=== PATIENT | female | born 1945 | race Caucasian/White ===

== ENCOUNTER → 2017-06-09 13:33 | Outpatient (CLI) | payer MEDICARE, SELFPAY ==
[2017-06-09 14:56] LABS: Absolute Neutrophil Count 3.6 X10^3/uL (2.0-7.7); Basophil# 0.01 X10^3/uL; Basophil% 0.1 % (0-1); Eosinophil# 0.08 X10^3/uL; Eosinophils% 1.2 % (0-5); Hematocrit 40.6 % (37-47); Hemoglobin 13.6 g/dl (12.0-15.0); Lymphocyte % 36.8 % (19-41); Mean Corp Hgb Conc 33.5 g/gl (32-36); Mean Corpuscular Hgb 30.3 pg (27.0-32.0); Mean Corpuscular Volume 90.4 fL (81-99); Mean Platelet Vol. 10.6 fl (6.2-12.0); Monocyte# 0.59 X10^3/uL; Monocyte% 8.7 % (0-10); Neutrophil # 3.61 X10^3/uL (2.7-7.7); Neutrophil % 53.2 % (47-70); POSITIVE COUNT NO; POSITIVE DIFFERENTIAL NO; POSITIVE MORPHOLOGY NO; Platelet Count 314 K/mm3 (150-450); RBC Distribution Width CV 13.4 % (11.6-14.6); RBC Distribution Width SD 43.9 fl (35.1-43.9); Red Blood Count 4.49 M/mm3 (4.2-5.4); White Blood Count 6.8 K/mm3 (4.4-11.0)
[2017-06-09 15:19] LABS: ALB/GLOB Ratio 1.2 RATIO (0.9-2.4); AST(SGOT) 20 U/L (15-37); Alanine Aminotransfer ALT/SGPT 23 U/L (13-56); Alkaline Phosphatase 117 U/L (45-117); Anion Gap 7 (5-15); BUN 10 mg/dL (7-18); BUN/Creat Ratio 15.7 RATIO (10-20); Calcium,Total 8.9 mg/dL (8.5-10.1); Chloride 99 mmol/L (98-107); Creatinine, Serum 0.64 mg/dL (0.55-1.02); EST Glomerular Filtration Rate 97 mL/min (>60); Est Glom Filt Rate - Afr Amer 118 mL/min (>60); Globulin 3.3 g/dL (2.2-4.2); Glucose 96 mg/dL (74-106); Potassium 4.2 mmol/L (3.5-5.1); Protein, Total 7.3 g/dL (6.4-8.2); Sodium Level 134 mmol/L (136-145); Thyroid Stim Hormone (TSH) 2.21 uIU/mL (0.358-3.74); Vitamin D,25 Hydroxy 31.2 ng/mL (29.95-100.01)
== END ==
PROVIDERS: Family Provider Family Medicine Geriatric Medicine; PCP Family Medicine Geriatric Medicine; Visit Provider Family Medicine Geriatric Medicine
DX: I10 Essential (primary) hypertension (principal); E11.9 Type 2 diabetes mellitus without complications; E55.9 Vitamin D deficiency, unspecified
CPT/HCPCS: 36415; 80053; 82306; 84443; 85025

== ENCOUNTER → 2017-12-11 14:35 | Outpatient (CLI) | payer MEDICARE, SELFPAY ==
[2017-12-11 17:28] LABS: Absolute Lymphocyte Count 1.71 X10^3/ul (0.83-4.51); Absolute Neutrophil Count 2.4 X10^3/uL (2.0-7.7); Basophil# 0.01 X10^3/uL; Basophil% 0.2 % (0-1); Eosinophils% 2.1 % (0-5); Hematocrit 38.6 % (37-47); Hemoglobin 13.2 g/dl (12.0-15.0); Lymphocyte # 1.71 X10^3/ul (4.0); Mean Corp Hgb Conc 34.2 g/gl (32-36); Mean Corpuscular Hgb 30.8 pg (27.0-32.0); Mean Platelet Vol. 10.4 fl (6.2-12.0); Monocyte# 0.51 X10^3/uL; Monocyte% 10.7 % (0-10); Neutrophil # 2.41 X10^3/uL (2.7-7.7); Neutrophil % 50.8 % (47-70); Platelet Count 294 K/mm3 (150-450); RBC Distribution Width CV 13.5 % (11.6-14.6); Red Blood Count 4.29 M/mm3 (4.2-5.4); White Blood Count 4.8 K/mm3 (4.4-11.0)
[2017-12-11 17:30] LABS: POSITIVE COUNT NO; POSITIVE DIFFERENTIAL NO; POSITIVE MORPHOLOGY NO
[2017-12-11 17:57] LABS: ALB/GLOB Ratio 1.2 RATIO (0.9-2.4); AST(SGOT) 21 U/L (15-37); Alanine Aminotransfer ALT/SGPT 24 U/L (13-56); Albumin, Serum 3.9 g/dL (3.2-5.0); Alkaline Phosphatase 100 U/L (45-117); Anion Gap 10 (5-15); BUN 6 mg/dL (7-18); BUN/Creat Ratio 9.6 RATIO (10-20); Calcium,Total 9.4 mg/dL (8.5-10.1); Chloride 101 mmol/L (98-107); Creatinine, Serum 0.63 mg/dL (0.55-1.02); EST Glomerular Filtration Rate 99 mL/min (>60); Est Glom Filt Rate - Afr Amer 119 mL/min (>60); Globulin 3.3 g/dL (2.2-4.2); Glucose 92 mg/dL (74-106); Potassium 3.8 mmol/L (3.5-5.1); Protein, Total 7.2 g/dL (6.4-8.2); Sodium Level 135 mmol/L (136-145); Thyroid Stim Hormone (TSH) 1.41 uIU/mL (0.358-3.74)
[2017-12-12 09:13] LABS: Vitamin D,25 Hydroxy 23.4 ng/mL (29.95-100.01)
== END ==
PROVIDERS: Family Provider Family Medicine Geriatric Medicine; PCP Family Medicine Geriatric Medicine; Visit Provider Family Medicine Geriatric Medicine
DX: E11.9 Type 2 diabetes mellitus without complications (principal); I10 Essential (primary) hypertension; E55.9 Vitamin D deficiency, unspecified
CPT/HCPCS: 36415; 80053; 82306; 84443; 85025

== ENCOUNTER → 2018-06-09 13:51 | Outpatient (CLI) | payer MEDICARE, SELFPAY ==
[2018-06-09 16:35] LABS: Absolute Lymphocyte Count 2.44 X10^3/ul (0.83-4.51); Absolute Neutrophil Count 2.7 X10^3/uL (2.0-7.7); Basophil# 0.01 X10^3/uL; Basophil% 0.2 % (0-1); Eosinophil# 0.08 X10^3/uL; Eosinophils% 1.4 % (0-5); Hematocrit 39.4 % (37-47); Hemoglobin 13.1 g/dl (12.0-15.0); Lymphocyte # 2.44 X10^3/ul (4.0); Lymphocyte % 42.4 % (19-41); Mean Corp Hgb Conc 33.2 g/gl (32-36); Mean Corpuscular Hgb 30.2 pg (27.0-32.0); Mean Corpuscular Volume 90.8 fL (81-99); Mean Platelet Vol. 10.1 fl (6.2-12.0); Monocyte# 0.56 X10^3/uL; Monocyte% 9.7 % (0-10); Neutrophil # 2.66 X10^3/uL (2.7-7.7); Neutrophil % 46.3 % (47-70); Platelet Count 309 K/mm3 (150-450); RBC Distribution Width CV 13.9 % (11.6-14.6); RBC Distribution Width SD 45.4 fl (35.1-43.9); Red Blood Count 4.34 M/mm3 (4.2-5.4); White Blood Count 5.8 K/mm3 (4.4-11.0)
[2018-06-09 16:36] LABS: POSITIVE COUNT NO; POSITIVE DIFFERENTIAL NO; POSITIVE MORPHOLOGY NO
[2018-06-09 17:10] LABS: Vitamin D,25 Hydroxy 27.2 ng/mL (29.95-100.01)
[2018-06-09 17:14] LABS: ALB/GLOB Ratio 1.2 RATIO (0.9-2.4); AST(SGOT) 20 U/L (15-37); Alanine Aminotransfer ALT/SGPT 23 U/L (13-56); Albumin, Serum 3.8 g/dL (3.2-5.0); Alkaline Phosphatase 103 U/L (45-117); Anion Gap 7 (5-15); BUN 12 mg/dL (7-18); BUN/Creat Ratio 11.3 RATIO (10-20); Calcium,Total 9.3 mg/dL (8.5-10.1); Chloride 103 mmol/L (98-107); Creatinine, Serum 1.06 mg/dL (0.55-1.02); EST Glomerular Filtration Rate 54 mL/min (>60); Est Glom Filt Rate - Afr Amer 65 mL/min (>60); Globulin 3.3 g/dL (2.2-4.2); Glucose 80 mg/dL (74-106); Potassium 4.2 mmol/L (3.5-5.1); Protein, Total 7.1 g/dL (6.4-8.2); Sodium Level 137 mmol/L (136-145); Thyroid Stim Hormone (TSH) 3.46 uIU/mL (0.358-3.74)
== END ==
PROVIDERS: Family Provider Family Medicine Geriatric Medicine; PCP Family Medicine Geriatric Medicine; Visit Provider Family Medicine Geriatric Medicine
DX: E11.9 Type 2 diabetes mellitus without complications (principal); E55.9 Vitamin D deficiency, unspecified; I10 Essential (primary) hypertension
CPT/HCPCS: 36415; 80053; 82306; 84443; 85025

== ENCOUNTER → 2018-08-20 17:00 | Outpatient (CLI) | payer MEDICARE, SELFPAY | PROVIDERS: Family Provider Family Medicine Geriatric Medicine; PCP Family Medicine Geriatric Medicine; Visit Provider Family Medicine Geriatric Medicine | DX: N39.0 Urinary tract infection, site not specified (principal) | CPT/HCPCS: 87086; 87088; 87186 ==

== ENCOUNTER → 2018-12-15 08:58 | Outpatient (CLI) | payer MEDICARE, SELFPAY ==
[2018-12-15 12:16] LABS: Absolute Lymphocyte Count 2.34 X10^3/uL (0.83-4.51); Absolute Neutrophil Count 2.6 X10^3/uL (2.0-7.7); Basophil# 0.01 X10^3/uL; Basophil% 0.2 % (0-1); Eosinophils% 1.8 % (0-5); Hematocrit 38.7 % (37-47); Hemoglobin 13.1 g/dL (12.0-15.0); Lymphocyte # 2.34 X10^3/ul (4.0); Lymphocyte % 42.5 % (19-41); Mean Corp Hgb Conc 33.9 g/dL (32-36); Mean Corpuscular Hgb 30.7 pg (27.0-32.0); Mean Corpuscular Volume 90.6 fL (81-99); Mean Platelet Vol. 9.9 fl (6.2-12.0); Monocyte# 0.48 X10^3/uL; Monocyte% 8.7 % (0-10); NRBC Flagged by Analyzer 0 % (0-5); Neutrophil # 2.56 X10^3/uL (2.7-7.7); Neutrophil % 46.6 % (47-70); Platelet Count 323 K/mm3 (150-450); RBC Distribution Width CV 13.8 % (11.6-14.6); RBC Distribution Width SD 45.3 fl (35.1-43.9); Red Blood Count 4.27 M/mm3 (4.2-5.4); White Blood Count 5.5 K/mm3 (4.4-11.0)
[2018-12-15 12:39] LABS: Vitamin D,25 Hydroxy 30.4 ng/mL (29.95-100.01)
[2018-12-15 12:44] LABS: ALB/GLOB Ratio 0.9 RATIO (0.9-2.4); AST(SGOT) 12 U/L (15-37); Alanine Aminotransfer ALT/SGPT 22 U/L (13-56); Albumin, Serum 3.4 g/dL (3.2-5.0); Alkaline Phosphatase 107 U/L (45-117); Anion Gap 7 (5-15); BUN 8 mg/dL (7-18); BUN/Creat Ratio 12.8 RATIO (10-20); Calcium,Total 9.1 mg/dL (8.5-10.1); Chloride 107 mmol/L (98-107); Creatinine, Serum 0.63 mg/dL (0.55-1.02); EST Glomerular Filtration Rate 99 mL/min (>60); Est Glom Filt Rate - Afr Amer 119 mL/min (>60); Globulin 3.7 g/dL (2.2-4.2); Glucose 98 mg/dL (74-106); Potassium 3.7 mmol/L (3.5-5.1); Protein, Total 7.1 g/dL (6.4-8.2); Sodium Level 140 mmol/L (136-145); Thyroid Stim Hormone (TSH) 1.58 uIU/mL (0.358-3.74)
== END ==
PROVIDERS: Family Provider Family Medicine Geriatric Medicine; PCP Family Medicine Geriatric Medicine; Visit Provider Family Medicine Geriatric Medicine
DX: E11.9 Type 2 diabetes mellitus without complications (principal); I10 Essential (primary) hypertension; E55.9 Vitamin D deficiency, unspecified; N39.0 Urinary tract infection, site not specified
CPT/HCPCS: 36415; 80053; 82306; 84443; 85025; 87086

== ENCOUNTER → 2019-12-23 10:11 | Outpatient (CLI) | payer MEDICARE, SELFPAY ==
[2019-12-23 12:35] LABS: Absolute Lymphocyte Count 1.86 X10^3/uL (0.83-4.51); Absolute Neutrophil Count 2.8 X10^3/uL (2.0-7.7); Basophil# 0.02 X10^3/uL; Basophil% 0.4 % (0-1); Eosinophil# 0.11 X10^3/uL; Eosinophils% 2.1 % (0-5); Hematocrit 38.2 % (37-47); Hemoglobin 12.9 g/dL (12.0-15.0); Lymphocyte # 1.86 X10^3/ul (4.0); Lymphocyte % 34.7 % (19-41); Mean Corp Hgb Conc 33.8 g/dL (32-36); Mean Corpuscular Hgb 29.6 pg (27.0-32.0); Mean Corpuscular Volume 87.6 fL (81-99); Mean Platelet Vol. 10.2 fl (6.2-12.0); Monocyte# 0.53 X10^3/uL; Monocyte% 9.9 % (0-10); NRBC Flagged by Analyzer 0 % (0-5); Neutrophil # 2.83 X10^3/uL (2.7-7.7); Neutrophil % 52.7 % (47-70); Platelet Count 346 K/mm3 (150-450); RBC Distribution Width CV 13.4 % (11.6-14.6); RBC Distribution Width SD 43.7 fl (35.1-43.9); Red Blood Count 4.36 M/mm3 (4.2-5.4); White Blood Count 5.4 K/mm3 (4.4-11.0)
[2019-12-23 12:50] LABS: Vitamin D,25 Hydroxy 43.3 ng/mL
[2019-12-23 12:58] LABS: ALB/GLOB Ratio 1.1 RATIO (0.9-2.4); AST(SGOT) 18 U/L (15-37); Alanine Aminotransfer ALT/SGPT 18 U/L (13-56); Albumin, Serum 3.8 g/dL (3.2-5.0); Alkaline Phosphatase 103 U/L (45-117); Anion Gap 6 (5-15); BUN 12 mg/dL (7-18); BUN/Creat Ratio 17.6 RATIO (10-20); Calcium,Total 9.6 mg/dL (8.5-10.1); Chloride 102 mmol/L (98-107); Creatinine, Serum 0.68 mg/dL (0.55-1.02); EST Glomerular Filtration Rate 89 mL/min (>60); Est Glom Filt Rate - Afr Amer 108 mL/min (>60); Globulin 3.6 g/dL (2.2-4.2); Glucose 101 mg/dL (74-106); Potassium 3.8 mmol/L (3.5-5.1); Protein, Total 7.4 g/dL (6.4-8.2); Sodium Level 135 mmol/L (136-145); Thyroid Stim Hormone (TSH) 2.24 uIU/mL (0.358-3.74)
== END ==
PROVIDERS: PCP Family Medicine Geriatric Medicine; Visit Provider Family Medicine Geriatric Medicine
DX: E11.9 Type 2 diabetes mellitus without complications (principal); E55.9 Vitamin D deficiency, unspecified; I10 Essential (primary) hypertension
CPT/HCPCS: 36415; 80053; 82306; 84443; 85025

== ENCOUNTER → 2020-06-22 09:49 | Outpatient (CLI) | payer MEDICARE, SELFPAY ==
[2020-06-22 13:10] LABS: Absolute Lymphocyte Count 2.94 X10^3/uL (0.83-4.51); Absolute Neutrophil Count 2.4 X10^3/uL (2.0-7.7); Basophil# 0.03 X10^3/uL; Basophil% 0.5 % (0-1); Eosinophil# 0.19 X10^3/uL; Eosinophils% 3.1 % (0-5); Hematocrit 40.3 % (37-47); Hemoglobin 13.3 g/dL (12.0-15.0); Lymphocyte # 2.94 X10^3/ul (4.0); Mean Corpuscular Hgb 29.9 pg (27.0-32.0); Mean Corpuscular Volume 90.6 fL (81-99); Mean Platelet Vol. 10.5 fl (6.2-12.0); Monocyte# 0.58 X10^3/uL; Monocyte% 9.5 % (0-10); NRBC Flagged by Analyzer 0 % (0-5); Neutrophil # 2.38 X10^3/uL (2.7-7.7); Neutrophil % 38.7 % (47-70); Platelet Count 350 K/mm3 (150-450); RBC Distribution Width CV 13.4 % (11.6-14.6); RBC Distribution Width SD 44.6 fl (35.1-43.9); Red Blood Count 4.45 M/mm3 (4.2-5.4); White Blood Count 6.1 K/mm3 (4.4-11.0)
[2020-06-22 13:23] LABS: ALB/GLOB Ratio 1.2 RATIO (0.9-2.4); AST(SGOT) 22 U/L (15-37); Alanine Aminotransfer ALT/SGPT 26 U/L (13-56); Albumin, Serum 3.8 g/dL (3.2-5.0); Alkaline Phosphatase 107 U/L (45-117); Anion Gap 5 (5-15); BUN 17 mg/dL (7-18); BUN/Creat Ratio 23.8 RATIO (10-20); Calcium,Total 9.5 mg/dL (8.5-10.1); Chloride 99 mmol/L (98-107); Creatinine, Serum 0.72 mg/dL (0.55-1.02); EST Glomerular Filtration Rate 84 mL/min (>60); Est Glom Filt Rate - Afr Amer 102 mL/min (>60); Globulin 3.3 g/dL (2.2-4.2); Glucose 91 mg/dL (74-106); Potassium 3.6 mmol/L (3.5-5.1); Protein, Total 7.1 g/dL (6.4-8.2); Sodium Level 135 mmol/L (136-145); Thyroid Stim Hormone (TSH) 2.15 uIU/mL (0.358-3.74)
== END ==
PROVIDERS: PCP Family Medicine Geriatric Medicine; Visit Provider Family Medicine Geriatric Medicine
DX: I10 Essential (primary) hypertension (principal); E11.9 Type 2 diabetes mellitus without complications; E55.9 Vitamin D deficiency, unspecified
CPT/HCPCS: 36415; 80053; 82306; 84443; 85025

== ENCOUNTER → 2020-12-27 11:10 | Outpatient (CLI) | payer MEDICARE, SELFPAY ==
[2020-12-27 13:10] LABS: Absolute Lymphocyte Count 1.57 X10^3/uL (0.83-4.51); Absolute Neutrophil Count 2.3 X10^3/uL (2.0-7.7); Basophil# 0.03 X10^3/uL; Basophil% 0.7 % (0-1); Eosinophil# 0.16 X10^3/uL; Eosinophils% 3.6 % (0-5); Hematocrit 41.1 % (37-47); Hemoglobin 13.4 g/dL (12.0-15.0); Lymphocyte # 1.57 X10^3/ul (0.83-4.51); Lymphocyte % 35.2 % (19-41); Mean Corp Hgb Conc 32.6 g/dL (32-36); Mean Corpuscular Hgb 30.1 pg (27.0-32.0); Mean Corpuscular Volume 92.4 fL (81-99); Mean Platelet Vol. 10.2 fl (6.2-12.0); Monocyte# 0.41 X10^3/uL; Monocyte% 9.2 % (0-10); NRBC Flagged by Analyzer 0 % (0-5); Neutrophil # 2.29 X10^3/uL (2.7-7.7); Neutrophil % 51.3 % (47-70); Platelet Count 320 K/mm3 (150-450); RBC Distribution Width CV 13.5 % (11.6-14.6); RBC Distribution Width SD 45.4 fl (35.1-43.9); Red Blood Count 4.45 M/mm3 (4.2-5.4); White Blood Count 4.5 K/mm3 (4.4-11.0)
[2020-12-27 13:55] LABS: AST(SGOT) 16 U/L (15-37); Alanine Aminotransfer ALT/SGPT 21 U/L (13-56); Albumin, Serum 3.8 g/dL (3.2-5.0); Alkaline Phosphatase 108 U/L (45-117); Anion Gap 6 (5-15); BUN 20 mg/dL (7-18); BUN/Creat Ratio 27.2 RATIO (10-20); Calcium,Total 9.2 mg/dL (8.5-10.1); Chloride 106 mmol/L (98-107); Creatinine, Serum 0.73 mg/dL (0.55-1.02); EST Glomerular Filtration Rate 82 mL/min (>60); Est Glom Filt Rate - Afr Amer 99 mL/min (>60); Globulin 3.8 g/dL (2.2-4.2); Glucose 90 mg/dL (74-106); Potassium 3.3 mmol/L (3.5-5.1); Protein, Total 7.6 g/dL (6.4-8.2); Sodium Level 140 mmol/L (136-145); Thyroid Stim Hormone (TSH) 1.25 uIU/mL (0.358-3.74)
[2020-12-27 14:06] LABS: Vitamin D,25 Hydroxy 39.9 ng/mL
== END ==
PROVIDERS: PCP Family Medicine Geriatric Medicine; Visit Provider Family Medicine Geriatric Medicine
DX: E11.9 Type 2 diabetes mellitus without complications (principal); E55.9 Vitamin D deficiency, unspecified; I10 Essential (primary) hypertension
CPT/HCPCS: 36415; 80053; 82306; 84443; 85025

== ENCOUNTER 2021-03-30 05:31 | Day surgery (SDC) | payer MEDICARE, SELFPAY ==
[2021-03-30] VITALS (9 sets, daily range): BP systolic 93–135; BP diastolic 44–83; PULSE 55–64; RESP 14–16; TEMP 36.1–36.7; O2SAT 90–94; BMI 27.3
--- NOTE | 2021-03-30 | LES_PTH ---
PATIENT: JOLYNN WALTON LOC: [facility] [place] U#:[id number] AGE/SX: 75/F ROOM: RE03/30/[address]: Dr. Dev Del Real MD : [id number] BED: DIS: 03/30/2021 SPEC #: [id number] RECD: 03/30/21 08:52 STATUS: STEFF REDany #: [id number] ERIC: 03/30/21 00:[address]: Dev Del Real DEPT: SURGICAL PATHOLOGY RECD BY: Shayy Kahn ENTERED: 03/30/21 10:42 SP TYPE: Lesion OTHR DR: Dr. Faraz Merritt MD Tissues: A - Skin of nose, NOS B - Skin of nose, NOS C - Skin of nose, NOS D - Skin of nose, NOS Procedures: Frozen Section (charge) Surgery Specimen Level IV HEADER OPERATION: Excision, lesions base of nose, intranasal lesions x2, frozen section PRE-OP DIAGNOSIS: 1.8 cm lesion base of left nostril involving the external vestibule and extending onto the nasal floor of the nasal cavity and extending inferiorly onto the skin of upper lip; 7 mm actinic lesion nasal dorsum, superior and inferior TISSUE SUBMITTED: A ? 1.8 cm basal cell carcinoma base of left nostril onto the nasal floor of nasal cavity and extending inferiorly onto skin of upper lip, B ? 7 mm actinic lesion nasal dorsum, superior, C - 7 mm actinic lesion nasal dorsum, inferior, D ? 2 cm basal cell carcinoma additional margins, suture perry 12 o?clock FROZEN SECTION DIAGNOSIS A. Skin lesion, base of left nostril, shave biopsy: Basal cell carcinoma. B. Skin lesion, nasal dorsum inferior, shave biopsy: Actinic change. C. Skin lesion, nasal dorsum, superior, shave biopsy: Actinic change. Focal area suspicious for basal cell carcinoma. AM:jackeline 03/30/2021 MICROSCOPIC DIAGNOSIS A. Skin lesion at base of left nostril, shave biopsy: Basal cell carcinoma extending to deep margin of excision. B. Skin of nasal dorsum, inferior, shave biopsy: Actinic change. Extensive solar elastosis. C. Skin of nasal dorsum, superior, shave biopsy: Actinic change with seborrheic keratosis-like features. Extensive solar elastosis. D. Skin lesion at base of left nostril, excisional biopsy: Basal cell carcinoma. Changes of recent biopsy. Solar elastosis. See comment. AM:jackeline 04/02/2021 COMMENT D. The lesion extends to the peripheral and focal deep 9 o?clock margin of excision. Clinical correlation is suggested. MICROSCOPIC DESCRIPTION Slides are reviewed. GROSS DESCRIPTION A - Received fresh for frozen section consultation labeled with the patient's name is a specimen designated skin lesion base of left nostril. The specimen consists of a discoid fragment of gutiérrez shaved skin measuring 1.7 x 1.2 x 0.5 cm. The specimen is inked, serially sectioned and totally submitted in one cassette for frozen section consultation. B - Received fresh for frozen section consultation labeled with the patient's name is a specimen designated ?lesion nasal dorsum, inferior.? The specimen consists of a discoid fragment of gutiérrez shaved skin measuring 1.2 x 0.5 x 0.2 cm. The specimen is inked, serially sectioned and totally submitted in one cassette for frozen section consultation. C - Received fresh for frozen section consultation labeled with the patient's name is a specimen designated ?lesion nasal dorsum, superior.? The specimen consists of a discoid fragment of gutiérrez shaved skin measuring 0.8 x 0.7 x 0.1 cm. The specimen is inked, serially sectioned and totally submitted in one cassette for frozen section consultation. D - Received in fixative is one container labeled with the patient's name and designated basal cell carcinoma additional margins. The specimen consists of a C-shaped fragment of skin, attached soft tissue and cartilage measuring 3.2 x 2 x 0.5 cm. An ulcerated area is present on the cutaneous surface measuring 2 cm. A suture is present at the 12 o?clock margin. The specimen is inked as follows: 12 o?clock ? black, 3 o?clock ? green, 6 o?clock ? blue and 9 o?clock ? red. The specimen is serially sectioned and totally submitted in three cassettes. / AM:jackeline 03/30/21 TC:0 CPT: 60268 x3, 93140 x4
--- NOTE | 2021-03-30 02:39 | PCM.HP.BLA ---
History and Physical Date of Admission: 03/30/21 HISTORY OF PRESENT ILLNESS 75 YEAR OLD WOMAN PRESENTS FOR EVALUATION FOR TBSE. SHE HAS CONCERNS ABOUT A LESION LOCATED AT THE BASE OF HER LEFT NOSTRIL INVOLVING THE EXTERNAL VESTIBULE AND EXTENDING ONTO THE NASAL FLOOR OF THE NASAL CAVITY. THERE IS ALSO EXTENSION INFERIORLY ONTO THE SKIN OF THE UPPER LIP. SHE ALSO COMPLAINS OF TWO LESIONS ON HER NASAL DORSUM THAT ARE TANNISH IN COLOR AND SCABBY. SHE DENIES FEVER. SHE DENIES TRAUMA. SHE DENIES RECENT INFECTION. SHE PRESENTS AT THIS TIME FOR FURTHER EVALUATION AND TREATMENT. PAST MEDICAL HISTORY Actinic keratosis Anxiety Bone fracture Carpal tunnel syndrome of right wrist Cataracts, bilateral Diabetes type 2, controlled Family history of skin cancer Former smoker Hemoglobin A1c less than 7.0% High blood pressure High cholesterol Neoplasm of unspecified behavior of bone, soft tissue, and skin UTI (urinary tract infection) PAST SURGICAL HISTORY History of carpal tunnel release History of left knee surgery ALLERGIES Cephalosporins pneumococcal vaccine tetracycline codeine Sulfa (Sulfonamide Antibiotics) MEDICATIONS diazepam diltiazem HCl hydrochlorothiazide metformin potassium chloride [Klor-Con M20] simvastatin aspirin FAMILY HISTORY Daughter - Alcoholism, Alcoholic cirrhosis of liver, Skin cancer Father - Angina at rest, Hypertension Son - Anxiety, Diabetes, Hypertension, Skin cancer Grandmother - Arthritis Mother - Diabetes Grandmother - CVA (cerebral vascular accident) Brother - Cancer, Diabetes Sister - Heart disease Brother - Lung cancer Other - Family history of skin cancer SOCIAL HISTORY Smoking Status: Former smoker second hand exposure: Yes alcohol intake: never substance use type: does not use REVIEW OF SYSTEMS General - Denies fever, fatigue, and weight loss. Eyes - Has cataracts. Denies glaucoma. ENT - Denies nasal congestion and sore throat. Endocrine - Denies excessive thirst and urination. Skin - Denies skin cancer. DOES HAVE FAMILY HISTORY OF SKIN CANCER. HAS ENLARGING LESION LEFT NOSE INVOLVING THE EXTERNAL VESTIBULE AND EXTENDING ONTO THE NASAL FLOOR OF THE NASAL CAVITY AND ONTO THE SKIN OF THE UPPER LIP. ALSO HAS ENLARGING SCABBY LESIONS X2 NASAL DORSUM. Musculoskeletal - Denies joint pain, weakness of muscles and joints, back pain, and arthritis. Has joint stiffness. Neuro - Denies headaches. Cardiovascular - Denies chest pain, fatigue, and shortness of breath with exertion. Psych - Denies anxiety and depression. Respiratory - Denies chronic cough and shortness of breath. PATIENT IS A FORMER SMOKER. Gastrointestinal - Denies nausea, vomiting, diarrhea, and constipation. Hematologic - Denies abnormal bruising and bleeding. Genitourinary - Denies hematuria and urinary frequency. PHYSICAL EXAMINATION General - Alert and Oriented HEENT - PERRL. EOMI. Throat is clear. THERE IS A LESION LOCATED AT THE BASE OF HER LEFT NOSTRIL INVOLVING THE EXTERNAL VESTIBULE AND EXTENDING ONTO THE NASAL FLOOR OF THE NASAL CAVITY. THERE IS ALSO EXTENSION INFERIORLY ONTO THE SKIN OF THE UPPER LIP. MEASURES 2 X 1.2 CM. CLINICALLY CONSISTENT WITH A BASAL CELL CARCINOMA. IT IS NODULAR AND RAISED IN CONFIGURATION. HAS IRREGULAR BORDERS. NO ULCERATION. IT EXTENDS INFERIORLY ONTO THE SKIN OF THE UPPER LIP CLOSE TO THE LEFT PHILTRAL COLUMN. The external nasal vestibular opening on the right measures 1 cm and on the left measures 2 cm. The growth of the tumor has distorted the left nasal ala ON THE NASAL DORSUM, SUPERIOR, IS A TANNISH SCABBY LESION THAT MEASURES 7 MM. HAS IRREGULAR BORDERS. NO ULCERATION. LESION IS NONTENDER. LOOKS ACTINIC IN NATURE. ON THE NASAL DORSUM, INFERIOR, IS A TANNISH SCABBY LESION THAT MEASURES 7 MM. HAS IRREGULAR BORDERS. NO ULCERATION. LESION IS NONTENDER. LOOKS ACTINIC IN NATURE. No other suspicious lesions noted. Neck - Supple and nontender. No cervical adenopathy. No suspicious lesions noted. Lungs - Clear to auscultation. Heart - Regular rate and rhythm. Abdomen - Soft and nondistended. Extremities - FROM. No axillary adenopathy. Radial pulses are palpable. No suspicious lesions noted. Neuro - CN II-XII grossly intact. Psych - Normal mood and affect. ASSESSMENT 1. 2 CM LESION BASE OF LEFT NOSTRIL INVOLVING THE EXTERNAL VESTIBULE AND EXTENDING ONTO THE NASAL FLOOR OF THE NASAL CAVITY AND EXTENDING INFERIORLY ONTO THE SKIN OF THE UPPER LIP. 2. 7 MM ACTINIC LESION NASAL DORSUM, SUPERIOR. 3. 7 MM ACTINIC LESION NASAL DORSUM, INFERIOR. 4. FAMILY HISTORY OF SKIN CANCER. 5. DIABETES MELLITUS. 6. HGBA1C 5.7. 7. FORMER SMOKER. PLAN PATIENT HAS A LESION BASE OF LEFT NOSTRIL INVOLVING THE EXTERNAL VESTIBULE AND EXTENDING ONTO THE NASAL FLOOR OF THE NASAL CAVITY AND EXTENDING INFERIORLY ONTO THE SKIN OF THE UPPER LIP. EXCISION OF THIS LESION WILL INVOLVE MULTIPLE AESTHETIC SUBUNITS OF THE NOSE AND UPPER LIP. FIRST STEP IS TO ESTABLISH A DIAGNOSIS. THE LESION IS CLINICALLY CONSISTENT WITH A BASAL CELL CARCINOMA. WILL DO A FROZEN SECTION INITIALLY. ONCE BASAL CELL CARCINOMA IS CONFIRMED THE LESION NEEDS TO BE EXCISED WHICH WILL INVOLVE THE LATERAL NASAL ALA AND COLUMELLA A PARTIAL RHINECTOMY. SHE WILL NEED COMPLEX NASAL RECONSTRUCTION WITH A 2 STAGE FOREHEAD FLAP TO PROVIDE SOFT TISSUE COVERAGE, CARTILAGE GRAFTING FOR SUPPORT, AND NASAL LINING FLAPS OR SKIN GRAFTING FOR THE INNER MUCOSAL LINING. IN 3 WEEKS PATIENT WILL RETURN TO THE OPERATING ROOM FOR THE SECOND STAGE WHICH IS DIVISION AND INSET FOREHEAD FLAP TO THE NOSE. ALSO AT THE TIME OF THE FOREHEAD FLAP THERE WILL BE A WOUND INVOLVING THE SKIN OF THE UPPER LIP. PERIALAR CRESCENTERIC ADVANCEMENT SKIN FLAPS WOULD BE NECESSARY. BILATERAL FLAPS MAY BE NECESSARY. OTHER OPTION WOULD BE JUST TO SKIN GRAFT THE UPPER LIP DEFECT INITIALLY. AFTER THE COMPLEX NASAL RECONSTRUCTION IS COMPLETED AND HEALED, CAN RE-EVALUATE THE UPPER LIP IN 9-12 MONTHS FOR A SURGICAL EXCISION OF THE SKIN GRAFT AND THEN PROCEED WITH THE PERIALAR CRESCENTERIC ADVANCEMENT FLAPS. DEPENDING ON THE UPPER LIP DEFECT WHICH MAY EXTEND CENTRALLY, THE CENTRAL DEFECT MAY NEED AN ADDITIONAL RUDY CROSS LIP FLAP. I DON'T WANT TO DO THE FOREHEAD FLAP AND THESE MULTIPLE LIP FLAPS AT THE SAME TIME. ALSO AT THE TIME OF THE INITIAL PARTIAL RHINECTOMY, I WOULD BIOPSY THE LESIONS ON THE NASAL DORSUM A SHAVE EXCISION. IF ACTINIC, I SUSPECT, THEN CAN PROCEED WITH ALDARA CREAM THERAPY. IT IS APPLIED DAILY AT NIGHT 5 DAYS PER WEEK FOR 6 WEEKS. THEN RE-EVALUATE IN TWO MONTHS. OTHER OPTION IS IF IT'S ACTINIC, PROCEED WITH SURGICAL EXCISION. IF THE BIOPSIES SHOW CARCINOMA THEN PROCEED WITH SURGICAL EXCISION. THE WOUNDS CAN EITHER BE SKIN GRAFTED OR BE INCORPORATED INTO THE FOREHEAD FLAP. THESE SURGERIES WOULD BE DONE UNDER GENERAL ANESTHESIA. THE FORMATION OF THE FOREHEAD FLAP WOULD REQUIRE A SURGICAL OBSERVATION OVERNIGHT STAY IN THE HOSPITAL. THE OTHERS CAN PROBABLY BE DONE AN OUTPATIENT. THE FOREHEAD WILL NEED TO EXTEND ALL THE WAY TO THE BASE OF THE COLUMELLA AND LATERAL NASAL ALA. SO THE FLAP WOULD EXTEND INTO THE SCALP TO PROVIDE ENOUGH LENGTH TO ROTATE THE FLAP. THE TIP OF THE FLAP MAY HAVE RESIDUAL HAIR GROWTH THAT CAN BE ADDRESSED IN THE FUTURE WITH LASER HAIR REMOVAL. AN ADDITIONAL FLAP THAT CAN BE USED IF NECESSARY TO HELP CLOSE THIS COMPLEX CARCINOMA DEFECT IS THE NASOLABIAL FLAP WHICH IS ALSO A TWO STAGE FLAP THAT INVOLVES A DIVISION AND INSET IN 3 WEEKS. CARTILAGE GRAFTS CAN COME FROM THE NASAL DORSUM, THE EARS, AND IF NECESSARY FROM THE RIB. Patient was informed of the risks and complications of the procedure including alternatives to surgery. These were discussed with the patient personally. Patient voices understanding and wishes to proceed. Some of the risks and complications were included in a form from the [employer] [place] [employer]. PATIENT HAS DIABETES MELLITUS. THE HGBA1C IS NOT GOING TO MATTER WHEN EXCISING THE CARCINOMA. HOWEVER, RECONSTRUCTING THE DEFECT IS ELECTIVE AND THE HGB A1C NEEDS TO BE LESS THAN 8. AT PRESENT, THE PATIENT HAD A HGBA1C DONE WHICH WAS 5.7 ON 12/27/20. We discussed the current risks associated with COVID-19. While it is understood that there is a community spread of COVID-19, the risk of candy COVID-19 while at [facility] ([facility]) is very low; however, the risk cannot be completely mitigated because of the community spread of the disease. We discussed in detail the risk of exposure to and/or potential harm posed by the COVID-19 virus with having a surgery/procedure at this time versus the risk of delaying the surgery/procedure. It is not possible to know either the risk of delaying the surgery or procedure or chance of getting an infection with perfect accuracy, but a joint decision was made to proceed at this time with the scheduled surgery/procedure as indicated on the consent form. Patient was notified that we will need to comply with any screening or testing [facility] wishes to perform or that surgery may be delayed for any positive results. Procedure Criteria Procedure Type: Elective COVID Risk Discussion: The surgeon/proceduralist and patient have discussed in detail the risk of exposure to and/or potential harm posed by the COVID-19 virus with having a surgery/procedure at this time versus the risk of delaying the surgery/procedure. It is not possible to know either the risk of delaying the surgery or procedure or chance of getting an infection with perfect accuracy, but a joint decision was made between the patient and the surgeon/proceduralist to proceed at this time with the scheduled surgery/procedure as indicated on the consent form. Assessment & Plan Assessment/Plan (1) Neoplasm of unspecified behavior of bone, soft tissue, and skin: (2) Actinic keratosis: (3) Family history of skin cancer: (4) Diabetes type 2, controlled: (5) Hemoglobin A1c less than 7.0%: (6) Former smoker:
[2021-03-30] MEDS: Lactated Ringers 1,000 ML 15 ML IV (06:50)
[2021-03-30 07:30] LABS: Bedside Glucose 110 mg/dL (70-110)
[2021-03-30] MEDS: Lidocaine 1% /Epi 1:100 (20ml) 20 ML Vial (09:37)
[2021-03-30] MEDS: Mupirocin Ointment 22gm Tube 1 APPLIC (10:50)
--- NOTE | 2021-03-30 10:59 | OP.PCM_ITS ---
Problems Associated Problem List Diagnoses (1) Basal cell carcinoma (BCC) of left side of nose: (2) Basal cell carcinoma of skin of left upper lip: (3) Open wound of nasal cavity with complication: (4) Open wound of lip, complicated: (5) Actinic keratosis: (6) Diabetes type 2, controlled: (7) Former smoker: (8) Hemoglobin A1c less than 7.0%: (9) Family history of skin cancer: Report of Operation Date of Procedure: 03/30/21 Pre-Operative Diagnosis: 1. 2 CM LESION BASE OF LEFT NOSTRIL INVOLVING THE EXTERNAL VESTIBULE AND EXTENDING ONTO THE NASAL FLOOR OF THE NASAL CAVITY AND EXTENDING INFERIORLY ONTO THE SKIN OF THE UPPER LIP. 2. 7 MM ACTINIC LESION NASAL DORSUM, SUPERIOR. 3. 7 MM ACTINIC LESION NASAL DORSUM, INFERIOR. 4. FAMILY HISTORY OF SKIN CANCER. 5. DIABETES MELLITUS. 6. HGBA1C 5.7. 7. FORMER SMOKER. Post-Operative Diagnosis: 1. 2 CM basal cell carcinoma wound BASE OF LEFT NOSTRIL INVOLVING THE EXTERNAL VESTIBULE AND EXTENDING ONTO THE NASAL FLOOR OF THE NASAL CAVITY, lateral nasal alar rim laterally, base of columella medially, and SKIN OF THE UPPER LIP and philtrum inferiorly. 2. 2 cm basal cell carcinoma wound skin of upper lip and philtrum. 2. 7 MM ACTINIC LESION NASAL DORSUM, SUPERIOR, with possible small focus of basal cell carcinoma. 3. 7 MM ACTINIC LESION NASAL DORSUM, INFERIOR. 4. FAMILY HISTORY OF SKIN CANCER. 5. DIABETES MELLITUS. 6. HGBA1C 5.7. 7. FORMER SMOKER. Surgery/Procedure Performed:: 1. Surgical preparation left upper lip and philtrum with excision basal cell carcinoma from base of left nostril. 2. Excision 2 CM basal cell carcinoma BASE OF LEFT NOSTRIL INVOLVING THE EXTERNAL VESTIBULE AND EXTENDING ONTO THE NASAL FLOOR OF THE NASAL CAVITY, lateral nasal alar rim laterally, base of columella medially with partial rhinectomy. 3. Intradermal excision 7 MM ACTINIC LESION NASAL DORSUM, SUPERIOR, with possible small focus of basal cell carcinoma. 4. Intradermal excision 7 MM ACTINIC LESION NASAL DORSUM, INFERIOR. Description of Surgical Findings:: 75 YEAR OLD WOMAN PRESENTS FOR EVALUATION FOR TBSE. SHE HAS CONCERNS ABOUT A LESION LOCATED AT THE BASE OF HER LEFT NOSTRIL INVOLVING THE EXTERNAL VESTIBULE AND EXTENDING ONTO THE NASAL FLOOR OF THE NASAL CAVITY. THERE IS ALSO EXTENSION INFERIORLY ONTO THE SKIN OF THE UPPER LIP. SHE ALSO COMPLAINS OF TWO LESIONS ON HER NASAL DORSUM THAT ARE TANNISH IN COLOR AND SCABBY. SHE DENIES FEVER. SHE DENIES TRAUMA. SHE DENIES RECENT INFECTION. Patient was informed of the risks and complications of the procedure including alternatives to surgery. These were discussed with the patient personally. Patient voices understanding and wishes to proceed. Some of the risks and complications were included in a form from the [employer]. Frozen section base of left nostril involving the external vestibule and extending onto the nasal floor of the nasal cavity, lateral nasal alar rim laterally, base of columella medially, and skin of the upper lip and philtrum inferiorly - basal cell carcinoma. Frozen section lesion nasal dorsum, superior - actinic keratosis with possible small focus of basal cell carcinoma. Frozen section lesion nasal dorsum, inferior - actinic keratosis and no carcinoma seen. Size of complex left nasal defect with extension on to upper lip and philtrum - 4 x 4 cm. 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 Lesion base of left nostril involving the external vestibule and extending onto the nasal floor of the nasal cavity, lateral nasal alar rim laterally, base of columella medially, and skin of the upper lip and philtrum inferiorly to Pathology as a frozen section for analysis to rule out carcinoma. 2. Lesion nasal dorsum, superior, to Pathology as a frozen section for analysis to rule out carcinoma. 3. Lesion nasal dorsum, inferior, to Pathology as a frozen section for analysis to rule out carcinoma. 4. Basal cell carcinoma base of left nostril involving the external vestibule and extending onto the nasal floor of the nasal cavity, lateral nasal alar rim laterally, base of columella medially, and skin of the upper lip and philtrum inferiorly to Pathology. Drains: None. Estimated Blood Loss (mL): 20. Description of Procedure: Patient was taken to OR in supine position and was given IV sedation. The face was prepped and draped in the usual fashion. SCD's were placed for DVT prophylaxis. Perioperative antibiotics were given intravenously. The lesion base of left nostril and the lesions x2 nasal dorsum were infiltrated with xylocaine and epinephrine. After waiting 5 minutes for the anesthetic to take effect, I excised these lesions in an intradermal fashion and sent them to Pathology as frozen sections for analysis to rule out carcinoma. Frozen section showed the complex lesion base of left nostril was a basal cell carcinoma and the lesion nasal dorsum, inferior, was actinic keratosis and no carcinoma seen and the lesion nasal dorsum, superior, was actinic keratosis with possible small focus of basal cell carcinoma. Therefore further excision will be done for the basal cell carcinoma base of left nostril with a 1 cm margin in all directions. The additional margin involved the nasal floor of the nasal cavity, lateral nasal alar rim laterally, base of columella medially, and skin of upper lip and philtrum inferiorly. A suture was marked at the 12 oclock position for pathology orientation. The additional margin was then sent to Pathology for analysis to rule out carcinoma at the margins. For the nasal dorsum lesions, will wait for the permanent pathology to confirm the presence of a small focus of basal cell carcinoma. At the time of the complex nasal reconstruction, can excise both lesions nasal dorsum with skin grafting. I think if I used the proximal portion of the forehead flap to provide soft tissue coverage over the nasal dorsum, it may be too bulky. If I proceed this way, then at the division and inset of the forehead flap, I could debulk the portion over the nasal dorsum. I wouldn't debulk at the time of the creation of the flap because of the risk of vascular compromise to the flap. For these two actinic keratoses on her nasal dorsum, hemostasis was obtained with gauze compression along with silver nitrate chemical cauterization. Antibiotic ointment was applied. The size of the complex nasal wound with extension onto the upper lip is 4 x 4 cm. The complex nasal wound was dressed with Silver dressing followed by 2x2 gauze and secured to the skin with 4-0 Nylon tie over stent suture dressing. Patient tolerated the procedure well and was sent to PACU in satisfactory condition. Patient will be sent home on antibiotics and pain medication. Patient will followup in the office early next week for take down of the operative dressing and a wound check and for discussion of the pathology report when available. Grafts/Implants Used: None. Complications None. Admit VTE Documentation VTE Present on Admission: No VTE Mechan Device Prophylaxis: SCD's VTE Pharm Prophylaxis ordered?: No Addendum Addendum: Surgery Charges CPT - 14816 ICD-10 - C44.311, S01.20xA, C44.01, E11.9, R73.09, Z80.8, Z87.891 14735 C44.01, S01.501A, C44.311, E11.9, R73.09, Z80.8, Z87.891 [id number] L57.0, C44.311, C44.01, E11.9, R73.09, Z80.8, Z87.891 [id number] L57.0, C44.311, C44.01, E11.9, R73.09, Z80.8, Z87.891
--- NOTE | 2021-03-30 11:30 | DCINST_ITS ---
Discharge Instructions Diet Discharge Diet: Carb Control Diet and - (encourage nutritional supplementation with protein to help the healing process.) Activity Discharge Activity: May Not Drive, May Shower (from the neck down.) and - (keep head elevated. no heavy lifting.) May shower in (days): 1 (from neck down. may wash face gently in the sink.) May resume sexual activity in: 10-14 days Weight Bearing Status: Weight bearing as tolerated Lifting Restrictions: 10 lbs. Keep extremity elevated above heart level: - (elevate head.) Dressing / Incision Call your doctor if your incision/area has: Continuous Slow Oozing, Sudden Increased Bleeding, Increased Pain/ Swelling, Increased Redness, Foul Smelling Discharge and Swelling at the incision site Call your doctor if you observe: Fever of 101 or Higher, Coldness, Increased Pain, Shortness of breath, Chest pain, Calf discomfort and Uncontrolled pain Suture Line Care: - (after operative dressing removed, will begin silver dressing changes daily. may apply antibiotic ointment to nasal dorsum wounds da keith.) Change Dressing in: do not change dressing (will change the operative dressing in the office.) Cleanse incision/area with: Soap & Water (at the time of the dressing change, may cleanse the wound with soap and water.) Follow Up Care Please Follow Up With: Dev Del Real MD When: friday04/02/21 call [phone] for appt. Test Results: Test results from this visit will be discussed in further detail at your follow-up appointment, if applicable. Discharge Plan Admission Primary Reason for Your Visit: excision basal cell carcinoma left nostril Attending Provider: Dev Del Real Primary Care Provider: Faraz Merritt Chi Discharge Orders/Prescriptions Prescriptions: New clindamycin HCl [Cleocin HCl] 300 mg capsule 300 mg PO TID Qty: 30 RF: 1 L.acidoph,saliva-B.bif-S.therm [Acidophilus Probiotic Blend] 175 mg capsule 1 cap PO DAILY Qty: 30 RF: 0 oxycodone-acetaminophen [Percocet] 5-325 mg tablet 1 tab PO Q4H PRN (Reason: pain (scale score 7-10)) 7 Days Qty: 40 RF: 0 Continued metformin 500 MG tablet 500 mg PO BID RF: 0 diltiazem HCl 240 MG capsule,extended release 24hr 240 mg PO DAILY RF: 0 simvastatin 80 MG tablet 80 mg PO QHS RF: 0 potassium chloride [Klor-Con M20] 20 MEQ tablet,ER particles/crystals 20 meq PO BID RF: 0 hydrochlorothiazide 25 MG tablet 25 mg PO DAILY RF: 0 diazepam 10 MG tablet 10 mg PO DAILY RF: 0 garlic Capsule 2,000 mg PO DAILY RF: 0 omega-3 fatty acids Capsule 1,000 mg PO DAILY RF: 0 vitamin R18-gdzkulsmt factor 110-0.5 mg Capsule 1 cap PO DAILY RF: 0 cholecalciferol (vitamin D3) [Vitamin D3] 50 mcg (2,000 unit) Capsule 50 mcg PO DAILY RF: 0 Held aspirin [Adult Low Dose Aspirin] 81 mg tablet,delayed release (DR/EC) 81 mg PO DAILY RF: 0 Hold Instructions: Resume on 04/14/21. Referrals / Follow Up: Faraz Merritt Chi, MD [Primary Care Provider] - Disposition Disposition (needs filled in before D/C Order can be placed): Home, Self Care
== END 2021-03-30 13:24 | disposition home or self-care (01) ==
LOC: SDC 05:33 → AC 05:33
PROVIDERS: PCP Family Medicine Geriatric Medicine; Referring Provider Surgery; Visit Provider Surgery
PROC: (CPT 11312; principal; 2021-03-30 08:20)
DX: C44.311 Basal cell carcinoma of skin of nose (principal); C44.01 Basal cell carcinoma of skin of lip; L57.0 Actinic keratosis; F41.9 Anxiety disorder, unspecified; E78.00 Pure hypercholesterolemia, unspecified; E11.9 Type 2 diabetes mellitus without complications; Z79.84 Long term (current) use of oral hypoglycemic drugs; Z80.1 Family history of malignant neoplasm of trachea, bronchus and lung; Z80.8 Family history of malignant neoplasm of other organs or systems; Z82.3 Family history of stroke; Z82.49 Family history of ischemic heart disease and other diseases of the circulatory system; Z87.891 Personal history of nicotine dependence; Z87.440 Personal history of urinary (tract) infections; Z88.2 Allergy status to sulfonamides; Z88.1 Allergy status to other antibiotic agents; Z82.61 Family history of arthritis; Z88.5 Allergy status to narcotic agent; Z83.3 Family history of diabetes mellitus; Z79.82 Long term (current) use of aspirin
CPT/HCPCS: 00160; 11312; 15004; 30150; 82962; 88305; 88331; J7120; J2405

== ENCOUNTER 2021-04-09 08:16 | Day surgery (SDC) | payer MEDICARE, SELFPAY ==
--- NOTE | 2021-04-08 23:26 | PCM.HP.BLA ---
History and Physical Date of Admission: 04/09/21 Date of Admission: 03/30/21 HISTORY OF PRESENT ILLNESS 75 YEAR OLD WOMAN PRESENTS FOR EVALUATION FOR TBSE. SHE HAS CONCERNS ABOUT A LESION LOCATED AT THE BASE OF HER LEFT NOSTRIL INVOLVING THE EXTERNAL VESTIBULE AND EXTENDING ONTO THE NASAL FLOOR OF THE NASAL CAVITY. THERE IS ALSO EXTENSION INFERIORLY ONTO THE SKIN OF THE UPPER LIP. SHE ALSO COMPLAINS OF TWO LESIONS ON HER NASAL DORSUM THAT ARE TANNISH IN COLOR AND SCABBY. SHE DENIES FEVER. SHE DENIES TRAUMA. SHE DENIES RECENT INFECTION. SHE PRESENTS AT THIS TIME FOR FURTHER EVALUATION AND TREATMENT. PAST MEDICAL HISTORY Actinic keratosis Anxiety Bone fracture Carpal tunnel syndrome of right wrist Cataracts, bilateral Diabetes type 2, controlled Family history of skin cancer Former smoker Hemoglobin A1c less than 7.0% High blood pressure High cholesterol Neoplasm of unspecified behavior of bone, soft tissue, and skin UTI (urinary tract infection) PAST SURGICAL HISTORY History of carpal tunnel release History of left knee surgery ALLERGIES Cephalosporins pneumococcal vaccine tetracycline codeine Sulfa (Sulfonamide Antibiotics) MEDICATIONS diazepam diltiazem HCl hydrochlorothiazide metformin potassium chloride [Klor-Con M20] simvastatin aspirin FAMILY HISTORY Daughter - Alcoholism, Alcoholic cirrhosis of liver, Skin cancer Father - Angina at rest, Hypertension Son - Anxiety, Diabetes, Hypertension, Skin cancer Grandmother - Arthritis Mother - Diabetes Grandmother - CVA (cerebral vascular accident) Brother - Cancer, Diabetes Sister - Heart disease Brother - Lung cancer Other - Family history of skin cancer SOCIAL HISTORY Smoking Status: Former smoker second hand exposure: Yes alcohol intake: never substance use type: does not use REVIEW OF SYSTEMS General - Denies fever, fatigue, and weight loss. Eyes - Has cataracts. Denies glaucoma. ENT - Denies nasal congestion and sore throat. Endocrine - Denies excessive thirst and urination. Skin - Denies skin cancer. DOES HAVE FAMILY HISTORY OF SKIN CANCER. HAS ENLARGING LESION LEFT NOSE INVOLVING THE EXTERNAL VESTIBULE AND EXTENDING ONTO THE NASAL FLOOR OF THE NASAL CAVITY AND ONTO THE SKIN OF THE UPPER LIP. ALSO HAS ENLARGING SCABBY LESIONS X2 NASAL DORSUM. Musculoskeletal - Denies joint pain, weakness of muscles and joints, back pain, and arthritis. Has joint stiffness. Neuro - Denies headaches. Cardiovascular - Denies chest pain, fatigue, and shortness of breath with exertion. Psych - Denies anxiety and depression. Respiratory - Denies chronic cough and shortness of breath. PATIENT IS A FORMER SMOKER. Gastrointestinal - Denies nausea, vomiting, diarrhea, and constipation. Hematologic - Denies abnormal bruising and bleeding. Genitourinary - Denies hematuria and urinary frequency. PHYSICAL EXAMINATION General - Alert and Oriented HEENT - PERRL. EOMI. Throat is clear. THERE IS A LESION LOCATED AT THE BASE OF HER LEFT NOSTRIL INVOLVING THE EXTERNAL VESTIBULE AND EXTENDING ONTO THE NASAL FLOOR OF THE NASAL CAVITY. THERE IS ALSO EXTENSION INFERIORLY ONTO THE SKIN OF THE UPPER LIP. MEASURES 2 X 1.2 CM. CLINICALLY CONSISTENT WITH A BASAL CELL CARCINOMA. IT IS NODULAR AND RAISED IN CONFIGURATION. HAS IRREGULAR BORDERS. NO ULCERATION. IT EXTENDS INFERIORLY ONTO THE SKIN OF THE UPPER LIP CLOSE TO THE LEFT PHILTRAL COLUMN. The external nasal vestibular opening on the right measures 1 cm and on the left measures 2 cm. The growth of the tumor has distorted the left nasal ala ON THE NASAL DORSUM, SUPERIOR, IS A TANNISH SCABBY LESION THAT MEASURES 7 MM. HAS IRREGULAR BORDERS. NO ULCERATION. LESION IS NONTENDER. LOOKS ACTINIC IN NATURE. ON THE NASAL DORSUM, INFERIOR, IS A TANNISH SCABBY LESION THAT MEASURES 7 MM. HAS IRREGULAR BORDERS. NO ULCERATION. LESION IS NONTENDER. LOOKS ACTINIC IN NATURE. No other suspicious lesions noted. Neck - Supple and nontender. No cervical adenopathy. No suspicious lesions noted. Lungs - Clear to auscultation. Heart - Regular rate and rhythm. Abdomen - Soft and nondistended. Extremities - FROM. No axillary adenopathy. Radial pulses are palpable. No suspicious lesions noted. Neuro - CN II-XII grossly intact. Psych - Normal mood and affect. ASSESSMENT 1. 2 CM LESION BASE OF LEFT NOSTRIL INVOLVING THE EXTERNAL VESTIBULE AND EXTENDING ONTO THE NASAL FLOOR OF THE NASAL CAVITY AND EXTENDING INFERIORLY ONTO THE SKIN OF THE UPPER LIP. 2. 7 MM ACTINIC LESION NASAL DORSUM, SUPERIOR. 3. 7 MM ACTINIC LESION NASAL DORSUM, INFERIOR. 4. FAMILY HISTORY OF SKIN CANCER. 5. DIABETES MELLITUS. 6. HGBA1C 5.7. 7. FORMER SMOKER. PLAN PATIENT HAS A LESION BASE OF LEFT NOSTRIL INVOLVING THE EXTERNAL VESTIBULE AND EXTENDING ONTO THE NASAL FLOOR OF THE NASAL CAVITY AND EXTENDING INFERIORLY ONTO THE SKIN OF THE UPPER LIP. EXCISION OF THIS LESION WILL INVOLVE MULTIPLE AESTHETIC SUBUNITS OF THE NOSE AND UPPER LIP. FIRST STEP IS TO ESTABLISH A DIAGNOSIS. THE LESION IS CLINICALLY CONSISTENT WITH A BASAL CELL CARCINOMA. WILL DO A FROZEN SECTION INITIALLY. ONCE BASAL CELL CARCINOMA IS CONFIRMED THE LESION NEEDS TO BE EXCISED WHICH WILL INVOLVE THE LATERAL NASAL ALA AND COLUMELLA A PARTIAL RHINECTOMY. SHE WILL NEED COMPLEX NASAL RECONSTRUCTION WITH A 2 STAGE FOREHEAD FLAP TO PROVIDE SOFT TISSUE COVERAGE, CARTILAGE GRAFTING FOR SUPPORT, AND NASAL LINING FLAPS OR SKIN GRAFTING FOR THE INNER MUCOSAL LINING. IN 3 WEEKS PATIENT WILL RETURN TO THE OPERATING ROOM FOR THE SECOND STAGE WHICH IS DIVISION AND INSET FOREHEAD FLAP TO THE NOSE. ALSO AT THE TIME OF THE FOREHEAD FLAP THERE WILL BE A WOUND INVOLVING THE SKIN OF THE UPPER LIP. PERIALAR CRESCENTERIC ADVANCEMENT SKIN FLAPS WOULD BE NECESSARY. BILATERAL FLAPS MAY BE NECESSARY. OTHER OPTION WOULD BE JUST TO SKIN GRAFT THE UPPER LIP DEFECT INITIALLY. AFTER THE COMPLEX NASAL RECONSTRUCTION IS COMPLETED AND HEALED, CAN RE-EVALUATE THE UPPER LIP IN 9-12 MONTHS FOR A SURGICAL EXCISION OF THE SKIN GRAFT AND THEN PROCEED WITH THE PERIALAR CRESCENTERIC ADVANCEMENT FLAPS. DEPENDING ON THE UPPER LIP DEFECT WHICH MAY EXTEND CENTRALLY, THE CENTRAL DEFECT MAY NEED AN ADDITIONAL RUDY CROSS LIP FLAP. I DON'T WANT TO DO THE FOREHEAD FLAP AND THESE MULTIPLE LIP FLAPS AT THE SAME TIME. ALSO AT THE TIME OF THE INITIAL PARTIAL RHINECTOMY, I WOULD BIOPSY THE LESIONS ON THE NASAL DORSUM A SHAVE EXCISION. IF ACTINIC, I SUSPECT, THEN CAN PROCEED WITH ALDARA CREAM THERAPY. IT IS APPLIED DAILY AT NIGHT 5 DAYS PER WEEK FOR 6 WEEKS. THEN RE-EVALUATE IN TWO MONTHS. OTHER OPTION IS IF IT'S ACTINIC, PROCEED WITH SURGICAL EXCISION. IF THE BIOPSIES SHOW CARCINOMA THEN PROCEED WITH SURGICAL EXCISION. THE WOUNDS CAN EITHER BE SKIN GRAFTED OR BE INCORPORATED INTO THE FOREHEAD FLAP. THESE SURGERIES WOULD BE DONE UNDER GENERAL ANESTHESIA. THE FORMATION OF THE FOREHEAD FLAP WOULD REQUIRE A SURGICAL OBSERVATION OVERNIGHT STAY IN THE HOSPITAL. THE OTHERS CAN PROBABLY BE DONE AN OUTPATIENT. THE FOREHEAD WILL NEED TO EXTEND ALL THE WAY TO THE BASE OF THE COLUMELLA AND LATERAL NASAL ALA. SO THE FLAP WOULD EXTEND INTO THE SCALP TO PROVIDE ENOUGH LENGTH TO ROTATE THE FLAP. THE TIP OF THE FLAP MAY HAVE RESIDUAL HAIR GROWTH THAT CAN BE ADDRESSED IN THE FUTURE WITH LASER HAIR REMOVAL. AN ADDITIONAL FLAP THAT CAN BE USED IF NECESSARY TO HELP CLOSE THIS COMPLEX CARCINOMA DEFECT IS THE NASOLABIAL FLAP WHICH IS ALSO A TWO STAGE FLAP THAT INVOLVES A DIVISION AND INSET IN 3 WEEKS. CARTILAGE GRAFTS CAN COME FROM THE NASAL DORSUM, THE EARS, AND IF NECESSARY FROM THE RIB. Patient was informed of the risks and complications of the procedure including alternatives to surgery. These were discussed with the patient personally. Patient voices understanding and wishes to proceed. Some of the risks and complications were included in a form from the [place] [employer]. PATIENT HAS DIABETES MELLITUS. THE HGBA1C IS NOT GOING TO MATTER WHEN EXCISING THE CARCINOMA. HOWEVER, RECONSTRUCTING THE DEFECT IS ELECTIVE AND THE HGB A1C NEEDS TO BE LESS THAN 8. AT PRESENT, THE PATIENT HAD A HGBA1C DONE WHICH WAS 5.7 ON 12/27/20. We discussed the current risks associated with COVID-19. While it is understood that there is a community spread of COVID-19, the risk of candy COVID-19 while at [facility] ([facility]) is very low; however, the risk cannot be completely mitigated because of the community spread of the disease. We discussed in detail the risk of exposure to and/or potential harm posed by the COVID-19 virus with having a surgery/procedure at this time versus the risk of delaying the surgery/procedure. It is not possible to know either the risk of delaying the surgery or procedure or chance of getting an infection with perfect accuracy, but a joint decision was made to proceed at this time with the scheduled surgery/procedure as indicated on the consent form. Patient was notified that we will need to comply with any screening or testing [facility] wishes to perform or that surgery may be delayed for any positive results. Procedure Criteria Procedure Type: Elective COVID Risk Discussion: The surgeon/proceduralist and patient have discussed in detail the risk of exposure to and/or potential harm posed by the COVID-19 virus with having a surgery/procedure at this time versus the risk of delaying the surgery/procedure. It is not possible to know either the risk of delaying the surgery or procedure or chance of getting an infection with perfect accuracy, but a joint decision was made between the patient and the surgeon/proceduralist to proceed at this time with the scheduled surgery/procedure as indicated on the consent form.
[2021-04-09 08:46] VITALS: BP 149/62; PULSE 55; RESP 20; TEMP 35.9; O2SAT 98; BMI 28.8
[2021-04-09] MEDS: Lactated Ringers 1,000 ML 15 ML IV (09:00)
[2021-04-09 09:41] LABS: Bedside Glucose 102 mg/dL (70-110)
--- NOTE | 2021-04-09 10:15 | LES_PTH ---
PATIENT: JOLYNN WALTON LOC: [facility] [place] U#:[id number] AGE/SX: 75/F ROOM: RE04/09/[address]: Dr. Dev Del Real MD : [id number] BED: DIS: 04/09/2021 SPEC #: [id number] RECD: 04/09/21 13:18 STATUS: STEFF REDany #: [id number] ERIC: 04/09/21 10:[address]: Dev Del Real DEPT: SURGICAL PATHOLOGY RECD BY: Stephany Meyers ENTERED: 04/09/21 13:38 SP TYPE: Lesion OTHR DR: Dr. Faraz Merritt MD Tissues: Skin of nose, NOS Procedures: Surgery Specimen Level IV HEADER OPERATION: Excision lesion basal cell CA nose and upper lip PRE-OP DIAGNOSIS: Lesion base of left nostril involving the external vestibule TISSUE SUBMITTED: Base of left nostril with extension to upper lip MICROSCOPIC DIAGNOSIS Base of left nostril with extension to upper lip lesion, excisional biopsy: A piece of skin with underlying tissue with extensive granulation tissue reaction and foreign body giant cell reaction. Negative for carcinoma. SJ:jackeline 04/10/2021 COMMENT Please make reference to previous specimen ([id number]) skin lesion at base of left nostril with diagnosis of ?basal cell carcinoma? and skin lesion at base of left nostril, excisional biopsy with diagnosis of ?basal cell carcinoma.? MICROSCOPIC DESCRIPTION Slides are reviewed. GROSS DESCRIPTION Received in fixative is one container labeled with the patient's name and designated base of left nostril with extension to upper lip. The specimen consists of a piece of skin with underlying tissue measuring 2.2 x 0.2 cm and up to 1 cm in thickness. The specimen is oriented by a drawing by surgeon as follows: blue suture - outer margin, black suture - inner margin. The specimen is inked as follows: area identified by blue suture - black, inner margin area identified by black suture - blue, and rest of the specimen - green. The specimen is serially sectioned and submitted entirely in one cassette. / Johnathan 04/09/21 TC:5 CPT: 14296
[2021-04-09] MEDS: Mupirocin Ointment 22gm Tube 1 APPLIC (10:29)
[2021-04-09] MEDS: Lactated Ringers 1,000 ML 30 ML IV (11:00)
[2021-04-09] MEDS: Lidocaine 1% /Epi 1:100 (50ml) 50 ML VIAL (11:21)
--- NOTE | 2021-04-09 11:36 | PCM.OPRPT ---
Problems Associated Problem List Diagnoses (1) Basal cell carcinoma (BCC) of left side of nose: (2) Basal cell carcinoma of skin of left upper lip: (3) Open wound of nasal cavity with complication: (4) Open wound of lip, complicated: (5) Actinic keratosis: (6) Family history of skin cancer: (7) Diabetes type 2, controlled: (8) Hemoglobin A1c less than 7.0%: (9) Former smoker: Report of Operation Date of Procedure: 04/09/21 Pre-Operative Diagnosis: 1. 3 cm basal cell carcinoma wound base of left nostril involving the external vestibule and extending onto the nasal floor of the nasal cavity, lateral nasal alar rim laterally, base of columella medially, and skin of upper lip and philtrum inferiorly, with positive margin medially at the 9 oclock margin involving the columella and the philtrum. 2. 3 cm basal cell carcinoma wound skin of upper lip and philtrum, with positive margin medially at the 9 oclock margin involving the columella and the philtrum. 3. Actinic keratosis. 4. Family history of skin cancer. 5. Diabetes mellitus. 6. HgbA1c 5.7. 7. Former smoker. Post-Operative Diagnosis: 1. 3.5 cm basal cell carcinoma wound base of left nostril involving the external vestibule and extending onto the nasal floor of the nasal cavity, lateral nasal alar rim laterally, base of columella medially, and skin of upper lip and philtrum inferiorly, with positive margin medially at the 9 oclock margin involving the columella and the philtrum. 2. 3.5 cm basal cell carcinoma wound skin of upper lip and philtrum, with positive margin medially at the 9 oclock margin involving the columella and the philtrum. 3. Actinic keratosis. 4. Family history of skin cancer. 5. Diabetes mellitus. 6. HgbA1c 5.7. 7. Former smoker. Surgery/Procedure Performed:: Surgical preparation 3.5 cm basal cell carcinoma wound base of left nostril involving the external vestibule and extending onto the nasal floor of the nasal cavity, lateral nasal alar rim laterally, base of columella medially, and skin of upper lip and philtrum inferiorly, with re-excision positive margin medially at the 9 oclock margin involving the columella and the philtrum. Description of Surgical Findings:: 75 YEAR OLD WOMAN PRESENTS FOR EVALUATION FOR TBSE. SHE HAS CONCERNS ABOUT A LESION LOCATED AT THE BASE OF HER LEFT NOSTRIL INVOLVING THE EXTERNAL VESTIBULE AND EXTENDING ONTO THE NASAL FLOOR OF THE NASAL CAVITY. THERE IS ALSO EXTENSION INFERIORLY ONTO THE SKIN OF THE UPPER LIP. SHE ALSO COMPLAINS OF TWO LESIONS ON HER NASAL DORSUM THAT ARE TANNISH IN COLOR AND SCABBY. SHE DENIES FEVER. SHE DENIES TRAUMA. SHE DENIES RECENT INFECTION. She went to surgery on 03/30/21 where she underwent surgical preparation left upper lip and philtrum with excision basal cell carcinoma from base of left nostril and excision 2 CM basal cell carcinoma BASE OF LEFT NOSTRIL INVOLVING THE EXTERNAL VESTIBULE AND EXTENDING ONTO THE NASAL FLOOR OF THE NASAL CAVITY, lateral nasal alar rim laterally, base of columella medially with partial rhinectomy and intradermal excision 7 MM ACTINIC LESION NASAL DORSUM, SUPERIOR, with possible small focus of basal cell carcinoma and intradermal excision 7 MM ACTINIC LESION NASAL DORSUM, INFERIOR. Pathology showed a basal cell carcinoma with positive margin at the 9 oclock position which is area involving the columella and philtrum. Further re-excision of her basal cell carcinoma wound involving the columella and philtrum is recommended. I don't want to start the complex nasal reconstruction until the margins are free of basal cell carcinoma. Patient was informed of the risks and complications of the procedure including alternatives to surgery. These were discussed with the patient personally. Patient voices understanding and wishes to proceed. Some of the risks and complications were included in a form from the [place] [employer]. Surgeon: Dev Del Real railroader: None Type of Anesthesia: Local MAC (xylocaine with epinephrine and IV sedation.) Specimen's removed: Basal cell carcinoma wound base of left nostril involving the external vestibule and extending onto the nasal floor of the nasal cavity, lateral nasal alar rim laterally, base of columella medially, and skin of upper lip and philtrum inferiorly, with re-excision positive margin medially at the 9 oclock margin involving the columella and the philtrum to Pathology. Drains: None. Estimated Blood Loss (mL): 5 ml. Description of Procedure: Patient was taken to OR in supine position and was given IV sedation. The face was prepped and draped in the usual fashion. SCD's were placed for DVT prophylaxis. Perioperative antibiotics were given intravenously. The basal cell carcinoma wound on the medial aspect of the wound involving the columella and philtrum was infiltrated with xylocaine and epinephrine. After waiting 5 minutes for the anesthetic to take effect, I re-excised the medial aspect of the wound involving the columella and philtrum with a crescenteric excision to include deeper tissue down to the muscle of the philtrum portion and down to the cartilage of the columella. No septal cartilage was exposed. I re-excised this area with a 5 mm margin. A blue suture was placed on the outer portion of the specimen and a black suture was placed on the inner portion of the specimen for Pathology orientation. This additional margin was sent to Pathology for analysis to rule out carcinoma at the margin. This increased the basal cell carcinoma wound to 3.5 x 3 cm. Preoperatively the wound was stable with good granulation tissue and there has been some wound contraction as the wound was 4 x 4 cm after the first surgery, and it has decreased down to 3 x 3 cm at the time of the present surgery. Hemostasis was obtained with electrocautery. I dressed the wound with a Silver dressing and 2 x 2 gauze and secured to the skin edge with 4-0 Nylon tie over stent suture dressing. Patient tolerated the procedure well and was sent to PACU in satisfactory condition. Patient will be sent home on antibiotics and pain medication. She will keep her head elevated during the postoperative period and maintain a lifting restriction. Patient will followup in a couple of days for removal of the operative dressing and for a wound check and for discussion of the pathology report when it becomes available. Grafts/Implants Used: None. Complications None. Admit VTE Documentation VTE Present on Admission: No VTE Mechan Device Prophylaxis: SCD's VTE Pharm Prophylaxis ordered?: No Addendum Addendum: Surgery Charges CPT - 06403-94 ICD-10 - C44.311, C44.01, S01.20xA, S01.501A, L57.0, Z80.8, E11.9, R73.09, Z87.891
[2021-04-09 11:38] VITALS: BP 105/53; BP 149/62; PULSE 77; RESP 18; TEMP 36.4; O2SAT 93
[2021-04-09 11:45] VITALS: BP 126/42; BP 149/62; PULSE 59; RESP 16; O2SAT 93
[2021-04-09 11:50] VITALS: BP 127/53; BP 149/62; PULSE 59; RESP 16; O2SAT 92
[2021-04-09 11:55] VITALS: BP 113/50; BP 149/62; PULSE 59; RESP 16; TEMP 36.1; O2SAT 92
--- NOTE | 2021-04-09 12:12 | PCM.DC ---
Discharge Instructions Diet Discharge Diet: Carb Control Diet (encourage nutritional supplementation with protein to help the healing process.) Activity Discharge Activity: May Not Drive, May Shower (after operative dressing is removed in the office on 04/11/21.) and - (keep head elevated. no heavy lifting.) May shower in (days): 2 (after operative dressing is removed on friday04/11/21.) May resume sexual activity in: 10-14 days Weight Bearing Status: Weight bearing as tolerated Lifting Restrictions: 10 lbs. Keep extremity elevated above heart level: - (elevate head.) Dressing / Incision Call your doctor if your incision/area has: Continuous Slow Oozing, Sudden Increased Bleeding, Increased Pain/ Swelling, Increased Redness, Foul Smelling Discharge and Swelling at the incision site Call your doctor if you observe: Fever of 101 or Higher, Coldness, Increased Pain, Shortness of breath, Chest pain, Calf discomfort and Uncontrolled pain Suture Line Care: - (after operative dressing is removed on friday04/11/21, continue Silver dressing changes daily. continue antibiotic ointment to nasal dorsum wounds daily.) Change Dressing in: do not change dressing (will change the operative dressing in the office on friday04/11/21.) Cleanse incision/area with: Soap & Water (at the time of the dressing change, may cleanse the wound with soap and water.) Follow Up Care Please Follow Up With: Dev Del Real MD When: friday. call [phone] for appt. Test Results: Test results from this visit will be discussed in further detail at your follow-up appointment, if applicable. Discharge Plan Admission Primary Reason for Your Visit: re-excision basal cell carcinoma base left nostril and upper lip. Attending Provider: Dev Del Real Primary Care Provider: Faraz Merritt Chi Discharge Orders/Prescriptions Prescriptions: New clindamycin HCl [Cleocin HCl] 300 mg capsule 300 mg PO TID Qty: 30 RF: 1 L.acidoph,saliva-B.bif-S.therm [Acidophilus Probiotic Blend] 175 mg capsule 1 cap PO DAILY Qty: 30 RF: 0 Continued metformin 500 MG tablet 500 mg PO BID RF: 0 diltiazem HCl 240 MG capsule,extended release 24hr 240 mg PO DAILY RF: 0 simvastatin 80 MG tablet 80 mg PO QHS RF: 0 potassium chloride [Klor-Con M20] 20 MEQ tablet,ER particles/crystals 20 meq PO BID RF: 0 hydrochlorothiazide 25 MG tablet 25 mg PO DAILY RF: 0 diazepam 10 MG tablet 10 mg PO DAILY RF: 0 garlic Capsule 2,000 mg PO DAILY RF: 0 omega-3 fatty acids Capsule 1,000 mg PO DAILY RF: 0 vitamin R07-[id number] factor 110-0.5 mg Capsule 1 cap PO DAILY RF: 0 cholecalciferol (vitamin D3) [Vitamin D3] 50 mcg (2,000 unit) Capsule 50 mcg PO DAILY RF: 0 clindamycin HCl [Cleocin HCl] 300 mg capsule 300 mg PO TID Qty: 30 RF: 1 oxycodone-acetaminophen [Percocet] 5-325 mg tablet 1 tab PO Q4H PRN (Reason: pain (scale score 7-10)) 7 Days Qty: 40 RF: 0 L.acidoph,saliva-B.bif-S.therm [Acidophilus Probiotic Blend] 175 mg capsule 1 cap PO DAILY Qty: 30 RF: 0 Held aspirin [Adult Low Dose Aspirin] 81 mg tablet,delayed release (DR/EC) 81 mg PO DAILY RF: 0 Hold Instructions: Resume on 05/07/21. tentative date. Referrals / Follow Up: Faraz Merritt Chi, MD [Primary Care Provider] - Disposition Disposition (needs filled in before D/C Order can be placed): Home, Self Care
[2021-04-09 12:45] VITALS: BP 137/45; BP 149/62; PULSE 57; RESP 20; TEMP 36.2; O2SAT 94
--- NOTE | 2021-04-09 13:19 | SUR.PHASEII ---
Dr. Del Real said that patient should use the bactroban ointment on the two skin cancer areas, so we are sending some more home with her.
== END 2021-04-09 13:25 | disposition home or self-care (01) ==
LOC: SDC 08:17 → AC 08:19
PROVIDERS: PCP Family Medicine Geriatric Medicine; Referring Provider Surgery; Visit Provider Surgery
PROC: (CPT 15004; principal; 2021-04-09 10:05)
DX: C44.311 Basal cell carcinoma of skin of nose (principal); C44.01 Basal cell carcinoma of skin of lip; S01.20XA Unspecified open wound of nose, initial encounter; S01.501A Unspecified open wound of lip, initial encounter; L57.0 Actinic keratosis; E11.9 Type 2 diabetes mellitus without complications; Z80.8 Family history of malignant neoplasm of other organs or systems; Z87.891 Personal history of nicotine dependence; E78.00 Pure hypercholesterolemia, unspecified; Z79.82 Long term (current) use of aspirin; Z79.84 Long term (current) use of oral hypoglycemic drugs; Z80.1 Family history of malignant neoplasm of trachea, bronchus and lung; Z82.3 Family history of stroke; Z82.49 Family history of ischemic heart disease and other diseases of the circulatory system; Z82.61 Family history of arthritis; Z83.3 Family history of diabetes mellitus; Z87.440 Personal history of urinary (tract) infections; Z88.1 Allergy status to other antibiotic agents; Z88.5 Allergy status to narcotic agent; Z88.2 Allergy status to sulfonamides
CPT/HCPCS: 00300; 15004; 82962; 88305; J7120

== ENCOUNTER 2021-06-27 11:22 | Outpatient (CLI) | payer MEDICARE, SELFPAY ==
[2021-06-27 12:15] LABS: Absolute Lymphocyte Count 1.52 X10^3/uL (0.83-4.51); Absolute Neutrophil Count 1.9 X10^3/uL (2.0-7.7); Basophil# 0.01 X10^3/uL; Basophil% 0.3 % (0-1); Eosinophil# 0.12 X10^3/uL; Eosinophils% 3.1 % (0-5); Hematocrit 38.7 % (37-47); Hemoglobin 13.1 g/dL (12.0-15.0); Lymphocyte # 1.52 X10^3/ul (0.83-4.51); Lymphocyte % 38.7 % (19-41); Mean Corp Hgb Conc 33.9 g/dL (32-36); Mean Corpuscular Hgb 29.9 pg (27.0-32.0); Mean Corpuscular Volume 88.4 fL (81-99); Mean Platelet Vol. 10.1 fl (6.2-12.0); Monocyte# 0.38 X10^3/uL; Monocyte% 9.7 % (0-10); NRBC Flagged by Analyzer 0 % (0-5); Neutrophil # 1.89 X10^3/uL (2.7-7.7); Neutrophil % 47.9 % (47-70); Platelet Count 339 K/mm3 (150-450); RBC Distribution Width CV 13.3 % (11.6-14.6); RBC Distribution Width SD 43.3 fl (35.1-43.9); Red Blood Count 4.38 M/mm3 (4.2-5.4); White Blood Count 3.9 K/mm3 (4.4-11.0)
[2021-06-27 12:31] LABS: Vitamin D,25 Hydroxy 42.2 ng/mL
[2021-06-27 12:43] LABS: AST(SGOT) 18 U/L (15-37); Alanine Aminotransfer ALT/SGPT 22 U/L (13-56); Albumin, Serum 3.8 g/dL (3.2-5.0); Alkaline Phosphatase 142 U/L (45-117); Anion Gap 5 (5-15); BUN 17 mg/dL (7-18); BUN/Creat Ratio 20.8 RATIO (10-20); Calcium,Total 9.8 mg/dL (8.5-10.1); Chloride 103 mmol/L (98-107); Creatinine, Serum 0.82 mg/dL (0.55-1.02); EST Glomerular Filtration Rate 72 mL/min (>60); Est Glom Filt Rate - Afr Amer 87 mL/min (>60); Globulin 3.7 g/dL (2.2-4.2); Glucose 123 mg/dL (74-106); Potassium 3.5 mmol/L (3.5-5.1); Protein, Total 7.5 g/dL (6.4-8.2); Sodium Level 139 mmol/L (136-145); Thyroid Stim Hormone (TSH) 2.57 uIU/mL (0.358-3.74)
== END 2021-06-27 23:59 | disposition home or self-care (01) ==
LOC: POLAB3 11:23
PROVIDERS: PCP Family Medicine Geriatric Medicine; Visit Provider Family Medicine Geriatric Medicine
DX: E11.9 Type 2 diabetes mellitus without complications (principal); E55.9 Vitamin D deficiency, unspecified; I10 Essential (primary) hypertension
CPT/HCPCS: 36415; 80053; 82306; 84443; 85025

== ENCOUNTER → 2022-02-06 | Outpatient (CLI) | payer MEDICARE, SELFPAY ==
[2022-02-06 12:46] LABS: Absolute Lymphocyte Count 2.77 X10^3/uL (0.83-4.51); Absolute Neutrophil Count 2.2 X10^3/uL (2.0-7.7); Basophil# 0.04 X10^3/uL; Basophil% 0.7 % (0-1); Eosinophil# 0.31 X10^3/uL; Eosinophils% 5.3 % (0-5); Hematocrit 37.4 % (37-47); Hemoglobin 12.1 g/dL (12.0-15.0); Lymphocyte # 2.77 X10^3/ul (0.83-4.51); Lymphocyte % 47.3 % (19-41); Mean Corp Hgb Conc 32.4 g/dL (32-36); Mean Corpuscular Volume 89.7 fL (81-99); Monocyte# 0.51 X10^3/uL; Monocyte% 8.7 % (0-10); NRBC Flagged by Analyzer 0 % (0-5); Neutrophil # 2.22 X10^3/uL (2.7-7.7); Neutrophil % 37.8 % (47-70); Platelet Count 362 K/mm3 (150-450); RBC Distribution Width CV 14.2 % (11.6-14.6); RBC Distribution Width SD 46.5 fl (35.1-43.9); Red Blood Count 4.17 M/mm3 (4.2-5.4); White Blood Count 5.9 K/mm3 (4.4-11.0)
[2022-02-06 13:41] LABS: ALB/GLOB Ratio 1.1 RATIO (0.9-2.4); AST(SGOT) 16 U/L (15-37); Alanine Aminotransfer ALT/SGPT 17 U/L (13-56); Albumin, Serum 3.6 g/dL (3.2-5.0); Alkaline Phosphatase 93 U/L (45-117); Anion Gap 6 (5-15); BUN 23 mg/dL (7-18); BUN/Creat Ratio 26.9 RATIO (10-20); Chloride 109 mmol/L (98-107); Creatinine, Serum 0.86 mg/dL (0.55-1.02); EST Glomerular Filtration Rate 68 mL/min (>60); Est Glom Filt Rate - Afr Amer 83 mL/min (>60); Globulin 3.3 g/dL (2.2-4.2); Glucose 119 mg/dL (74-106); Potassium 3.8 mmol/L (3.5-5.1); Protein, Total 6.9 g/dL (6.4-8.2); Sodium Level 141 mmol/L (136-145); Thyroid Stim Hormone (TSH) 1.39 uIU/mL (0.358-3.74)
== END | disposition home or self-care (01) ==
LOC: POLAB3 11:41
PROVIDERS: PCP Family Medicine Geriatric Medicine; Visit Provider Family Medicine Geriatric Medicine
DX: E11.9 Type 2 diabetes mellitus without complications (principal); E55.9 Vitamin D deficiency, unspecified; I10 Essential (primary) hypertension
CPT/HCPCS: 36415; 80053; 82306; 84443; 85025

== ENCOUNTER → 2022-03-22 | Outpatient (CLI) | payer MEDICARE, SELFPAY | END | disposition home or self-care (01) | LOC: PSN 12:10 | PROVIDERS: PCP Family Medicine Geriatric Medicine; Visit Provider Family Medicine Geriatric Medicine | DX: R68.83 Chills (without fever) (principal) | CPT/HCPCS: 87635; 87804; 87807; C9803; U0003; U0005 ==

== ENCOUNTER → 2022-08-07 | Outpatient (CLI) | payer MEDICARE, SELFPAY ==
[2022-08-07 16:22] LABS: Absolute Lymphocyte Count 2.34 X10^3/uL (0.83-4.51); Basophil# 0.04 X10^3/uL; Basophil% 0.6 % (0-1); Eosinophil# 0.45 X10^3/uL; Eosinophils% 7.1 % (0-5); Hematocrit 38.5 % (37-47); Hemoglobin 12.8 g/dL (12.0-15.0); Lymphocyte # 2.34 X10^3/ul (0.83-4.51); Lymphocyte % 36.8 % (19-41); Mean Corp Hgb Conc 33.2 g/dL (32-36); Mean Corpuscular Hgb 29.6 pg (27.0-32.0); Mean Corpuscular Volume 88.9 fL (81-99); Mean Platelet Vol. 10.3 fl (6.2-12.0); Monocyte% 7.9 % (0-10); NRBC Flagged by Analyzer 0 % (0-5); Neutrophil # 3.02 X10^3/uL (2.7-7.7); Neutrophil % 47.4 % (47-70); Platelet Count 370 K/mm3 (150-450); RBC Distribution Width CV 14.2 % (11.6-14.6); RBC Distribution Width SD 45.9 fl (35.1-43.9); Red Blood Count 4.33 M/mm3 (4.2-5.4); White Blood Count 6.4 K/mm3 (4.4-11.0)
[2022-08-07 16:31] LABS: Vitamin D,25 Hydroxy 51.7 ng/mL
[2022-08-07 16:42] LABS: ALB/GLOB Ratio 1.1 RATIO (0.9-2.4); AST(SGOT) 17 U/L (15-37); Alanine Aminotransfer ALT/SGPT 24 U/L (13-56); Alkaline Phosphatase 121 U/L (45-117); Anion Gap 3 (5-15); BUN 14 mg/dL (7-18); BUN/Creat Ratio 19.1 RATIO (10-20); Calcium,Total 9.8 mg/dL (8.5-10.1); Chloride 104 mmol/L (98-107); Creatinine, Serum 0.73 mg/dL (0.55-1.02); EST Glomerular Filtration Rate 81 mL/min (>60); Est Glom Filt Rate - Afr Amer 99 mL/min (>60); Globulin 3.5 g/dL (2.2-4.2); Glucose 89 mg/dL (74-106); Potassium 3.9 mmol/L (3.5-5.1); Protein, Total 7.5 g/dL (6.4-8.2); Sodium Level 134 mmol/L (136-145); Thyroid Stim Hormone (TSH) 2.33 uIU/mL (0.358-3.74)
== END | disposition home or self-care (01) ==
PROVIDERS: PCP Family Medicine Geriatric Medicine; Visit Provider Family Medicine Geriatric Medicine
DX: E55.9 Vitamin D deficiency, unspecified (principal); E11.65 Type 2 diabetes mellitus with hyperglycemia; I10 Essential (primary) hypertension
CPT/HCPCS: 36415; 80053; 82306; 84443; 85025

== ENCOUNTER → 2023-02-10 | Outpatient (CLI) | payer MEDICARE, SELFPAY ==
[2023-02-10 14:36] LABS: Absolute Lymphocyte Count 1.78 X10^3/uL (0.83-4.51); Basophil# 0.05 X10^3/uL; Basophil% 0.9 % (0-1); Eosinophil# 0.25 X10^3/uL; Eosinophils% 4.5 % (0-5); Lymphocyte # 1.78 X10^3/ul (0.83-4.51); Lymphocyte % 31.9 % (19-41); Mean Corp Hgb Conc 32.5 g/dL (32-36); Mean Corpuscular Hgb 29.1 pg (27.0-32.0); Mean Corpuscular Volume 89.7 fL (81-99); Mean Platelet Vol. 10.2 fl (6.2-12.0); Monocyte# 0.54 X10^3/uL; Monocyte% 9.7 % (0-10); NRBC Flagged by Analyzer 0 % (0-5); Neutrophil # 2.95 X10^3/uL (2.7-7.7); Neutrophil % 52.8 % (47-70); Platelet Count 366 K/mm3 (150-450); Red Blood Count 4.46 M/mm3 (4.2-5.4); White Blood Count 5.6 K/mm3 (4.4-11.0)
[2023-02-10 15:02] LABS: AST(SGOT) 20 U/L (15-37); Alanine Aminotransfer ALT/SGPT 22 U/L (13-56); Albumin, Serum 3.7 g/dL (3.2-5.0); Alkaline Phosphatase 119 U/L (45-117); Anion Gap 6 (5-15); BUN 13 mg/dL (7-18); BUN/Creat Ratio 17.2 RATIO (10-20); Calcium,Total 9.3 mg/dL (8.5-10.1); Chloride 103 mmol/L (98-107); Creatinine, Serum 0.76 mg/dL (0.55-1.02); EST Glomerular Filtration Rate 78 mL/min (>60); Est Glom Filt Rate - Afr Amer 95 mL/min (>60); Globulin 3.7 g/dL (2.2-4.2); Glucose 103 mg/dL (74-106); Potassium 3.5 mmol/L (3.5-5.1); Protein, Total 7.4 g/dL (6.4-8.2); Sodium Level 136 mmol/L (136-145)
== END | disposition home or self-care (01) ==
LOC: POLAB3 13:01
PROVIDERS: PCP Family Medicine Geriatric Medicine; Visit Provider Family Medicine Geriatric Medicine
DX: E11.65 Type 2 diabetes mellitus with hyperglycemia (principal); I10 Essential (primary) hypertension; E55.9 Vitamin D deficiency, unspecified
CPT/HCPCS: 36415; 80053; 82306; 84443; 85025

== ENCOUNTER → 2023-08-12 | Outpatient (CLI) | payer MEDICARE, SELFPAY ==
[2023-08-12 15:22] LABS: Absolute Lymphocyte Count 2.17 X10^3/uL (0.83-4.51); Absolute Neutrophil Count 3.8 X10^3/uL (2.0-7.7); Basophil# 0.03 X10^3/uL; Basophil% 0.4 % (0-1); Hematocrit 38.7 % (37-47); Hemoglobin 12.7 g/dL (12.0-15.0); Lymphocyte # 2.17 X10^3/ul (0.83-4.51); Lymphocyte % 32.1 % (19-41); Mean Corp Hgb Conc 32.8 g/dL (32-36); Mean Corpuscular Hgb 29.4 pg (27.0-32.0); Mean Corpuscular Volume 89.6 fL (81-99); Mean Platelet Vol. 10.1 fl (6.2-12.0); Monocyte# 0.55 X10^3/uL; Monocyte% 8.1 % (0-10); NRBC Flagged by Analyzer 0 % (0-5); Neutrophil # 3.81 X10^3/uL (2.7-7.7); Neutrophil % 56.3 % (47-70); Platelet Count 334 K/mm3 (150-450); RBC Distribution Width CV 14.4 % (11.6-14.6); RBC Distribution Width SD 46.9 fl (35.1-43.9); Red Blood Count 4.32 M/mm3 (4.2-5.4); White Blood Count 6.8 K/mm3 (4.4-11.0)
[2023-08-12 15:44] LABS: Hemoglobin A1c 5.7 % (3.8-5.6)
[2023-08-12 15:50] LABS: ALB/GLOB Ratio 1.2 RATIO (0.9-2.4); AST(SGOT) 18 U/L (15-37); Alanine Aminotransfer ALT/SGPT 21 U/L (13-56); Albumin, Serum 3.7 g/dL (3.2-5.0); Alkaline Phosphatase 105 U/L (45-117); Anion Gap 3 (5-15); BUN 23 mg/dL (7-18); Calcium,Total 9.4 mg/dL (8.5-10.1); Chloride 109 mmol/L (98-107); Cholesterol 148 mg/dL (200); Creatinine, Serum 0.72 mg/dL (0.55-1.02); EST Glomerular Filtration Rate 83 mL/min (>60); Est Glom Filt Rate - Afr Amer 101 mL/min (>60); Globulin 3.1 g/dL (2.2-4.2); Glucose 103 mg/dL (74-106); High Density Lipoprotein 64 mg/dL; Potassium 4.1 mmol/L (3.5-5.1); Protein, Total 6.8 g/dL (6.4-8.2); Sodium Level 141 mmol/L (136-145); Thyroid Stim Hormone (TSH) 1.83 uIU/mL (0.358-3.74); Triglycerides 84 mg/dL; Very Low Density Lipoprotein 17 mg/dL (5-40)
== END | disposition home or self-care (01) ==
LOC: POLAB3 13:24
PROVIDERS: PCP Family Medicine Geriatric Medicine; Visit Provider Family Medicine Geriatric Medicine
DX: E11.65 Type 2 diabetes mellitus with hyperglycemia (principal); I10 Essential (primary) hypertension; E55.9 Vitamin D deficiency, unspecified; E78.5 Hyperlipidemia, unspecified
CPT/HCPCS: 36415; 80053; 80061; 82306; 83036; 84443; 85025

== ENCOUNTER → 2024-02-12 | Outpatient (CLI) | payer MEDICARE, SELFPAY ==
[2024-02-12 12:12] LABS: Absolute Lymphocyte Count 2.45 X10^3/uL (0.83-4.51); Absolute Neutrophil Count 4.3 X10^3/uL (2.0-7.7); Basophil# 0.04 X10^3/uL; Basophil% 0.5 % (0-1); Eosinophil# 0.15 X10^3/uL; Hematocrit 41.1 % (37-47); Hemoglobin 13.1 g/dL (12.0-15.0); Lymphocyte # 2.45 X10^3/ul (0.83-4.51); Lymphocyte % 32.3 % (19-41); Mean Corp Hgb Conc 31.9 g/dL (32-36); Mean Corpuscular Hgb 29.4 pg (27.0-32.0); Mean Corpuscular Volume 92.4 fL (81-99); Mean Platelet Vol. 10.6 fl (6.2-12.0); Monocyte# 0.64 X10^3/uL; Monocyte% 8.4 % (0-10); NRBC Flagged by Analyzer 0 % (0-5); Neutrophil % 56.7 % (47-70); Platelet Count 311 K/mm3 (150-450); RBC Distribution Width CV 13.9 % (11.6-14.6); RBC Distribution Width SD 47.4 fl (35.1-43.9); Red Blood Count 4.45 M/mm3 (4.2-5.4); White Blood Count 7.6 K/mm3 (4.4-11.0)
[2024-02-12 12:35] LABS: Vitamin D,25 Hydroxy 30.1 ng/mL
[2024-02-12 12:44] LABS: Hemoglobin A1c 6.2 % (3.8-5.6)
[2024-02-12 13:22] LABS: ALB/GLOB Ratio 1.2 RATIO (0.9-2.4); AST(SGOT) 19 U/L (15-37); Alanine Aminotransfer ALT/SGPT 20 U/L (13-56); Albumin, Serum 3.9 g/dL (3.2-5.0); Alkaline Phosphatase 101 U/L (45-117); Anion Gap 4 (5-15); BUN 31 mg/dL (7-18); BUN/Creat Ratio 34.5 RATIO (10-20); Calcium,Total 9.7 mg/dL (8.5-10.1); Chloride 112 mmol/L (98-107); Cholesterol 151 mg/dL (200); EST Glomerular Filtration Rate 64 mL/min (>60); Est Glom Filt Rate - Afr Amer 78 mL/min (>60); Globulin 3.3 g/dL (2.2-4.2); Glucose 110 mg/dL (74-106); High Density Lipoprotein 77 mg/dL; Potassium 4.2 mmol/L (3.5-5.1); Protein, Total 7.2 g/dL (6.4-8.2); Sodium Level 140 mmol/L (136-145); Triglycerides 85 mg/dL; Very Low Density Lipoprotein 17 mg/dL (5-40)
== END | disposition home or self-care (01) ==
LOC: POLAB3 11:34
PROVIDERS: PCP Family Medicine Geriatric Medicine; Visit Provider Family Medicine Geriatric Medicine
DX: E11.65 Type 2 diabetes mellitus with hyperglycemia (principal); I10 Essential (primary) hypertension; E55.9 Vitamin D deficiency, unspecified; E78.5 Hyperlipidemia, unspecified; R68.83 Chills (without fever)
CPT/HCPCS: 36415; 80053; 80061; 82306; 83036; 84443; 85025; 87631

== ENCOUNTER → 2024-08-11 | Outpatient (CLI) | payer MEDICARE, SELFPAY ==
[2024-08-11 13:03] LABS: Absolute Lymphocyte Count 2.21 X10^3/uL (0.83-4.51); Absolute Neutrophil Count 2.9 X10^3/uL (2.0-7.7); Basophil# 0.02 X10^3/uL; Basophil% 0.3 % (0-1); Eosinophil# 0.19 X10^3/uL; Eosinophils% 3.2 % (0-5); Hematocrit 37.9 % (37-47); Hemoglobin 12.6 g/dL (12.0-15.0); Lymphocyte # 2.21 X10^3/ul (0.83-4.51); Lymphocyte % 37.6 % (19-41); Mean Corp Hgb Conc 33.2 g/dL (32-36); Mean Corpuscular Hgb 30.7 pg (27.0-32.0); Mean Corpuscular Volume 92.4 fL (81-99); Mean Platelet Vol. 9.8 fl (6.2-12.0); Monocyte# 0.55 X10^3/uL; Monocyte% 9.4 % (0-10); NRBC Flagged by Analyzer 0 % (0-5); Neutrophil # 2.88 X10^3/uL (2.7-7.7); Platelet Count 268 K/mm3 (150-450); RBC Distribution Width CV 13.6 % (11.6-14.6); RBC Distribution Width SD 46.8 fl (35.1-43.9); White Blood Count 5.9 K/mm3 (4.4-11.0)
[2024-08-11 14:05] LABS: Vitamin D,25 Hydroxy 22.8 ng/mL (30-100)
[2024-08-11 14:08] LABS: ALB/GLOB Ratio 1.7 RATIO (0.9-2.4); AST(SGOT) 22 U/L (<=31); Alanine Aminotransfer ALT/SGPT 17 U/L (<=34); Albumin, Serum 4.1 g/dL (3.4-4.8); Alkaline Phosphatase 104 U/L (35-104); Anion Gap 10 (5-15); BUN 22 mg/dL (4-19); Calcium,Total 9.6 mg/dL (7.6-11.0); Carbon Dioxide 21.9 mmol/L (21.0-32.0); Chloride 110 mmol/L (98-108); Creatinine, Serum 0.68 mg/dL (0.70-1.20); EST Glomerular Filtration Rate 88 (>60); Globulin 2.5 g/dL (2.2-4.2); Glucose 104 mg/dL (70-99); Potassium 4.2 mmol/L (3.3-5.1); Protein, Total 6.6 g/dL (5.9-8.4); Sodium Level 142 mmol/L (133-145); Total Bilirubin < 0.15 mg/dL (0.00-1.30)
== END | disposition home or self-care (01) ==
LOC: LAB 12:04
PROVIDERS: PCP Family Medicine Geriatric Medicine; Referring Provider Family Medicine Geriatric Medicine; Visit Provider Family Medicine Geriatric Medicine
DX: E11.65 Type 2 diabetes mellitus with hyperglycemia (principal); I10 Essential (primary) hypertension; E55.9 Vitamin D deficiency, unspecified
CPT/HCPCS: 36415; 80053; 82306; 84443; 85025

== ENCOUNTER → 2024-12-02 | Outpatient (CLI) | payer MEDICARE, SELFPAY ==
[2024-12-02 11:54] LABS: Hematocrit 41.8 % (37-47); Hemoglobin 13.9 g/dL (12.0-15.0); Immature Granulocytes Count 0.010 X10^3/uL (0.0-0.0); Mean Corp Hgb Conc 33.3 g/dL (32-36); Mean Corpuscular Volume 91.7 fL (81-99); Mean Platelet Vol. 9.8 fl (6.2-12.0); NRBC Flagged by Analyzer 0 % (0-5); Platelet Count 305 K/mm3 (150-450); RBC Distribution Width CV 13.5 % (11.6-14.6); RBC Distribution Width SD 46.0 fl (35.1-43.9); Red Blood Count 4.56 M/mm3 (4.2-5.4); White Blood Count 6.1 K/mm3 (4.4-11.0)
[2024-12-02 12:36] LABS: AST(SGOT) 23 U/L (<=31); Alanine Aminotransfer ALT/SGPT 20 U/L (<=34); Albumin, Serum 4.7 g/dL (3.4-4.8); Alkaline Phosphatase 101 U/L (35-104); Anion Gap 13 (5-15); BUN 19 mg/dL (4-19); BUN/Creat Ratio 30.2 RATIO (10-20); Calcium,Total 10.0 mg/dL (7.6-11.0); Carbon Dioxide 22.5 mmol/L (21.0-32.0); Chloride 105 mmol/L (98-108); Globulin 2.6 g/dL (2.2-4.2); Glucose 101 mg/dL (70-99); Potassium 3.8 mmol/L (3.3-5.1)
[2024-12-02 12:46] LABS: Pro- Brain NATRIURETIC PEPTIDE 203 pg/mL (<=1800)
[2024-12-02 19:35] LABS: Xtra Tube Kwok EXTRA TUBE
== END | disposition home or self-care (01) ==
LOC: POLAB3 11:35
PROVIDERS: PCP Family Medicine Geriatric Medicine; Visit Provider Family Medicine Geriatric Medicine
DX: I11.0 Hypertensive heart disease with heart failure (principal); I50.9 Heart failure, unspecified; E03.9 Hypothyroidism, unspecified
CPT/HCPCS: 36415; 80053; 83880; 84443; 85025

== ENCOUNTER 2025-01-29 18:54 | Emergency (ER) | payer MEDICARE, SELFPAY ==
[2025-01-29 18:54] VITALS: BP 172/73; PULSE 77; RESP 18; TEMP 36.6; O2SAT 99; BMI 28.5
--- NOTE | 2025-01-29 20:09 | RAD_ITS ---
PROCEDURE: RIGHT TIBIA FIBULA 2 VIEWS 01/29/2025 REASON FOR EXAM: TRAUMA TECHNIQUE: Procedure Code: RADTF Modality: DX Procedure: TIBIA FIBULA 2 VIEWS Laterality: Right COMPARISON: None. FINDINGS: No acute fracture or dislocation. Alignment appears anatomic. Relatively well preserved joint spaces. Chronic corticated calcific density adjacent to the lateral femoral condyle, likely sequelae of remote lateral collateral ligament injury. Enthesopathic spurring of superior patella. No appreciable soft tissue swelling. RAD/Tibia & Fibula 2 Views IMPRESSION: No acute fracture or dislocation. Chronic/degenerative changes as described. Reading Location: [id number]
--- OUTSIDE RECORDS SUMMARY | 2025-01-29 20:17 | XMS RPT_ITS | CCD ---
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 Faraz Rivas Primary Care Provider René HAYES, Dr. Faraz Rivas Attending Provider René HAYES, Dr. Faraz Rivas Referring Provider Faraz Merritt Chi Attending Unavailable René, Faraz Chi Primary Care Unavailable René, Faraz Chi Referring Unavailable René, Fraaz Chi Attending Unavailable René, Faraz Chi Primary Care Unavailable René, Faraz Chi Primary Care Unavailable René Faraz Chi Attending Unavailable Allergies Allergy Classification Reported Allergen(s) Allergy Type Date of Onset Reaction(s) Facility (7 sources) Cephalosporins (Antibiotic) Allergy to substance 2 [facility] (7 sources) Codeine Drug Allergy 2 Unknown [facility] (7 sources) Pneumococcal vaccine Drug Allergy 2 [facility] (7 sources) Sulfonamides (Antibiotic) Allergy to substance 2 [facility] (7 sources) Tetracycline Drug Allergy [address] [facility] (1 source) Cephalosporins (Antibiotic) Drug allergy (disorder) 2 [facility] (1 source) Codeine Drug Allergy 2 [facility] (1 source) Pneumococcal vaccine Drug Allergy 2 [facility] (1 source) Sulfonamides (Antibiotic) Drug allergy (disorder) 2 [facility] (1 source) Tetracycline Drug Allergy 2 [facility] Medications Current Medications Medication Drug Class(es) Dates Sig (Normalized) Sig (Original) aspirin 81 mg delayed release oral tablet (7 sources) Platelet Aggregation Inhibitor, Nonsteroidal Anti-inflammatory Drug Start: 01-09-2021 Aspirin (Adult Low Dose Aspirin) 81 mg tablet,delayed release (DR/EC) Active 81 mg PO DAILY January 09, 2021 12:00am On Hold: Resume on 05/07/21. tentative date. cholecalciferol 0.05 mg oral capsule (7 sources) Vitamin D Start: 03-23-2021 take 1 capsule by mouth once daily Cholecalciferol (Vitamin D3) (Vitamin D3) 50 mcg (2,000 unit) Capsule Active 50 ug PO DAILY March 23, 2021 1:00am diazePAM 10 mg oral tablet (7 sources) Benzodiazepine Start: 11-06-2015 take 1 tablet by mouth once daily Diazepam 10 MG tablet Active 10 mg PO DAILY November 06, 2015 12:00am 24 hr dilTIAZem hydrochloride 240 mg extended release oral capsule (7 sources) Calcium Channel Justina Start: 11-06-2015 take 1 capsule by mouth once daily Diltiazem Hcl 240 MG capsule,extended release 24hr Active 240 mg PO DAILY November 06, 2015 12:00am gabapentin 300 mg oral capsule (7 sources) Anti-epileptic Agent Start: 06-12-2021 take 1 capsule by mouth at bedtime Gabapentin 300 mg capsule Active 300 mg PO AT BEDTIME 30 30 June 12, 2021 1:00am nerve pain garlic preparation 2000 mg oral capsule (7 sources) Non-Standardized Food Allergenic Extract Start: 03-23-2021 take 1 capsule by mouth once daily Garlic Capsule Active 2000 mg PO DAILY March 23, 2021 1:00am Start: 03-23-2021 take 2000 mg by mouth once hilda ly Garlic Active 2000 MG PO DAILY March 23, 2021 12:00am Start: 03-23-2021 take 2000 mg by mouth once hilda ly Garlic Active 2000 MG PO DAILY March 23, 2021 1:00am hydroCHLOROthiazide 25 mg oral tablet (7 sources) Thiazide Diuretic Start: 11-06-2015 take 1 tablet by mouth once daily Hydrochlorothiazide 25 MG tablet Active 25 mg PO DAILY November 06, 2015 12:00am metFORMIN hydrochloride 500 mg oral tablet (7 sources) Biguanide Start: 11-06-2015 take 1 tablet by mouth twice daily Metformin 500 MG tablet Active 500 mg PO TWICE A DAY November 06, 2015 12:00am [place]-3 Fatty Acids (5 sources) Start: 03-23-2021 take 1000 mg by mouth once daily [place]-3 Fatty Acids Active 1000 MG PO DAILY March 23, 2021 12:00am Start: 03-23-2021 take 1000 mg by mouth once hilda ly [place]-3 Fatty Acids Active 1000 MG PO DAILY March 23, 2021 1:00am [place]-3 Fatty Acids Capsule (2 sources) Start: 03-23-2021 take 1 capsule by mouth once daily [place]-3 Fatty Acids Capsule Active 1000 mg PO DAILY March 23, 2021 1:00am potassium chloride 20 meq extended release oral tablet (7 sources) Start: 11-06-2015 Potassium Chlo ride (Klor-Con M20) 20 MEQ tablet,ER particles/crystals Active 20 meq PO TWICE A DAY November 06, 2015 12:00am simvastatin 80 mg oral tablet (7 sources) HMG-CoA Reductase Inhibitor Start: 11-06-2015 take 1 tablet by mouth at bedtime Simvastatin 80 MG tablet Active 80 mg PO AT BEDTIME November 06, 2015 12:00am Vitamin K65-Ipvbwamhf Factor (5 sources) Start: 03-23-2021 take 1 capsule by mouth once daily Vitamin V94-Lvkzxwsyf Factor Active 1 CAP PO DAILY March 23, 2021 12:00am Start: 03-23-2021 take 1 capsule by mo [facility] once daily Vitamin B50-Ffytanpcj Factor Active 1 CAP PO DAILY March 23, 2021 1:00am Vitamin L76-Pvapxonmz Factor 110-0.5 mg Capsule (2 sources) Start: 03-23-2021 Vitamin B12-In trinsic Factor 110-0.5 mg Capsule Active 1 NMA PO DAILY March 23, 2021 1:00am Completed/Discontinued Medications Medication Drug Class(es) Dates Sig (Normalized) Sig (Original) acetaminophen 325 mg / oxyCODONE hydrochloride 5 mg oral tablet (7 sources) Opioid Agonist Start: 03-30-2021 End: 05-15-2021 Oxycodone-Acetamino phen (Percocet) 5-325 mg tablet Discontinued 1 {tbl} PO Q4H as needed for pain (scale score 7-10) 40 7 0 March 30, 2021 May 15, 2021 11:09am Other acute postprocedural pain Other acute postprocedural pain 40 tabs (forty) clindamycin 300 mg oral capsule (14 sources) Lincosamide Antibacterial Start: 03-30-2021 End: 06-12-2021 take 1 capsule by mouth three times daily Clindamycin Hcl (Cleocin Hcl) 300 mg capsule Discontinued 300 mg PO THREE TIMES A DAY 30 April 09, 2021 1:00am June 12, 2021 11:21am L.Acidoph,Saliva-B. Bif-S.Therm (Acidophilus Probiotic Blend) 175 mg capsule (20 sources) Start: 04-09-2021 End: 06-12-2021 take 1 capsule by mouth once daily L.Acidoph,Saliva-B. Bif-S.Therm (Acidophilus Probiotic Blend) 175 mg capsule Discontinued 1 NMA PO DAILY 30 April 09, 2021 1:27pm June 12, 2021 11:21am Start: 04-09-2021 End: 06-12-2021 take 1 capsule by mouth once daily L.Acidoph,Saliva-B.Bif-S.Therm (Acidophi george Probiotic Blend) 175 mg capsule Discontinued 1 NMA PO DAILY April 09, 2021 1:27pm June 12, 2021 11:21am Start: 04-09-2021 End: 06-12-2021 take 1 capsule by mouth once daily L.Acidoph,Saliva-B.Bif-S.Therm (Acidophi george Probiotic Blend) 175 mg capsule Discontinued 1 CAP PO DAILY April 09, 2021 12:27pm June 12, 2021 10:21am Start: 04-09-2021 End: 06-12-2021 take 1 capsule by mouth once daily L.Acidoph,Saliva-B.Bif-S.Therm (Acidophi george Probiotic Blend) 175 mg capsule Discontinued 1 CAP PO DAILY April 09, 2021 1:27pm June 12, 2021 11:21am Start: 04-09-2021 End: 05-15-2021 take 1 capsule by mouth once daily L.Acidoph,Saliva-B.Bif-S.Therm (Acidophi george Probiotic Blend) 175 mg capsule Discontinued 1 NMA PO DAILY April 09, 2021 1:00am May 15, 2021 11:08am Start: 04-09-2021 End: 05-15-2021 take 1 capsule by mouth once daily L.Acidoph,Saliva-B.Bif-S.Therm (Acidophi george Probiotic Blend) 175 mg capsule Discontinued 1 NMA PO DAILY April 09, 2021 1:00am May 15, 2021 11:08am Start: 04-09-2021 End: 05-15-2021 take 1 capsule by mouth once daily L.Acidoph,Saliva-B.Bif-S.Therm (Acidophi george Probiotic Blend) 175 mg capsule Discontinued 1 CAP PO DAILY April 09, 2021 12:00am May 15, 2021 10:08am Start: 04-09-2021 End: 05-15-2021 take 1 capsule by mouth once daily L.Acidoph,Saliva-B.Bif-S.Therm (Acidophi george Probiotic Blend) 175 mg capsule Discontinued 1 CAP PO DAILY April 09, 2021 1:00am May 15, 2021 11:08am Start: 03-30-2021 End: 04-09-2021 take 1 capsule by mouth once daily L.Acidoph,Saliva-B.Bif-S.Therm (Acidophi george Probiotic Blend) 175 mg capsule Discontinued 1 NMA PO DAILY March 30, 2021 1:00am April 09, 2021 1:28pm Start: 03-30-2021 End: 04-09-2021 take 1 capsule by mouth once daily L.Acidoph,Saliva-B.Bif-S.Therm (Acidophi george Probiotic Blend) 175 mg capsule Discontinued 1 NMA PO DAILY March 30, 2021 1:00am April 09, 2021 1:28pm Start: 03-30-2021 End: 04-09-2021 take 1 capsule by mouth once daily L.Acidoph,Saliva-B.Bif-S.Therm (Acidophi george Probiotic Blend) 175 mg capsule Discontinued 1 CAP PO DAILY March 30, 2021 12:00am April 09, 2021 12:28pm Start: 03-30-2021 End: 04-09-2021 take 1 capsule by mouth once daily L.Acidoph,Saliva-B.Bif-S.Therm (Acidophi george Probiotic Blend) 175 mg capsule Discontinued 1 CAP PO DAILY March 30, 2021 1:00am April 09, 2021 1:28pm traMADol hydrochloride 50 mg oral tablet (7 sources) Opioid Agonist Start: 04-12-2021 End: 04-19-2021 take 1 tablet by mouth three times daily as needed for pain Tramadol 50 mg tablet Discontinued 50 mg PO THREE TIMES A DAY as needed for pain (scale score 7-10) 20 7 0 April 12, 2021 1:00am April 18, 2021 1:00am April 19, 2021 1:01am Problems Problem Classification Problem Date Documented Da te Episodic/Chronic Allergic reactions (7 sources) Allergic condition; Translations: [Allergy, unspecified, initial encounter] 04-02-2021 Episodic Anxiety disorders (7 sources) Anxiety; Translations: [Anxiety disorder, unspecified] 03-23-2021 Chronic Cataract (7 sources) Bilateral cataracts; Translations: [Unspecified cataract] 01-09-2021 Chronic Congestive heart failure; nonhypertensive (1 source) Heart failure, unspecified; Translations: [Heart failure, unspecified] Onset: 12-08-2024 Chronic Diabetes mellitus with complications (1 source) Type 2 diabetes mellitus with hyperglycemia; Translations: [Type 2 diabetes mellitus with hyperglycemia] Onset: 08-19-2024 Chronic Diabetes mellitus without complication (7 sources) Type 2 diabetes mellitus; Translations: [Type 2 diabetes mellitus without complications] 01-09-2021 Chronic Diabetes mellitus without complication (7 sources) Hemoglobin A1c less than 7% indicating good diabetic control; Translations: [Other abnormal glucose] 03-08-2021 Episodic Comment on above: 5.7 ON 12/27/20 Disorders of lipid metabolism (7 sources) Hypercholesterolemia ; Translations: [Pure hypercholesterolemia , unspecified] 03-23-2021 Chronic Essential hypertension (7 sources) Hypertensive disorder; Translations: [Essential (primary) hypertension] 04-03-2021 Chronic Open wounds of head; neck; and trunk (20 sources) Open wound of lip; Translations: [Unspecified open wound of lip, sequela] 06-26-2021 Episodic Comment on above: painful scar contrac ture deformity skin of upper lip and philtrum Other nervous system disorders (7 sources) Acute postoperative pain; Translations: [Other acute postprocedural pain] 03-30-2021 Episodic Other non-epithelial cancer of skin (14 sources) Basal cell carcinoma of upper lip; Translations: [Basal cell carcinoma of skin of lip] 04-02-2021 Episodic Comment on above: 2 CM basal cell carc inoma BASE OF LEFT NOSTRIL INVOLVING THE EXTERNAL VESTIBULE AND EXTENDING ONTO THE NASAL FLOOR OF THE NASAL CAVITY, lateral nasal alar rim laterally, base of columella medially, and skin of upper lip and philtrum inferiorly Other skin disorders (7 sources) Actinic keratosis; Translations: [Actinic keratosis] 03-08-2021 Episodic Comment on above: 7 MM ACTINIC LESION NASAL DORSUM, SUPERIOR7 MM ACTINIC LESION NASAL DORSUM, INFERIOR Residual codes; unclassified (7 sources) Family history of malignant neoplasm of skin; Translations: [Family history of malignant neoplasm of other organs or systems] 04-02-2021 Episodic Screening and history of mental health and substance abuse codes (7 sources) Ex-smoker; Translations: [Personal history of nicotine dependence] 03-23-2021 Episodic Results Test Name Value Interpretation Reference Range Facility Absolute lymphocyte countOrd ered By: Faraz Merritt on 12-02-2024 Lymphocytes Auto (Unsp spec) [#/Vol] 1.98 10*3/uL 0.83-4.51 [facility] Absolute neutrophil countOrd ered By: Faraz Merritt on 12-02-2024 Neutrophils (Bld) [#/Vol] 3.4 10*3/uL 2.0-7.7 [facility] Anion gap in Serum or Plasma Ordered By: Faraz Merritt on 12-02-2024 Anion gap [Moles/Vol] 13 mmol/L 5- [facility] Automated lymphocyte count a s percentage of total leukocytesOrdered By: Faraz Merritt on 12-02-2024 Lymphocytes/100 WBC Auto (Unsp spec) 32.5 % - [facility] BUN/creatinine ratioOrdered By: Faraz Merritt on 12-02-2024 Urea nitrogen/Creatinine [Mass ratio] 30.2 mg/mg High 10- [facility] Basophil percentageOrdered B y: Faraz Merritt on 12-02-2024 Basophils/100 WBC (Bld) 0.3 % 0-1 [facility] Bilirubin, totalOrdered By: Faraz Merritt on 12-02-2024 Bilirubin [Mass/Vol] 0.33 mg/dL 0.00-1.30 [facility] CBC W/Diff, Automatedon 11-13 Absolute Lymph 1.98 X10 3/uL Normal 0.83-4.51 [facility] Comment on above: Performed By: #### L [id number], L100.0100, [id number], [id number] #### [facility] [address] [place], [address] Absolute Neut 3.4 X10 3/uL Normal 2.0-7.7 [facility] Comment on above: Performed By: #### L [id number], L100.0100, [id number], [id number] #### [facility] [address] [place], [address] Basophils/100 WBC (Bld) 0.3 % Normal 0-1 [facility] Comment on above: Performed By: #### L [id number], L100.0100, [id number], [id number] #### [facility] [address] [place], [address] Eosinophils/100 WBC (Bld) 2.5 % Normal 0-5 [facility] Comment on above: Performed By: #### L [id number], L100.0100, [id number], [id number] #### [facility] [address] [place], [address] Erythrocyte distribution width (RBC) [Ratio] 13.5 % Normal 11.6-14.6 [facility] Comment on above: Performed By: #### L [id number], L100.0100, [id number], [id number] #### [facility] [address] [place], [address] Hematocrit (Bld) [Volume fraction] 41.8 % Normal 37-47 [facility] Comment on above: Performed By: #### L [id number], L100.0100, [id number], [id number] #### [facility] [address] [place], [address] Hemoglobin (Bld) [Mass/Vol] 13.9 g/dL Normal 12.0-15.0 [facility] Comment on above: Performed By: #### L [id number], L100.0100, [id number], [id number] #### [facility] [address] [place], [address] IG% 0.200 Normal 0.0-0.9 [facility] Comment on above: Result Comment: IG% - Immature Granulocytes (promyelocytes, myelocytes and metamyelocytes) > 1% indicates that a LEFT SHIFT is Present. Performed By: #### L [id number], L100.0100, [id number], [id number] #### [facility] [address] [place], [address] Lymphocytes/100 WBC (Bld) 32.5 % Normal 19-41 [facility] Comment on above: Performed By: #### L [id number], L100.0100, [id number], [id number] #### [facility] [address] [place], [address] MCH (RBC) [Entitic mass] 30.5 pg Normal 27.0-32.0 [facility] Comment on above: Performed By: #### L [id number], L100.0100, [id number], [id number] #### [facility] [address] [place], [address] MCHC (RBC) [Mass/Vol] 33.3 g/dL Normal 32-36 [facility] Comment on above: Performed By: #### L [id number], L100.0100, [id number], [id number] #### [facility] [address] [place], [address] MCV (RBC) [Entitic vol] 91.7 fL Normal 81-99 [facility] Comment on above: Performed By: #### L [id number], L100.0100, [id number], [id number] #### [facility] [address] [place], [address] Monocytes/100 WBC (Bld) 8.0 % Normal 0-10 [facility] Comment on above: Performed By: #### L [id number], L100.0100, [id number], [id number] #### [facility] [address] [place], [address] Neutrophils/100 WBC (Bld) 56.5 % Normal 47-70 [facility] Comment on above: Performed By: #### L [id number], L100.0100, [id number], [id number] #### [facility] [address] [place], [address] Nucleated RBC (Bld) [#/Vol] 0 10*3/uL Normal 0-5 [facility] Comment on above: Performed By: #### L [id number], L100.0100, [id number], [id number] #### [facility] [address] [place], [address] Platelet mean volume (Bld) [Entitic vol] 9.8 fL Normal 6.2-12.0 [facility] Comment on above: Performed By: #### L [id number], L100.0100, [id number], [id number] #### [facility] [address] [place], [address] Platelets (Bld) [#/Vol] 305 10*3/uL Normal 150-450 [facility] Comment on above: Performed By: #### L [id number], L100.0100, [id number], [id number] #### [facility] [address] [place], [address] RBC (Bld) [#/Vol] 4.56 10*6/uL Normal 4.2-5.4 [facility] Comment on above: Performed By: #### L [id number], L100.0100, [id number], [id number] #### [facility] [address] [place], [address] RDW SD 46.0 fl High 35.1-43.9 [facility] Comment on above: Performed By: #### L [id number], L100.0100, [id number], [id number] #### [facility] [address] [place], [address] WBC (Bld) [#/Vol] 6.1 10*3/uL Normal 4.4-11.0 [facility] Comment on above: Performed By: #### L [id number], L100.0100, [id number], [id number] #### [facility] [address] [place], [address] Carbon dioxide, total [Moles /volume] in Central venous bloodOrdered By: Faraz Merritt on 12-02-2024 CO2 [Moles/Vol] 22.5 mmol/L 21.0-32.0 [facility] Chloride assayOrdered By: Karan Merritt on 12-02-2024 Chloride [Moles/Vol] 105 mmol/L 98-108 [facility] Comprehensive Metabolic Prof ilon 12-02-2024 Albumin [Mass/Vol] 4.7 g/dL Normal 3.4-4.8 [facility] Comment on above: Performed By: #### L [id number], L100.0100, [id number], [id number] #### [facility] [address] [place], [address] Albumin/Globulin [Mass ratio] 1.8 {ratio} Normal 0.9-2.4 [facility] Comment on above: Performed By: #### L [id number], L100.0100, [id number], [id number] #### [facility] [address] [place], [address] ALK PHOS 101 U/L Normal 35-104 [facility] Comment on above: Performed By: #### L [id number], L100.0100, [id number], [id number] #### [facility] [address] [place], [address] ALT [Catalytic activity/Vol] 20 U/L Normal <=34 [facility] Comment on above: Performed By: #### L [id number], L100.0100, [id number], [id number] #### [facility] [address] [place], [address] AST [Catalytic activity/Vol] 23 U/L Normal <=31 [facility] Comment on above: Performed By: #### L [id number], L100.0100, [id number], [id number] #### [facility] [address] [place], [address] Bilirubin [Mass/Vol] 0.33 mg/dL Normal 0.00-1.30 [facility] Comment on above: Performed By: #### L [id number], L100.0100, [id number], [id number] #### [facility] [address] [place], [address] BUN/CRE 30.2 RATIO High 10-20 [facility] Comment on above: Performed By: #### L [id number], L100.0100, [id number], [id number] #### [facility] [address] [place], [address] Calcium [Mass/Vol] 10.0 mg/dL Normal 7.6-11.0 [facility] Comment on above: Performed By: #### L [id number], L100.0100, [id number], [id number] #### [facility] [address] [place], [address] Chloride [Moles/Vol] 105 mmol/L Normal 98-108 [facility] Comment on above: Performed By: #### L [id number], L100.0100, [id number], [id number] #### [facility] [address] [place], [address] CO2 [Moles/Vol] 22.5 mmol/L Normal 21.0-32.0 [facility] Comment on above: Performed By: #### L [id number], L100.0100, [id number], [id number] #### [facility] [address] [place], [address] Creatinine [Mass/Vol] 0.64 mg/dL Low 0.70-1.20 [facility] Comment on above: Performed By: #### L [id number], L100.0100, [id number], [id number] #### [facility] [address] [place], [address] GAP 13 Normal 5-15 [facility] Comment on above: Performed By: #### L [id number], L100.0100, [id number], [id number] #### [facility] [address] [place], [address] GFR/1.73 sq M.predicted among non-blacks MDRD (S/P/Bld) [Vol rate/Area] 89 mL/min/{1.73_m2} Normal >60 [facility] Comment on above: Result Comment: mL/m in/1.73m2 CKD-EPI Creatinine Equation (2020) Performed By: #### L [id number], L100.0100, [id number], [id number] #### [facility] [address] [place], [address] Globulin (S) [Mass/Vol] 2.6 g/dL Normal 2.2-4.2 [facility] Comment on above: Performed By: #### L [id number], L100.0100, [id number], [id number] #### [facility] [address] [place], [address] Glucose [Mass/Vol] 101 mg/dL High 70-99 [facility] Comment on above: Performed By: #### L [id number], L100.0100, [id number], [id number] #### [facility] [address] [place], [address] Potassium [Moles/Vol] 3.8 mmol/L Normal 3.3-5.1 [facility] Comment on above: Performed By: #### L [id number], L100.0100, [id number], [id number] #### [facility] [address] [place], [address] Sodium [Moles/Vol] 141 mmol/L Normal 133-145 [facility] Comment on above: Performed By: #### L [id number], L100.0100, [id number], [id number] #### [facility] [address] [place], [address] T PROT 7.3 g/dL Normal 5.9-8.4 [facility] Comment on above: Performed By: #### L [id number], L100.0100, [id number], [id number] #### [facility] [address] [place], [address] Urea nitrogen [Mass/Vol] 19 mg/dL Normal 4-19 [facility] Comment on above: Performed By: #### L [id number], L100.0100, [id number], [id number] #### [facility] [place], [address] Eosinophil percentageOrdered By: Faraz René on 12-02-2024 Eosinophils/100 WBC (Bld) 2.5 % 0-5 [facility] Erythrocyte distribution wid th ratioOrdered By: [facility] Erythrocyte distribution width (RBC) [Ratio] 13.5 % 11.6-14.6 [facility] Erythrocyte distribution wid th standard deviationOrdered By: [facility] on 12-02-2024 Erythrocyte distribution width (RBC) [Ratio] 46.0 fl High 35.1-43.9 [facility] Glomerular filtration rate ( GFR) estimation/1.73 sq m using serum, plasma, or whole bOrdered By: [facility] on 12-02-2024 GFR/1.73 sq M.predicted among non-blacks MDRD (S/P/Bld) [Vol rate/Area] 89 mL/min/{1.73_m2} >60 [facility] Comment on above: mL/min/1.73m2 CKD-EP I Creatinine Equation (2020) Hematocrit Auto (Bld) [Volum e fraction]Ordered By: [facility] 12-[facility]-2024 Hematocrit (Bld) [Volume fraction] 41.8 % 37-47 [facility] Hemoglobin measurementOrdere d By: Faraz Merritt 12-02-2024 Hemoglobin (Bld) [Mass/Vol] 13.9 g/dL 12.0-15.0 [facility] Immature granulocytes/100 WB C Auto (Bld)Ordered By: Faraz René 12-02-2024 Immature granulocytes/100 WBC (Bld) 0.200 % 0.0-0.9 [facility] Comment on above: IG% - Immature Granu locytes (promyelocytes, myelocytes and metamyelocytes) > 1% indicates that a LEFT SHIFT is Present. Laboratory - Chemistry and C hemistry - challengeOrdered By: Faraz René 12-02-2024 AST [Catalytic activity/Vol] 23 U/L <32 [facility] MCV (mean corpuscular volume ) determinationOrdered By: Faraz Merritt on 12-02-2024 MCV (RBC) [Entitic vol] 91.7 fL 81-99 [facility] Mean corpuscular hemoglobin (MCH) determinationOrdered By: Faraz Merritt on 12-02-2024 MCH (RBC) [Entitic mass] 30.5 pg 27.0-32.0 [facility] Mean corpuscular hemoglobin concentration (MCHC) determinationOrdered By: Faraz Merritt on 12-02-2024 MCHC (RBC) [Mass/Vol] 33.3 g/dL 32-36 [facility] Mean platelet volume determi nationOrdered By: Faraz Merritt on 12-02-2024 Platelet mean volume (Bld) [Entitic vol] 9.8 fL 6.2-12.0 [facility] Monocyte percentageOrdered B y: Faraz Merritt on 12-02-2024 Monocytes/100 WBC (Bld) 8.0 % 0-10 [facility] Natriuretic peptide.B prohor raquel N-Terminal [Mass/volume] in Serum or PlasmaOrdered By: Faraz Merritt on 12-02-2024 Natriuretic peptide.B prohormone N-Terminal [Mass/Vol] 203 pg/mL <1800 [facility] Comment on above: Heart Failure Unlike ly: < 300 pg/mLHeart Failure Likely< 50 Years: > 450 pg/mL50-75 Years: > 900 pg/mL>75 Years: > 1800 pg/mL Neutrophil percentageOrdered By: Faraz Merritt on 12-02-2024 Neutrophils/100 WBC (Bld) 56.5 % 47-70 [facility] Nucleated red blood cell per centageOrdered By: Faraz Merritt on 12-02-2024 Nucleated RBC/100 WBC (Bld) [Ratio] 0 % 0-5 [facility] Platelet countOrdered By: Karan Merritt on 12-02-2024 Platelets (Bld) [#/Vol] 305 10*3/uL 150-450 [facility] Potassium measurement (mass/ volume)Ordered By: Faraz Merritt on 12-02-2024 Potassium (Unsp spec) [Mass/Vol] 3.8 mmol/L 3.3-5.1 [facility] Pro- Brain NATRIURETIC PEPTI Driss 12-02-2024 Natriuretic peptide B (Bld) [Mass/Vol] 203 pg/mL Normal <=1800 [facility] Comment on above: Result Comment: Hear t Failure Unlikely: < 300 pg/mL Heart Failure Likely < 50 Years: > 450 pg/mL 50-75 Years: > 900 pg/mL >75 Years: > 1800 pg/mL Performed By: #### L 503.7505, L100.0100, L501.9520, L500.4050 #### [facility] [address] [place], [address] RBC Auto (Bld) [#/Vol]Ordere d By: Faraz Merritt on 12-02-2024 RBC (Bld) [#/Vol] 4.56 10*6/uL 4.2-5.4 [facility] Serum creatinine measurement (mass/volume)Ordered By: Faraz Merritt on 12-02-2024 Creatinine [Mass/Vol] 0.64 mg/dL Low 0.70-1.20 [facility] Serum globulin measurementOr dered By: Faraz Merritt 12-02-2024 Globulin (S) [Mass/Vol] 2.6 g/dL 2.2-4.2 [facility] Serum glucose measurement (m ass/volume)Ordered By: Faraz Merritt on 12-02-2024 Glucose [Mass/Vol] 101 mg/dL High 70-99 [facility] Serum or plasma alanine mora otransferase (ALT) measurementOrdered By: Faraz Merritt 12-02-2024 ALT [Catalytic activity/Vol] 20 U/L <35 [facility] Serum or plasma albumin santi urement (mass/volume)Ordered By: Faraz Merritt on 12-02-2024 Albumin [Mass/Vol] 4.7 g/dL 3.4-4.8 [facility] Serum or plasma albumin/glob ulin mass ratioOrdered By: Faraz Merritt 12-02-2024 Albumin/Globulin [Mass ratio] 1.8 {ratio} 0.9-2.4 [facility] Serum or plasma alkaline linus sphatase measurementOrdered By: Faraz Merritt 12-02-2024 ALP [Catalytic activity/Vol] 101 U/L 35-104 [facility] Serum or plasma calcium santi urement (mass/volume)Ordered By: Faraz Merritt on 12-02-2024 Calcium [Mass/Vol] 10.0 mg/dL 7.6-11.0 [facility] Serum or plasma urea nitroge n measurement (mass/volume)Ordered By: Faraz Merritt on 12-02-2024 Urea nitrogen [Mass/Vol] 19 mg/dL 4-19 [facility] Sodium levelOrdered By: Faraz Merritt on 12-02-2024 Sodium [Moles/Vol] 141 mmol/L 133-145 [facility] TSH DL <= 0.005 mIU/L QnOrde red By: Faraz Merritt on 12-02-2024 TSH Qn 1.840 uIU/mL 0.300-4.200 [facility] Thyroid Stim Hormone (TSH)on 12-02-2024 TSH 1.840 uIU/mL Normal 0.300-4.200 [facility] Comment on above: Performed By: #### L 503.7505, L100.0100, L501.9520, L500.4050 #### [facility] [address] [place] [address], [address] Total proteinOrdered By: Faraz Merritt on 12-02-2024 Protein [Mass/Vol] 7.3 g/dL 5.9-8.4 [facility] White blood cell (WBC) count Ordered By: Faraz Merritt on 12-02-2024 WBC (Bld) [#/Vol] 6.1 10*3/uL 4.4-11.0 [facility] Absolute lymphocyte countOrd ered By: Faraz Merritt on 08-11-2024 Lymphocytes Auto (Unsp spec) [#/Vol] 2.21 10*3/uL 0.83-4.51 [facility] Absolute neutrophil countOrd ered By: Faraz Merritt on 08-11-2024 Neutrophils (Bld) [#/Vol] 2.9 10*3/uL 2.0-7.7 [facility] Anion gap in Serum or Plasma Ordered By: Faraz Merritt on 08-11-2024 Anion gap [Moles/Vol] 10 mmol/L 5-15 [facility] Automated lymphocyte count a s percentage of total leukocytesOrdered By: Faraz Merritt on 08-11-2024 Lymphocytes/100 WBC Auto (Unsp spec) 37.6 % - [facility] BUN/creatinine ratioOrdered By: Faraz Merritt on 08-11-2024 Urea nitrogen/Creatinine [Mass ratio] 33.0 mg/mg High 10- [facility] Basophil percentageOrdered B y: Faraz Merritt on 08-11-2024 Basophils/100 WBC (Bld) 0.3 % 0-1 [facility] Bilirubin, totalOrdered By: Faraz Merritt on 08-11-2024 Bilirubin [Mass/Vol] mg/dL 0.00-1.30 [facility] CBC W/Diff, Automatedon 07-15 Absolute Lymph 2.21 X10 3/uL Normal 0.83-4.51 [facility] Comment on above: Performed By: #### L 506.1001, L500.4050, L100.0100, L501.9520 #### [facility] [address] [place], [address] Absolute Neut 2.9 X10 3/uL Normal 2.0-7.7 [facility] Comment on above: Performed By: #### L 506.1001, L500.4050, L100.0100, L501.9520 #### [facility] [address] [place], [address] Basophils/100 WBC (Bld) 0.3 % Normal 0-1 [facility] Comment on above: Performed By: #### L 506.1001, L500.4050, L100.0100, L501.9520 #### [facility] [address] [place], [address] Eosinophils/100 WBC (Bld) 3.2 % Normal 0-5 [facility] Comment on above: Performed By: #### L 506.1001, L500.4050, L100.0100, L501.9520 #### [facility] [address] [place], [address] Erythrocyte distribution width (RBC) [Ratio] 13.6 % Normal 11.6-14.6 [facility] Comment on above: Performed By: #### L 506.1001, L500.4050, L100.0100, L501.9520 #### [facility] [address] [place], [address] Hematocrit (Bld) [Volume fraction] 37.9 % Normal 37-47 [facility] Comment on above: Performed By: #### L 506.1001, L500.4050, L100.0100, L501.9520 #### [facility] [address] [place], [address] Hemoglobin (Bld) [Mass/Vol] 12.6 g/dL Normal 12.0-15.0 [facility] Comment on above: Performed By: #### L 506.1001, L500.4050, L100.0100, L501.9520 #### [facility] [address] [place], [address] IG% 0.500 Normal 0.0-0.9 [facility] Comment on above: Result Comment: IG% - Immature Granulocytes (promyelocytes, myelocytes and metamyelocytes) > 1% indicates that a LEFT SHIFT is Present. Performed By: #### L 506.1001, L500.4050, L100.0100, L501.9520 #### [facility] [address] [place], [address] Lymphocytes/100 WBC (Bld) 37.6 % Normal 19-41 [facility] Comment on above: Performed By: #### L 506.1001, L500.4050, L100.0100, L501.9520 #### [facility] [address] [place], [address] MCH (RBC) [Entitic mass] 30.7 pg Normal 27.0-32.0 [facility] Comment on above: Performed By: #### L 506.1001, L500.4050, L100.0100, L501.9520 #### [facility] [address] [place], [address] MCHC (RBC) [Mass/Vol] 33.2 g/dL Normal 32-36 [facility] Comment on above: Performed By: #### L 506.1001, L500.4050, L100.0100, L501.9520 #### [facility] [address] [place], [address] MCV (RBC) [Entitic vol] 92.4 fL Normal 81-99 [facility] Comment on above: Performed By: #### L 506.1001, L500.4050, L100.0100, L501.9520 #### [facility] [address] [place], [address] Monocytes/100 WBC (Bld) 9.4 % Normal 0-10 [facility] Comment on above: Performed By: #### L 506.1001, L500.4050, L100.0100, L501.9520 #### [facility] [address] [place], [address] Neutrophils/100 WBC (Bld) 49.0 % Normal 47-70 [facility] Comment on above: Performed By: #### L 506.1001, L500.4050, L100.0100, L501.9520 #### [facility] [address] [place], [address] Nucleated RBC (Bld) [#/Vol] 0 10*3/uL Normal 0-5 [facility] Comment on above: Performed By: #### L 506.1001, L500.4050, L100.0100, L501.9520 #### [facility] [address] [place], [address] Platelet mean volume (Bld) [Entitic vol] 9.8 fL Normal 6.2-12.0 [facility] Comment on above: Performed By: #### L 506.1001, L500.4050, L100.0100, L501.9520 #### [facility] [address] [place], [address] Platelets (Bld) [#/Vol] 268 10*3/uL Normal 150-450 [facility] Comment on above: Performed By: #### L 506.1001, L500.4050, L100.0100, L501.9520 #### [facility] [address] [place], [address] RBC (Bld) [#/Vol] 4.10 10*6/uL Low 4.2-5.4 [facility] Comment on above: Performed By: #### L 506.1001, L500.4050, L100.0100, L501.9520 #### [facility] [address] [place], [address] RDW SD 46.8 fl High 35.1-43.9 [facility] Comment on above: Performed By: #### L 506.1001, L500.4050, L100.0100, L501.9520 #### [facility] [address] [place], [address] WBC (Bld) [#/Vol] 5.9 10*3/uL Normal 4.4-11.0 [facility] Comment on above: Performed By: #### L 506.1001, L500.4050, L100.0100, L501.9520 #### [facility] [address] [place], [address] Carbon dioxide, total [Moles /volume] in Central venous bloodOrdered By: Faraz Merritt on 08-11-2024 CO2 [Moles/Vol] 21.9 mmol/L 21.0-32.0 [facility] Chloride assayOrdered By: Karan alfonso René on 08-11-2024 Chloride [Moles/Vol] 110 mmol/L High 98-108 [facility] Comprehensive Metabolic Prof ilon 08-11-2024 Albumin [Mass/Vol] 4.1 g/dL Normal 3.4-4.8 [facility] Comment on above: Performed By: #### L 506.1001, L500.4050, L100.0100, L501.9520 #### [facility] [address] [place], [address] Albumin/Globulin [Mass ratio] 1.7 {ratio} Normal 0.9-2.4 [facility] Comment on above: Performed By: #### L 506.1001, L500.4050, L100.0100, L501.9520 #### [facility] [address] [place], [address] ALK PHOS 104 U/L Normal 35-104 [facility] Comment on above: Performed By: #### L 506.1001, L500.4050, L100.0100, L501.9520 #### [facility] [address] [place], [address] ALT [Catalytic activity/Vol] 17 U/L Normal <=34 [facility] Comment on above: Performed By: #### L 506.1001, L500.4050, L100.0100, L501.9520 #### [facility] [address] [place], [address] AST [Catalytic activity/Vol] 22 U/L Normal <=31 [facility] Comment on above: Performed By: #### L 506.1001, L500.4050, L100.0100, L501.9520 #### [facility] [address] [place], [address] BUN/CRE 33.0 RATIO High 10-20 [facility] Comment on above: Performed By: #### L 506.1001, L500.4050, L100.0100, L501.9520 #### [facility] [address] [place], [address] Calcium [Mass/Vol] 9.6 mg/dL Normal 7.6-11.0 [facility] Comment on above: Performed By: #### L 506.1001, L500.4050, L100.0100, L501.9520 #### [facility] [address] [place], [address] Chloride [Moles/Vol] 110 mmol/L High 98-108 [facility] Comment on above: Performed By: #### L 506.1001, L500.4050, L100.0100, L501.9520 #### [facility] [address] [place], [address] CO2 [Moles/Vol] 21.9 mmol/L Normal 21.0-32.0 [facility] Comment on above: Performed By: #### L 506.1001, L500.4050, L100.0100, L501.9520 #### [facility] [address] [place], [address] Creatinine [Mass/Vol] 0.68 mg/dL Low 0.70-1.20 [facility] Comment on above: Performed By: #### L 506.1001, L500.4050, L100.0100, L501.9520 #### [facility] [address] [place], [address] GAP 10 Normal 5-15 [facility] Comment on above: Performed By: #### L 506.1001, L500.4050, L100.0100, L501.9520 #### [facility] [address] [place], [address] GFR/1.73 sq M.predicted among non-blacks MDRD (S/P/Bld) [Vol rate/Area] 88 mL/min/{1.73_m2} Normal >60 [facility] Comment on above: Result Comment: mL/m in/1.73m2 CKD-EPI Creatinine Equation (2020) Performed By: #### L 506.1001, L500.4050, L100.0100, L501.9520 #### [facility] [address] [place], [address] Globulin (S) [Mass/Vol] 2.5 g/dL Normal 2.2-4.2 [facility] Comment on above: Performed By: #### L 506.1001, L500.4050, L100.0100, L501.9520 #### [facility] [address] [place], [address] Glucose [Mass/Vol] 104 mg/dL High 70-99 [facility] Comment on above: Performed By: #### L 506.1001, L500.4050, L100.0100, L501.9520 #### [facility] [address] [place], [address] Potassium [Moles/Vol] 4.2 mmol/L Normal 3.3-5.1 [facility] Comment on above: Performed By: #### L 506.1001, L500.4050, L100.0100, L501.9520 #### [facility] [address] [place], [address] Sodium [Moles/Vol] 142 mmol/L Normal 133-145 [facility] Comment on above: Performed By: #### L 506.1001, L500.4050, L100.0100, L501.9520 #### [facility] [address] [place], [address] T BILI < 0.15 Normal 0.00-1.30 [facility] Comment on above: Performed By: #### L 506.1001, L500.4050, L100.0100, L501.9520 #### [facility] [address] [place], [address] T PROT 6.6 g/dL Normal 5.9-8.4 [facility] Comment on above: Performed By: #### L 506.1001, L500.4050, L100.0100, L501.9520 #### [facility] [address] [place], [address] Urea nitrogen [Mass/Vol] 22 mg/dL High 4-19 [facility] Comment on above: Performed By: #### L 506.1001, L500.4050, L100.0100, L501.9520 #### [facility] [address] [place], [address] Eosinophil percentageOrdered By: Faraz Merritt on 08-11-2024 Eosinophils/100 WBC (Bld) 3.2 % 0-5 [facility] Erythrocyte distribution wid th ratioOrdered By: Faraz Merritt on 08-11-2024 Erythrocyte distribution width (RBC) [Ratio] 13.6 % 11.6-14.6 [facility] Erythrocyte distribution wid th standard deviationOrdered By: Faraz Merrtit on 08-11-2024 Erythrocyte distribution width (RBC) [Ratio] 46.8 fl High 35.1-43.9 [facility] Glomerular filtration rate ( GFR) estimation/1.73 sq m using serum, plasma, or whole bOrdered By: Faraz Merritt on 08-11-2024 GFR/1.73 sq M.predicted among non-blacks MDRD (S/P/Bld) [Vol rate/Area] 88 mL/min/{1.73_m2} >60 [facility] Comment on above: mL/min/1.73m2 CKD-EP I Creatinine Equation (2020) Hematocrit Auto (Bld) [Volum e fraction]Ordered By: Faraz Merritt on 08-11-2024 Hematocrit (Bld) [Volume fraction] 37.9 % 37-47 [facility] Hemoglobin measurementOrdere d By: Faraz Merritt on 08-11-2024 Hemoglobin (Bld) [Mass/Vol] 12.6 g/dL 12.0-15.0 [facility] Immature granulocytes/100 WB C Auto (Bld)Ordered By: Faraz Merritt 08-11-2024 Immature granulocytes/100 WBC (Bld) 0.500 % 0.0-0.9 [facility] Comment on above: IG% - Immature Granu locytes (promyelocytes, myelocytes and metamyelocytes) > 1% indicates that a LEFT SHIFT is Present. Laboratory - Chemistry and C hemistry - challengeOrdered By: Faraz Merritt on 08-11-2024 AST [Catalytic activity/Vol] 22 U/L <32 [facility] MCV (mean corpuscular volume ) determinationOrdered By: Faraz Merritt 08-11-2024 MCV (RBC) [Entitic vol] 92.4 fL 81-99 [facility] Mean corpuscular hemoglobin (MCH) determinationOrdered By: Faraz Merritt 08-11-2024 MCH (RBC) [Entitic mass] 30.7 pg 27.0-32.0 [facility] Mean corpuscular hemoglobin concentration (MCHC) determinationOrdered By: Faraz Merritt 08-11-2024 MCHC (RBC) [Mass/Vol] 33.2 g/dL 32-36 [facility] Mean platelet volume determi nationOrdered By: Faraz Merritt 08-11-2024 Platelet mean volume (Bld) [Entitic vol] 9.8 fL 6.2-12.0 [facility] Monocyte percentageOrdered B y: Faraz Merritt on 08-11-2024 Monocytes/100 WBC (Bld) 9.4 % 0-10 [facility] Neutrophil percentageOrdered By: Faraz Merritt on 08-11-2024 Neutrophils/100 WBC (Bld) 49.0 % 47-70 [facility] Nucleated red blood cell per centageOrdered By: Faraz Merritt 08-11-2024 Nucleated RBC/100 WBC (Bld) [Ratio] 0 % 0-5 [facility] Platelet countOrdered By: Karan Merritt on 08-11-2024 Platelets (Bld) [#/Vol] 268 10*3/uL 150-450 [facility] Potassium measurement (mass/ volume)Ordered By: Faraz Merritt on 08-11-2024 Potassium (Unsp spec) [Mass/Vol] 4.2 mmol/L 3.3-5.1 [facility] RBC Auto (Bld) [#/Vol]Ordere d By: Faraz Merritt on 08-11-2024 RBC (Bld) [#/Vol] 4.10 10*6/uL Low 4.2-5.4 [facility] Serum creatinine measurement (mass/volume)Ordered By: Faraz Merritt on 08-11-2024 Creatinine [Mass/Vol] 0.68 mg/dL Low 0.70-1.20 [facility] Serum globulin measurementOr dered By: Faraz Merritt 08-11-2024 Globulin (S) [Mass/Vol] 2.5 g/dL 2.2-4.2 [facility] Serum glucose measurement (m ass/volume)Ordered By: Faraz Merritt 08-11-2024 Glucose [Mass/Vol] 104 mg/dL High 70-99 [facility] Serum or plasma alanine mora otransferase (ALT) measurementOrdered By: Faraz Merritt 08-11-2024 ALT [Catalytic activity/Vol] 17 U/L <35 [facility] Serum or plasma albumin santi urement (mass/volume)Ordered By: Faraz Merritt 08-11-2024 Albumin [Mass/Vol] 4.1 g/dL 3.4-4.8 [facility] Serum or plasma albumin/glob ulin mass ratioOrdered By: Faraz Merritt 08-11-2024 Albumin/Globulin [Mass ratio] 1.7 {ratio} 0.9-2.4 [facility] Serum or plasma alkaline linus sphatase measurementOrdered By: Faraz Merritt 08-11-2024 ALP [Catalytic activity/Vol] 104 U/L 35-104 [facility] Serum or plasma calcium santi urement (mass/volume)Ordered By: Faraz Merritt 08-11-2024 Calcium [Mass/Vol] 9.6 mg/dL 7.6-11.0 [facility] Serum or plasma urea nitroge n measurement (mass/volume)Ordered By: Faraz Merritt on 08-11-2024 Urea nitrogen [Mass/Vol] 22 mg/dL High 4-19 [facility] Sodium levelOrdered By: Faraz Merritt on 08-11-2024 Sodium [Moles/Vol] 142 mmol/L 133-145 [facility] TSH DL <= 0.005 mIU/L QnOrde red By: Faraz Merritt on 08-11-2024 TSH Qn 1.950 uIU/mL 0.300-4.200 [facility] Thyroid Stim Hormone (TSH)on 08-11-2024 TSH 1.950 uIU/mL Normal 0.300-4.200 [facility] Comment on above: Performed By: #### L 506.1001, L500.4050, L100.0100, L501.9520 #### [facility] [address] [place], [place], [address] Total proteinOrdered By: Faraz Merritt on 08-11-2024 Protein [Mass/Vol] 6.6 g/dL 5.9-8.4 [facility] Vitamin D,25 Hydroxyon 08-11 Vitamin D 25-OH 22.8 ng/mL Low 30-100 [facility] Comment on above: Result Comment: Zoraida min D Status Deficiency: <20 ng/mL (50nmol/L) Insufficiency: 20-30 ng/mL (50-75 nmol/L) Sufficiency: 30-100 ng/mL (75-250 nmol/L) Toxicity: >100 ng/mL (>250 nmol/L) Performed By: #### L 506.1001, L500.4050, L100.0100, L501.9520 #### [facility] [address], [address] White blood cell (WBC) count Ordered By: Faraz Merritt on 08-11-2024 WBC (Bld) [#/Vol] 5.9 10*3/uL 4.4-11.0 [facility] CBC W/Diff, Automatedon 10-3 1-2024 Absolute Lymph 2.45 X10 3/uL Normal 0.83-4.51 [facility] Comment on above: Performed By: #### L 501.9520, M100.678, L501.9985, L506.1000, L100.0100, L500.4050, L500.4100 #### [facility] [address] [place], [address] Absolute Neut 4.3 X10 3/uL Normal 2.0-7.7 [facility] Comment on above: Performed By: #### L 501.9520, M100.678, L501.9985, L506.1000, L100.0100, L500.4050, L500.4100 #### [facility] [address] [place], [address] Basophils/100 WBC (Bld) 0.5 % Normal 0-1 [facility] Comment on above: Performed By: #### L 501.9520, M100.678, L501.9985, L506.1000, L100.0100, L500.4050, L500.4100 #### [facility] [address] [place], [address] Eosinophils/100 WBC (Bld) 2.0 % Normal 0-5 [facility] Comment on above: Performed By: #### L 501.9520, M100.678, L501.9985, L506.1000, L100.0100, L500.4050, L500.4100 #### [facility] [address] [place], [address] Erythrocyte distribution width (RBC) [Ratio] 13.9 % Normal 11.6-14.6 [facility] Comment on above: Performed By: #### L 501.9520, M100.678, L501.9985, L506.1000, L100.0100, L500.4050, L500.4100 #### [facility] [address] [place], [address] Hematocrit (Bld) [Volume fraction] 41.1 % Normal 37-47 [facility] Comment on above: Performed By: #### L 501.9520, M100.678, L501.9985, L506.1000, L100.0100, L500.4050, L500.4100 #### [facility] [address] [place], [address] Hemoglobin (Bld) [Mass/Vol] 13.1 g/dL Normal 12.0-15.0 [facility] Comment on above: Performed By: #### L 501.9520, M100.678, L501.9985, L506.1000, L100.0100, L500.4050, L500.4100 #### [facility] [address], [address] IG% 0.100 Normal 0.0-0.9 [facility] Comment on above: Result Comment: IG% - Immature Granulocytes (promyelocytes, myelocytes and metamyelocytes) > 1% indicates that a LEFT SHIFT is Present. Performed By: #### L 501.9520, M100.678, L501.9985, L506.1000, L100.0100, L500.4050, L500.4100 #### [facility] [address], [address] Lymphocytes/100 WBC (Bld) 32.3 % Normal 19-41 [facility] Comment on above: Performed By: #### L 501.9520, M100.678, L501.9985, L506.1000, L100.0100, L500.4050, L500.4100 #### [facility] [address] [place], [address] MCH (RBC) [Entitic mass] 29.4 pg Normal 27.0-32.0 [facility] Comment on above: Performed By: #### L 501.9520, M100.678, L501.9985, L506.1000, L100.0100, L500.4050, L500.4100 #### [facility] [address] [place], [address] MCHC (RBC) [Mass/Vol] 31.9 g/dL Low 32-36 [facility] Comment on above: Performed By: #### L 501.9520, M100.678, L501.9985, L506.1000, L100.0100, L500.4050, L500.4100 #### [facility] [address] [place], [address] MCV (RBC) [Entitic vol] 92.4 fL Normal 81-99 [facility] Comment on above: Performed By: #### L 501.9520, M100.678, L501.9985, L506.1000, L100.0100, L500.4050, L500.4100 #### [facility] [address] [place], [address] Monocytes/100 WBC (Bld) 8.4 % Normal 0-10 [facility] Comment on above: Performed By: #### L 501.9520, M100.678, L501.9985, L506.1000, L100.0100, L500.4050, L500.4100 #### [facility] [address] [place], [address] Neutrophils/100 WBC (Bld) 56.7 % Normal 47-70 [facility] Comment on above: Performed By: #### L 501.9520, M100.678, L501.9985, L506.1000, L100.0100, L500.4050, L500.4100 #### [facility] [address] [place], [address] Nucleated RBC (Bld) [#/Vol] 0 10*3/uL Normal 0-5 [facility] Comment on above: Performed By: #### L 501.9520, M100.678, L501.9985, L506.1000, L100.0100, L500.4050, L500.4100 #### [facility] [address] [place], [address] Platelet mean volume (Bld) [Entitic vol] 10.6 fL Normal 6.2-12.0 [facility] Comment on above: Performed By: #### L 501.9520, M100.678, L501.9985, L506.1000, L100.0100, L500.4050, L500.4100 #### [facility] [address] [place], [address] Platelets (Bld) [#/Vol] 311 10*3/uL Normal 150-450 [facility] Comment on above: Performed By: #### L 501.9520, M100.678, L501.9985, L506.1000, L100.0100, L500.4050, L500.4100 #### [facility] [address] [place], [address] RBC (Bld) [#/Vol] 4.45 10*6/uL Normal 4.2-5.4 [facility] Comment on above: Performed By: #### L 501.9520, M100.678, L501.9985, L506.1000, L100.0100, L500.4050, L500.4100 #### [facility] [address] [place], [address] RDW SD 47.4 fl High 35.1-43.9 [facility] Comment on above: Performed By: #### L 501.9520, M100.678, L501.9985, L506.1000, L100.0100, L500.4050, L500.4100 #### [facility] [address] [place], [address] WBC (Bld) [#/Vol] 7.6 10*3/uL Normal 4.4-11.0 [facility] Comment on above: Performed By: #### L 501.9520, M100.678, L501.9985, L506.1000, L100.0100, L500.4050, L500.4100 #### [facility] [address] [place], [address] Comprehensive Metabolic Prof ilon 02-12-2024 Albumin [Mass/Vol] 3.9 g/dL Normal 3.2-5.0 [facility] Comment on above: Performed By: #### L 503.7505, L100.0100, L501.9520, L500.4050 #### [facility] [address] [place], [address] Albumin/Globulin [Mass ratio] 1.2 {ratio} Normal 0.9-2.4 [facility] Comment on above: Performed By: #### L 503.7505, L100.0100, L501.9520, L500.4050 #### [facility] [address] [place], [address] ALK P 101 U/L Normal 45-117 [facility] Comment on above: Performed By: #### L 503.7505, L100.0100, L501.9520, L500.4050 #### [facility] [address] [place], [address] ALT [Catalytic activity/Vol] 20 U/L Normal 13-56 [facility] Comment on above: Performed By: #### L 503.7505, L100.0100, L501.9520, L500.4050 #### [facility] [address] [place], [address] AST [Catalytic activity/Vol] 19 U/L Normal 15-37 [facility] Comment on above: Performed By: #### L 503.7505, L100.0100, L501.9520, L500.4050 #### [facility] [address] [place], [address] Bilirubin [Mass/Vol] 0.40 mg/dL Normal 0.20-1.00 [facility] Comment on above: Result Comment: For patients on eltrombopag therapy, use of Dimension [place] TBIL is not recommended. Performed By: #### L [id number], L100.0100, L501.9520, L500.4050 #### [facility] [address] [place], [address] BUN/CRE 34.5 RATIO High 10-20 [facility] Comment on above: Performed By: #### L 503.7505, L100.0100, L501.9520, L500.4050 #### [facility] [address] [place], [address] CA,Total 9.7 mg/dL Normal 8.5-10.1 [facility] Comment on above: Performed By: #### L 503.7505, L100.0100, L501.9520, L500.4050 #### [facility] [address] [place], [address] Chloride [Moles/Vol] 112 mmol/L High 98-107 [facility] Comment on above: Performed By: #### L 503.7505, L100.0100, L501.9520, L500.4050 #### [facility] [address] [place], [address] CO2 [Moles/Vol] 24.0 mmol/L Normal 21.0-32.0 [facility] Comment on above: Performed By: #### L 503.7505, L100.0100, L501.9520, L500.4050 #### [facility] [address] [place], [address] Creatinine [Mass/Vol] 0.90 mg/dL Normal 0.55-1.02 [facility] Comment on above: Result Comment: The validity of the calculated GFR GFRAA in patients over 70 years has not been determined. Clinical correlation is essential. Performed By: #### L 503.7505, L100.0100, L501.9520, L500.4050 #### [facility] [address] [place], [address] EST GFR - AA 78 mL/min Normal >60 [facility] Comment on above: Result Comment: Afri can [place] GFR Calc Performed By: #### L 503.7505, L100.0100, L501.9520, L500.4050 #### [facility] [address] [place], [address] GAP 4 Low 5-15 [facility] Comment on above: Performed By: #### L 503.7505, L100.0100, L501.9520, L500.4050 #### [facility] [address] [place], [address] GFR/1.73 sq M.predicted among non-blacks MDRD (S/P/Bld) [Vol rate/Area] 64 mL/min/{1.73_m2} Normal >60 [facility] Comment on above: Result Comment: Non- GFR Calc Performed By: #### L 503.7505, L100.0100, L501.9520, L500.4050 #### [facility] [address] [place], [address] Globulin (S) [Mass/Vol] 3.3 g/dL Normal 2.2-4.2 [facility] Comment on above: Performed By: #### L 503.7505, L100.0100, L501.9520, L500.4050 #### [facility] [address] [place], [address] Glucose [Mass/Vol] 110 mg/dL High 74-106 [facility] Comment on above: Result Comment: Fast ing Glucose result from 100 to 125 mg/dL suggests IMPAIRED HOMEOSTASIS per A.D.A. criteria. Performed By: #### L 503.7505, L100.0100, L501.9520, L500.4050 #### [facility] [address] [place], [address] Potassium [Moles/Vol] 4.2 mmol/L Normal 3.5-5.1 [facility] Comment on above: Performed By: #### L 503.7505, L100.0100, L501.9520, L500.4050 #### [facility] [address] [place], [address] Sodium [Moles/Vol] 140 mmol/L Normal 136-145 [facility] Comment on above: Performed By: #### L 503.7505, L100.0100, L501.9520, L500.4050 #### [facility] [address] [place], [address] T PROT 7.2 g/dL Normal 6.4-8.2 [facility] Comment on above: Performed By: #### L 503.7505, L100.0100, L501.9520, L500.4050 #### [facility] [address] [place], [address] Urea nitrogen [Mass/Vol] 31 mg/dL High 7-18 [facility] Comment on above: Performed By: #### L 503.7505, L100.0100, L501.9520, L500.4050 #### [facility] [address] [place], [address] Hemoglobin A1con 02-12-2024 HbA1c (Bld) [Mass fraction] 6.2 % High 3.8-5.6 [facility] Comment on above: Result Comment: Norm al < 5.7 % Prediabetic 5.7 - 6.4 % Diabetic >or= 6.5 % Please note range changes. Performed By: #### L 503.7505, L100.0100, L501.9520, L500.4050 #### [facility] [address] [place], [address] Lipid Profileon 02-12-2024 Cholesterol [Mass/Vol] 151 mg/dL Normal 200 [facility] Comment on above: Result Comment: <200 mg/dL Desirable 200-240 mg/dL Borderline >240 mg/dL High Risk Performed By: #### L 503.7505, L100.0100, L501.9520, L500.4050 #### [facility] [address] [place], [address] Cholesterol in HDL [Mass/Vol] 77 mg/dL Normal [facility] Comment on above: Result Comment: The drugs N-Acetylcysteine and Metamizole may falsely depress this assay. Reference Range HDL <40 mg/dL Low HDL Cholesterol HDL >or= 60 mg/dL High HDL Cholesterol Performed By: #### L 503.7505, L100.0100, L501.9520, L500.4050 #### [facility] [address] [place], [address] Cholesterol in LDL [Mass/Vol] 57 mg/dL Normal 0-130 [facility] Comment on above: Performed By: #### L 503.7505, L100.0100, L501.9520, L500.4050 #### [facility] [address] [place], [address] Cholesterol in VLDL [Mass/Vol] 17 mg/dL Normal 5-40 [facility] Comment on above: Performed By: #### L 503.7505, L100.0100, L501.9520, L500.4050 #### [facility] [address], [address] Triglyceride [Mass/Vol] 85 mg/dL Normal [facility] Comment on above: Result Comment: The drugs N-Acetylcysteine and Metamizole may falsely depress this assay. Serum Triglycerides Reference Interval Normal <150 mg/dL Borderline high 150 - 199 mg/dL High 200 - 499 mg/dL Very High > or = 500 mg/dL Performed By: #### L 503.7505, L100.0100, L501.9520, L500.4050 #### [facility] [address] [place], [address] M100.678on 02-12-2024 M100.678 Pending SARS-CoV-2 (COVID 19) Negative INFLUENZA A Negative INFLUENZA B Negative RSV PCR Negative Normal [facility] Comment on above: Performed By: #### L 503.7505, L100.0100, L501.9520, L500.4050 #### [facility] [address], [address] Thyroid Stim Hormone (TSH)on 02-12-2024 TSH 3.260 uIU/mL Normal 0.358-3.740 [facility] Comment on above: Performed By: #### L 503.7505, L100.0100, L501.9520, L500.4050 #### [facility] [address] [place], [address] Vitamin D,25 Hydroxyon 02-11 Vitamin D 25-OH 30.1 ng/mL Normal [facility] Comment on above: Result Comment: Zoraida min D 25(OH) Status Range Deficiency <20 ng/mL (50nmol/L) Insufficiency 20 - 30 ng/mL (50 - 75 nmol/L) Sufficiency 30 - 100 ng/mL (75 - 250 nmol/L) Toxicity >100 ng/mL (>250 nmol/L) Performed By: #### L 501.9520, M100.678, L501.9985, L506.1000, L100.0100, L500.4050, L500.4100 #### [facility] [place], [address] Absolute lymphocyte countOrd ered By: Faraz Merritt on 08-12-2023 Lymphocytes Auto (Unsp spec) [#/Vol] 2.17 10*3/uL 0.83-4.51 [facility] Automated lymphocyte count a s percentage of total leukocytesOrdered By: Faraz Merritt on 08-12-2023 Lymphocytes/100 WBC Auto (Unsp spec) 32.1 % 19-41 [facility] Basophil percentageOrdered B y: Faraz Merritt on 08-12-2023 Basophils/100 WBC (Bld) 0.4 % 0-1 [facility] Bilirubin [Mass/Vol] 0.30 mg/dL 0.20-1.00 [facility] Comment on above: For patients on eltr ombopag therapy, use of Dimension [place] TBIL is not recommended. Chloride [Moles/Vol] 109 mmol/L 98-107 [facility] Cholesterol [Mass/Vol] 148 mg/dL <200 [facility] Comment on above: <200 mg/dL Desirable 200-240 mg/dL Borderline >240 mg/dL High Risk Eosinophils/100 WBC (Bld) 3.0 % 0-5 [facility] Glucose [Mass/Vol] 103 mg/dL 74-106 [facility] Comment on above: Fasting Glucose resu lt from 100 to 125 mg/dL suggests IMPAIRED HOMEOSTASIS per A.D.A. criteria. Hemoglobin (Bld) [Mass/Vol] 12.7 g/dL 12.0-15.0 [facility] Monocytes/100 WBC (Bld) 8.1 % 0-10 [facility] Neutrophils (Bld) [#/Vol] 3.8 10*3/uL 2.0-7.7 [facility] Neutrophils/100 WBC (Bld) 56.3 % 47-70 [facility] Potassium [Moles/Vol] 4.1 mmol/L 3.5-5.1 [facility] Protein [Mass/Vol] 6.8 g/dL 6.4-8.2 [facility] Sodium [Moles/Vol] 141 mmol/L 136-145 [facility] Triglyceride [Mass/Vol] 84 mg/dL <199 [facility] Comment on above: The drugs N-Acetylcy steine and Metamizole may falsely depress this assay.Serum Triglycerides Reference Interval Normal <150 mg/dL Borderline high 150 - 199 mg/dL High 200 - 499 mg/dL Very High > or = 500 mg/dL WBC (Bld) [#/Vol] 6.8 10*3/uL 4.4-11.0 [facility] Determination of erythrocyte mean corpuscular volume (MCV)Ordered By: Faraz Merritt on 08-12-2023 MCV (RBC) [Entitic vol] 89.6 fL 81-99 [facility] Erythrocyte distribution wid th ratioOrdered By: [facility] Erythrocyte distribution width (RBC) [Ratio] 14.4 % 11.6-14.6 [facility] Erythrocyte distribution wid th standard deviationOrdered By: Faraz Merritt on 08-12-2023 Erythrocyte distribution width (RBC) [Entitic vol] 46.9 fL 35.1-43.9 [facility] Hematocrit Auto (Bld) [Volum e fraction]Ordered By: Faraz René 08-12-2023 Hematocrit (Bld) [Volume fraction] 38.7 % 37-47 [facility] Immature granulocytes/100 WB C Auto (Bld)Ordered By: [facility] 08-12-2023 Immature granulocytes/100 WBC (Bld) 0.100 % 0.0-0.9 [facility] Comment on above: IG% - Immature Granu locytes (promyelocytes, myelocytes and metamyelocytes) > 1% indicates that a LEFT SHIFT is Present. Laboratory - Chemistry and C hemistry - challengeOrdered By: Faraz Merritt on 08-12-2023 Albumin/Globulin [Mass ratio] 1.2 {ratio} 0.9-2.4 [facility] ALP [Catalytic activity/Vol] 105 U/L 45-117 [facility] ALT [Catalytic activity/Vol] 21 U/L 13-56 [facility] Cholesterol in HDL [Mass/Vol] 64 mg/dL >40 [facility] Comment on above: The drugs N-Acetylcy steine and Metamizole may falsely depress this assay. Reference Range HDL <40 mg/dL Low HDL Cholesterol HDL >or= 60 mg/dL High HDL Cholesterol Cholesterol in LDL [Mass/Vol] 67 mg/dL 0-130 [facility] CO2 [Moles/Vol] 29.0 mmol/L 21.0-32.0 [facility] Globulin (S) [Mass/Vol] 3.1 g/dL 2.2-4.2 [facility] Urea nitrogen/Creatinine [Mass ratio] 32.0 mg/mg 10-20 [facility] - Hematology and Cell countsOrdered By: Faraz Merritt on 08-12-2023 MCH (RBC) [Entitic mass] 29.4 pg 27.0-32.0 [facility] MCHC (RBC) [Mass/Vol] 32.8 g/dL 32-36 [facility] Nucleated RBC/100 WBC (Bld) [Ratio] 0 % 0-5 [facility] Platelet mean volume (Bld) [Entitic vol] 10.1 fL 6.2-12.0 [facility] Platelets (Bld) [#/Vol] 334 10*3/uL 150-450 [facility] No Panel InformationOrdered By: Faraz Merritt on 08-12-2023 Estimated GFR (MDRD) Amer 101 mL/min >60 [facility] Comment on above: GFR Calc Estimated GFR (MDRD) Non-Af Amer 83 mL/min >60 [facility] Comment on above: Non- GFR Calc Vitamin D 25-Hydroxy 34.0 ng/mL [facility] Comment on above: Vitamin D 25(OH) Sta tus Range Deficiency <20 ng/mL (50nmol/L) Insufficiency 20 - 30 ng/mL (50 - 75 nmol/L) Sufficiency 30 - 100 ng/mL (75 - 250 nmol/L) Toxicity >100 ng/mL (>250 nmol/L) VLDL Cholesterol 17 mg/dL 5-40 [facility] RBC Auto (Bld) [#/Vol]Ordere d By: Faraz Merritt on 08-12-2023 RBC (Bld) [#/Vol] 4.32 10*6/uL 4.2-5.4 [facility] Serum or plasma calcium santi urement (mass/volume)Ordered By: Faraz Merritt on 08-12-2023 Calcium [Mass/Vol] 9.4 mg/dL 8.5-10.1 [facility] Serum or plasma creatinine m easurement (mass/volume)Ordered By: Faraz Merritt on 08-12-2023 Creatinine [Mass/Vol] 0.72 mg/dL 0.55-1.02 [facility] Comment on above: The validity of the calculated GFR & GFRAA in patients over 70 years has not been determined. Clinical correlation is essential. Serum or plasma thyroid stim ulating hormone (TSH) measurement (units/volume)Ordered By: Faraz Merritt on 08-12-2023 TSH Qn 1.83 uIU/mL 0.358-3.74 [facility] Serum or plasma urea nitroge n measurement (mass/volume)Ordered By: Faraz Merritt on 08-12-2023 Urea nitrogen [Mass/Vol] 23 mg/dL 7-18 [facility] Thin prep Papanicolaou smear with manual screeningOrdered By: Faraz Merritt on 08-12-2023 Thin prep Papanicolaou smear with manual screening 3.7 g/dL 3.2-5.0 [facility] Thin prep Papanicolaou smear with manual screening 18 U/L 15-37 [facility] Thin prep Papanicolaou smear with manual screening 3 5-15 [facility] Whole blood hemoglobin A1c/t otal hemoglobin ratio (mass fraction)Ordered By: Faraz Merritt on 08-12-2023 HbA1c (Bld) [Mass fraction] 5.7 % 3.8-5.6 [facility] Comment on above: Normal < 5.7 % Predi abetic 5.7 - 6.4 % Diabetic >or= 6.5 % Please note range changes. Absolute lymphocyte countOrd ered By: Faraz Merritt on 02-10-2023 Lymphocytes Auto (Unsp spec) [#/Vol] 1.78 10*3/uL 0.83-4.51 [facility] Basophil percentageOrdered B y: Faraz Merritt on 02-10-2023 Basophils/100 WBC (Bld) 0.9 % 0-1 [facility] Bilirubin [Mass/Vol] 0.40 mg/dL 0.20-1.00 [facility] Comment on above: For patients on eltr ombopag therapy, use of Dimension [place] TBIL is not recommended. Chloride [Moles/Vol] 103 mmol/L 98-107 [facility] Eosinophils/100 WBC (Bld) 4.5 % 0-5 [facility] Glucose [Mass/Vol] 103 mg/dL 74-106 [facility] Comment on above: Fasting Glucose resu lt from 100 to 125 mg/dL suggests IMPAIRED HOMEOSTASIS per A.D.A. criteria. Neutrophils (Bld) [#/Vol] 3.0 10*3/uL 2.0-7.7 [facility] Neutrophils/100 WBC (Bld) 52.8 % 47-70 [facility] Potassium [Moles/Vol] 3.5 mmol/L 3.5-5.1 [facility] Protein [Mass/Vol] 7.4 g/dL 6.4-8.2 [facility] Sodium [Moles/Vol] 136 mmol/L 136-145 [facility] WBC (Bld) [#/Vol] 5.6 10*3/uL 4.4-11.0 [facility] Blood erythrocytes count (nu mber/volume)Ordered By: Faraz Merritt on 02-10-2023 RBC (Bld) [#/Vol] 4.46 10*6/uL 4.2-5.4 [facility] Blood hemoglobin measurement (mass/volume)Ordered By: Faraz Merritt on 02-10-2023 Hemoglobin (Bld) [Mass/Vol] 13.0 g/dL 12.0-15.0 [facility] Blood lymphocytes/100 leukoc ytesOrdered By: Faraz Merritt on 02-10-2023 Lymphocytes/100 WBC (Bld) 31.9 % 19-41 [facility] Blood monocytes/100 leukocyt esOrdered By: Faraz Merritt on 02-10-2023 Monocytes/100 WBC (Bld) 9.7 % 0-10 [facility] Blood platelet mean volumeOr dered By: Faraz Merritt on 02-10-2023 Platelet mean volume (Bld) [Entitic vol] 10.2 fL 6.2-12.0 [facility] Determination of erythrocyte mean corpuscular volume (MCV)Ordered By: Faraz Merritt on 02-10-2023 MCV (RBC) [Entitic vol] 89.7 fL 81-99 [facility] Hematocrit Auto (Bld) [Volum e fraction]Ordered By: [facility] on 02-10-2023 Hematocrit (Bld) [Volume fraction] 40.0 % 37-47 [facility] - Chemistry and C hemistry - challengeOrdered By: [facility] 02-10-2023 ALP [Catalytic activity/Vol] 119 U/L 45-117 [facility] ALT [Catalytic activity/Vol] 22 U/L 13-56 [facility] CO2 [Moles/Vol] 27.0 mmol/L 21.0-32.0 [facility] Globulin (S) [Mass/Vol] 3.7 g/dL 2.2-4.2 [facility] Urea nitrogen/Creatinine [Mass ratio] 17.2 mg/mg 10-20 [facility] - Hematology and Cell countsOrdered By: [facility] on 02-10-2023 Erythrocyte distribution width (RBC) [Entitic vol] 46.0 fL 35.1-43.9 [facility] Erythrocyte distribution width (RBC) [Ratio] 14.0 % 11.6-14.6 [facility] Immature granulocytes/100 WBC (Bld) 0.200 % 0.0-0.9 [facility] Comment on above: IG% - Immature Granu locytes (promyelocytes, myelocytes and metamyelocytes) > 1% indicates that a LEFT SHIFT is Present. MCH (RBC) [Entitic mass] 29.1 pg 27.0-32.0 [facility] Nucleated RBC/100 WBC (Bld) [Ratio] 0 % 0-5 [facility] MCHC Auto (RBC) [Mass/Vol]Or dered By: [facility] 02-10-[facility]23 MCHC (RBC) [Mass/Vol] 32.5 g/dL 32-36 [facility] No Panel InformationOrdered By: Faraz Merritt on 02-10-2023 Estimated GFR (MDRD) Amer 95 mL/min >60 [facility] Comment on above: GFR Calc Estimated GFR (MDRD) Non-Af Amer 78 mL/min >60 [facility] Comment on above: Non- GFR Calc Thyroid Stimulating Hormone (TSH) 2.20 uIU/mL 0.358-3.74 [facility] Vitamin D 25-Hydroxy 45.0 ng/mL [facility] Comment on above: Vitamin D 25(OH) Sta tus Range Deficiency <20 ng/mL (50nmol/L) Insufficiency 20 - 30 ng/mL (50 - 75 nmol/L) Sufficiency 30 - 100 ng/mL (75 - 250 nmol/L) Toxicity >100 ng/mL (>250 nmol/L) Platelets bldOrdered By: Faraz Merritt on 02-10-2023 Platelets (Bld) [#/Vol] 366 10*3/uL 150-450 [facility] Serum or plasma albumin santi urement (mass/volume)Ordered By: Faraz Merritt on 02-10-2023 Albumin [Mass/Vol] 3.7 g/dL 3.2-5.0 [facility] Serum or plasma albumin/glob ulin mass ratioOrdered By: Faraz Merritt on 02-10-2023 Albumin/Globulin [Mass ratio] 1.0 {ratio} 0.9-2.4 [facility] Serum or plasma calcium santi urement (mass/volume)Ordered By: Faraz Merritt on 02-10-2023 Calcium [Mass/Vol] 9.3 mg/dL 8.5-10.1 [facility] Serum or plasma creatinine m easurement (mass/volume)Ordered By: Faraz Merritt on 02-10-2023 Creatinine [Mass/Vol] 0.76 mg/dL 0.55-1.02 [facility] Comment on above: The validity of the calculated GFR & GFRAA in patients over 70 years has not been determined. Clinical correlation is essential. Serum or plasma urea nitroge n measurement (mass/volume)Ordered By: Faraz Merritt on 02-10-2023 Urea nitrogen [Mass/Vol] 13 mg/dL 7-18 [facility] Thin prep Papanicolaou smear with manual screeningOrdered By: Faraz Merritt on 02-10-2023 Thin prep Papanicolaou smear with manual screening 20 U/L 15-37 [facility] Thin prep Papanicolaou smear with manual screening 6 5-15 [facility] Absolute lymphocyte countOrd ered By: Dr. Merritt on 08-07-2022 Lymphocytes Auto (Unsp spec) [#/Vol] 2.34 10*3/uL 0.83-4.51 [facility] Basophil percentageOrdered B y: Dr. Merritt on 08-07-2022 Basophils/100 WBC (Bld) 0.6 % 0-1 [facility] Bilirubin [Mass/Vol] 0.20 mg/dL 0.20-1.00 [facility] Comment on above: For patients on eltr ombopag therapy, use of Dimension [place] TBIL is not recommended. Chloride [Moles/Vol] 104 mmol/L 98-107 [facility] Eosinophils/100 WBC (Bld) 7.1 % 0-5 [facility] Glucose [Mass/Vol] 89 mg/dL 74-106 [facility] Neutrophils (Bld) [#/Vol] 3.0 10*3/uL 2.0-7.7 [facility] Neutrophils/100 WBC (Bld) 47.4 % 47-70 [facility] Potassium [Moles/Vol] 3.9 mmol/L 3.5-5.1 [facility] Protein [Mass/Vol] 7.5 g/dL 6.4-8.2 [facility] Sodium [Moles/Vol] 134 mmol/L 136-145 [facility] WBC (Bld) [#/Vol] 6.4 10*3/uL 4.4-11.0 [facility] Blood erythrocytes count (nu mber/volume)Ordered By: Dr. Merritt on 08-07-2022 RBC (Bld) [#/Vol] 4.33 10*6/uL 4.2-5.4 [facility] Blood hemoglobin measurement (mass/volume)Ordered By: Dr. Merritt on 08-07-2022 Hemoglobin (Bld) [Mass/Vol] 12.8 g/dL 12.0-15.0 [facility] Blood lymphocytes/100 leukoc ytesOrdered By: Dr. Merritt on 08-07-2022 Lymphocytes/100 WBC (Bld) 36.8 % 19-41 [facility] Blood monocytes/100 leukocyt esOrdered By: Dr. Merritt on 08-07-2022 Monocytes/100 WBC (Bld) 7.9 % 0-10 [facility] Blood platelet mean volumeOr dered By: Dr. Merritt on 08-07-2022 Platelet mean volume (Bld) [Entitic vol] 10.3 fL 6.2-12.0 [facility] Determination of erythrocyte mean corpuscular volume (MCV)Ordered By: Dr. Merritt on 08-07-2022 MCV (RBC) [Entitic vol] 88.9 fL 81-99 [facility] Hematocrit Auto (Bld) [Volum e fraction]Ordered By: Dr. Merritt on 08-07-2022 Hematocrit (Bld) [Volume fraction] 38.5 % 37-47 [facility] - Chemistry and C hemistry - challengeOrdered By: Dr. Merritt on 08-07-2022 ALP [Catalytic activity/Vol] 121 U/L 45-117 [facility] ALT [Catalytic activity/Vol] 24 U/L 13-56 [facility] CO2 [Moles/Vol] 27.0 mmol/L 21.0-32.0 [facility] Globulin (S) [Mass/Vol] 3.5 g/dL 2.2-4.2 [facility] Urea nitrogen/Creatinine [Mass ratio] 19.1 mg/mg 10-20 [facility] - Hematology and Cell countsOrdered By: Dr. Merritt on 08-07-2022 Erythrocyte distribution width (RBC) [Entitic vol] 45.9 fL 35.1-43.9 [facility] Erythrocyte distribution width (RBC) [Ratio] 14.2 % 11.6-14.6 [facility] Immature granulocytes/100 WBC (Bld) 0.200 % 0.0-0.9 [facility] Comment on above: IG% - Immature Granu locytes (promyelocytes, myelocytes and metamyelocytes) > 1% indicates that a LEFT SHIFT is Present. MCH (RBC) [Entitic mass] 29.6 pg 27.0-32.0 [facility] Nucleated RBC/100 WBC (Bld) [Ratio] 0 % 0-5 [facility] MCHC Auto (RBC) [Mass/Vol]Or dered By: Dr. Merritt on 08-07-2022 MCHC (RBC) [Mass/Vol] 33.2 g/dL 32-36 [facility] No Panel InformationOrdered By: Dr. Merritt on 08-07-2022 Estimated GFR (MDRD) Amer 99 mL/min >60 [facility] Comment on above: GFR Calc Estimated GFR (MDRD) Non-Af Amer 81 mL/min >60 [facility] Comment on above: Non- GFR Calc Thyroid Stimulating Hormone (TSH) 2.33 uIU/mL 0.358-3.74 [facility] Vitamin D 25-Hydroxy 51.7 ng/mL [facility] Comment on above: Vitamin D 25(OH) Sta tus Range Deficiency <20 ng/mL (50nmol/L) Insufficiency 20 - 30 ng/mL (50 - 75 nmol/L) Sufficiency 30 - 100 ng/mL (75 - 250 nmol/L) Toxicity >100 ng/mL (>250 nmol/L) Platelets bldOrdered By: Dr. Merritt on 08-07-2022 Platelets (Bld) [#/Vol] 370 10*3/uL 150-450 [facility] Serum or plasma albumin santi urement (mass/volume)Ordered By: Dr. Merritt on 08-07-2022 Albumin [Mass/Vol] 4.0 g/dL 3.2-5.0 [facility] Serum or plasma albumin/glob ulin mass ratioOrdered By: Dr. Merritt on 08-07-2022 Albumin/Globulin [Mass ratio] 1.1 {ratio} 0.9-2.4 [facility] Serum or plasma calcium santi urement (mass/volume)Ordered By: Dr. Merritt on 08-07-2022 Calcium [Mass/Vol] 9.8 mg/dL 8.5-10.1 [facility] Serum or plasma creatinine m easurement (mass/volume)Ordered By: Dr. Merritt on 08-07-2022 Creatinine [Mass/Vol] 0.73 mg/dL 0.55-1.02 [facility] Comment on above: The validity of the calculated GFR & GFRAA in patients over 70 years has not been determined. Clinical correlation is essential. Serum or plasma urea nitroge n measurement (mass/volume)Ordered By: Dr. Merritt on 08-07-2022 Urea nitrogen [Mass/Vol] 14 mg/dL 7-18 [facility] Thin prep Papanicolaou smear with manual screeningOrdered By: Dr. Merritt on 08-07-2022 Thin prep Papanicolaou smear with manual screening 17 U/L 15-37 [facility] Thin prep Papanicolaou smear with manual screening 3 5-15 [facility] Laboratory - Microbiology an d Antimicrobial susceptibilityon 03-22-2022 SARS-CoV-2 (COVID-19) RNA JUSTO+probe Ql (Unsp spec) Not detected Not Detect [facility] Work Phone: Comment on above: Normal Reference Ran ge: Not DetectedMethod:(RT-PCR) real-time reverse transcriptase PCRLuminex [employer] Instrument*The Food and Drug Administration (FDA) has issued an Emergency Use Authorization (EAU) for the [employer] SARS-CoV-2 Assay for the rapid detection of the virus that causes COVID-19. This test has been validated, but the FDAs independent review of this validation is pending.*Negative results do not preclude infection and should not be used as the sole basis for treatment or patient management. Optimum specimen types and timing for peak viral levels during infections caused by SARS-CoV-2 have not been determined. Collection of multiple specimens from the same patient may be necessary to detect the virus. The possibility of a false negative result should be considered if the patient has clinical presentation or has had recent exposure. Absolute lymphocyte counton 02-06-2022 Lymphocytes Auto (Unsp spec) [#/Vol] 2.77 10*3/uL 0.83-4.51 [facility] Work Phone: Basophil percentageon 2021 Basophils/100 WBC (Bld) 0.7 % 0-1 [facility] Work Phone: Bilirubin [Mass/Vol] 0.30 mg/dL 0.20-1.00 [facility] Work Phone: Comment on above: For patients on eltr ombopag therapy, use of Dimension [place] TBIL is not recommended. Chloride [Moles/Vol] 109 mmol/L 98-107 [facility] Work Phone: Eosinophils/100 WBC (Bld) 5.3 % 0-5 [facility] Work Phone: [phone] Glucose [Mass/Vol] 119 mg/dL 74-106 [facility] Work Phone: Comment on above: Fasting Glucose resu lt from 100 to 125 mg/dL suggests IMPAIRED HOMEOSTASIS per A.D.A. criteria. Neutrophils (Bld) [#/Vol] 2.2 10*3/uL 2.0-7.7 [facility] Work Phone: Neutrophils/100 WBC (Bld) 37.8 % 47-70 [facility] Work Phone: [phone] Potassium [Moles/Vol] 3.8 mmol/L 3.5-5.1 [facility] Work Phone: [phone] Protein [Mass/Vol] 6.9 g/dL 6.4-8.2 [facility] Work Phone: [phone] Sodium [Moles/Vol] 141 mmol/L 136-145 [facility] Work Phone: [phone] WBC (Bld) [#/Vol] 5.9 10*3/uL 4.4-11.0 [facility] Work Phone: Blood erythrocytes count (nu mber/volume)on 02-06-2022 RBC (Bld) [#/Vol] 4.17 10*6/uL 4.2-5.4 [facility] Work Phone: [phone] Blood hemoglobin measurement (mass/volume)on 02-06-2022 Hemoglobin (Bld) [Mass/Vol] 12.1 g/dL 12.0-15.0 [facility] Work Phone: Blood lymphocytes/100 leukoc yteson 02-06-2022 Lymphocytes/100 WBC (Bld) 47.3 % 19-41 [facility] Work Phone: Blood monocytes/100 leukocyt eson 02-06-2022 Monocytes/100 WBC (Bld) 8.7 % 0-10 [facility] Work Phone: Blood platelet mean volumeon 02-06-2022 Platelet mean volume (Bld) [Entitic vol] 10.0 fL 6.2-12.0 [facility] Work Phone: Determination of erythrocyte mean corpuscular volume (MCV)on 02-06-2022 MCV (RBC) [Entitic vol] 89.7 fL 81-99 [facility] Work Phone: Hematocrit Auto (Bld) [Volum e fraction]on 02-06-2022 Hematocrit (Bld) [Volume fraction] 37.4 % 37-47 [facility] Work Phone: Laboratory - Chemistry and C hemistry - challengeon 02-06-2022 ALP [Catalytic activity/Vol] 93 U/L 45-117 [facility] Work Phone: ALT [Catalytic activity/Vol] 17 U/L 13-56 [facility] Work Phone: CO2 [Moles/Vol] 26.0 mmol/L 21.0-32.0 [facility] Work Phone: Globulin (S) [Mass/Vol] 3.3 g/dL 2.2-4.2 [facility] Work Phone: Urea nitrogen/Creatinine [Mass ratio] 26.9 mg/mg 10-20 [facility] Work Phone: Laboratory - Hematology and Cell countson 02-06-2022 Erythrocyte distribution width (RBC) [Entitic vol] 46.5 fL 35.1-43.9 [facility] Work Phone: Erythrocyte distribution width (RBC) [Ratio] 14.2 % 11.6-14.6 [facility] Work Phone: Immature granulocytes/100 WBC (Bld) 0.200 % 0.0-0.9 [facility] Work Phone: Comment on above: IG% - Immature Granu locytes (promyelocytes, myelocytes and metamyelocytes) > 1% indicates that a LEFT SHIFT is Present. MCH (RBC) [Entitic mass] 29.0 pg 27.0-32.0 [facility] Work Phone: Nucleated RBC/100 WBC (Bld) [Ratio] 0 % 0-5 [facility] Work Phone: MCHC Auto (RBC) [Mass/Vol]on 02-06-2022 MCHC (RBC) [Mass/Vol] 32.4 g/dL 32-36 [facility] Work Phone: No Panel Informationon 02-06 Estimated GFR (MDRD) Amer 83 mL/min >60 [facility] Work Phone: Comment on above: GFR Calc Estimated GFR (MDRD) Non-Af Amer 68 mL/min >60 [facility] Work Phone: Comment on above: Non- GFR Calc Thyroid Stimulating Hormone (TSH) 1.39 uIU/mL 0.358-3.74 [facility] Work Phone: Vitamin D 25-Hydroxy 37.0 ng/mL [facility] Work Phone: Comment on above: Vitamin D 25(OH) Sta tus Range Deficiency <20 ng/mL (50nmol/L) Insufficiency 20 - 30 ng/mL (50 - 75 nmol/L) Sufficiency 30 - 100 ng/mL (75 - 250 nmol/L) Toxicity >100 ng/mL (>250 nmol/L) Platelets bldon 02-06-2022 Platelets (Bld) [#/Vol] 362 10*3/uL 150-450 [facility] Work Phone: Serum or plasma albumin santi urement (mass/volume)on 02-06-2022 Albumin [Mass/Vol] 3.6 g/dL 3.2-5.0 [facility] Work Phone: Serum or plasma albumin/glob ulin mass ratioon 02-06-2022 Albumin/Globulin [Mass ratio] 1.1 {ratio} 0.9-2.4 [facility] Work Phone: Serum or plasma calcium santi urement (mass/volume)on 02-06-2022 Calcium [Mass/Vol] 10.0 mg/dL 8.5-10.1 [facility] Work Phone: Serum or plasma creatinine m easurement (mass/volume)on 02-06-2022 Creatinine [Mass/Vol] 0.86 mg/dL 0.55-1.02 [facility] Work Phone: Comment on above: The validity of the calculated GFR & GFRAA in patients over 70 years has not been determined. Clinical correlation is essential. Serum or plasma urea nitroge n measurement (mass/volume)on 02-06-2022 Urea nitrogen [Mass/Vol] 23 mg/dL 7-18 [facility] Work Phone: Thin prep Papanicolaou smear with manual screeningon 02-06-2022 Thin prep Papanicolaou smear with manual screening 16 U/L 15-37 [facility] Work Phone: Thin prep Papanicolaou smear with manual screening 6 5-15 [facility] Work Phone: No Panel Information Influenza Types A,B Direct FA (SHONDA) [facility] Work Phone: RSV Ag EIA RSV Ag Immune stain Ql (Tiss) [facility] Work Phone: Encounters Encounter Date Encounter Type Care Provider Facility Start: 12-02-2024 End: 12-02-[address] Faraz Merritt MD Work Phone: -Laboratory Phy Office 3rd Flr Start: 12-02-2024 End: 12-02-[address] Faraz Merritt MD -Laboratory Phy Office 3rd Flr Start: 12-02-2024 End: 12-02-2024 ambulatory Faraz Merritt Facility:[facility] Start: 08-11-2024 End: 08-11-[address] Faraz Merritt MD Work Phone: [facility] Work Phone: Start: 08-11-2024 End: 08-11-[address] Faraz Merritt MD -Laboratory Work Phone: Start: 08-11-2024 End: 08-11-2024 ambulatory [facility] Facility:[facility] Start: 02-12-2024 End: 02-12-2024 ambulatory [facility] Facility:[facility] Start: 08-12-2023 End: 08-12-2023 ambulatory [facility] Work Phone: Start: 08-12-2023 End: 08-12-2023 Patient encounter procedure [facility]-Laboratory, Phy Office 3rd Flr Start: 02-10-2023 End: 02-10-2023 ambulatory [facility] Work Phone: Start: 02-10-2023 End: 02-10-2023 Patient encounter procedure [facility]-Laboratory, Phy Office 3rd Flr Start: 08-07-2022 End: 08-07-2022 ambulatory [facility] Work Phone: Start: 08-07-2022 End: 08-07-2022 Patient encounter procedure [facility]-Laboratory, Phy Office 3rd Flr Start: 03-22-2022 End: 03-22-2022 ambulatory [facility] Work Phone: Start: 03-22-2022 End: 03-22-2022 Patient encounter procedure [facility]-Pulmonary Services/Neurology Start: 02-06-2022 End: 02-06-2022 ambulatory [facility] Work Phone: Start: 02-06-2022 End: 02-06-2022 Patient encounter procedure [facility]-Laboratory, Phy Office 3rd Flr Procedures Date Procedure Procedure Detail Performing Clinician Start: 08-11-2024 Vitamin D, 25-hydrox y measurement Dr. Faraz Merritt MD Work Phone: Comment on above: Vitamin D StatusDefi ciency: <20 ng/mL (50nmol/L)Insufficiency: 20-30 ng/mL (50-75 nmol/L)Sufficiency: 30-100 ng/mL (75-250 nmol/L)Toxicity: >100 ng/mL (>250 nmol/L) H/O: surgery History of basal cell carcinoma excision Comment on above: surgical preparation 3.5 cm basal cell carcinoma wound base of left nostril involving the external vestibule and extending onto the nasal floor of the nasal cavity, lateral nasal alar rim laterally, base of columella medially, and skin of upper lip and philtrum inferiorly, with re-excision positive margin medially at the 9 o'clock margin involving the columella and the philtrum - . Surgical preparation left upper lip and philtrum with excision basal cell carcinoma from base of left nostril.2. Excision 2 cm basal cell carcinoma base of left nostril involving the external vestibule and extending onto the nasal floor of the nasal cavity, lateral nasal alar rim laterally, base of columella medially with partial rhinectomy.3. Intradermal excision 7 mm actinic lesion nasal dorsum, superior, with possible small focus of basal cell carcinoma.4. Intradermal excision 7 mm actinic lesion nasal dorsum, inferior - 03/30/21 Influenza Types A,B Direct FA (SHONDA) Respiratory syncytia l virus antigen assay Payers Date Payer Category Payer Self-pay [id number] 2010 Medicare [id number] [facility] [id number] Unknown [id number] Unknown [id number] Unknown [id number] Social History Date Type Detail Facility Start: 06-12-2021 End: 06-12-2021 Tobacco smoking status NHIS Unknown if ever smoked [facility] Start: 1945 Sex Assigned At Female [facility] Start: 06-12-2021 [facility] Evaluation note Note Date & Type Note Facility Evaluation note No assessment information availa ble [facility] Work Phone: Reason for referral (narrative) Note Date & Type Note Facility Reason for referral (narrative) No reason for referral information available [facility] Work Phone: Family History No Family History Records Found Relationship Condition Age at Onset Recorded Date/T sienna Not Specified Family history of ma lignant neoplasm of skin Unknown daughter Alcoholism Unknown Alcoholic cirrhosis Unknown Malignant neoplasm of skin Unknown father Angina at rest Unknown Hypertension Unknown son Anxiety Unknown Diabetes mellitus Unknown grandmother Arthritis Unknown mother Diabetes mellitus Unknown grandmother Cerebrovascular accident (CVA) Unknown brother Malignant neoplasm Unknown sister Cardiac disease Unknown brother Malignant neoplasm of lung Unknown Advance Directives No Advanced Directives Records Found Advance Directive Response Recorded Date/ Time Living Will No April 05, 021 2:06pm Power of Shell Machine 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 No April 05, 2021 2:06pm Advance Directive Response Recorded Date/ Time Living Will No April 05 021 1:06pm Power of [employer] Machine Operator No April 05, 2021 1:06pm Chief Complaint and Reason for Visit Chief Complaint CHILLS WITHOUT FEVER Summary Purpose Additional Source Comments Goals (unrecognized section and content) Goals may be documented in a n alternate sectionGoals may be documented in an alternate sectionGoals may be documented in an alternate sectionGoals may be documented in an alternate sectionGoals may be documented in an alternate sectionGoals may be documented in an alternate sectionGoals may be documented in an alternate section Care Teams (unrecognized sec tion and content) Team Status: Active Member Role Status Dates Dr. Faraz Merritt MD Family Provider Active Dr. Faraz Merritt MD Primary Care Provider Active Team Status: Inactive Member Role Status Dates Dr. Faraz Merritt MD Primary Care Provider, Attending Provider Active Team Status: Inactive Member Role Status Dates Dr. Faraz Merritt MD Primary Care Provider Active Start: August 11, 2024 End: August 11, 2024 Dr. Faraz Merritt MD Attending Provider Active Start: August 11, 2024 End: August 11, 2024 Dr. Faraz Merritt MD Referring Provider Active Start: August 11, 2024 End: August 11, 2024 Team Status: Active Member Role/Relationship Status Dates Dr. Faraz Merritt MD Family Provider Active Dr. Faraz Merritt MD Primary Care Provider Active Team Status: Inactive Member Role/Relationship Status Dates Dr. Faraz Merritt MD Primary Care Provider Active Start: August 11, 2024 End: August 11, 2024 Dr. Faraz Merritt MD Attending Provider Active Start: August 11, 2024 End: August 11, 2024 Dr. Faraz Merritt MD Referring Provider Active Start: August 11, 2024 End: August 11, 2024 Team Status: Inactive Member Role/Relationship Status Dates Dr. Faraz Merritt MD Primary Care Provider Active Start: December 02, 2024 End: December 02, 2024 Dr. Faraz Merritt MD Attending Provider Active Start: December 02, 2024 End: December 02, 2024 INFORMATION SOURCE (unrecogn ized section and content) DATE CREATED AUTHOR 12/10/2024 [facility] FOR RECORDS PERTAINING TO PATIENTS WHO ARE OR HAVE BEEN ENROLLED IN A CHEMICAL DEPENDENCY/SUBSTANCEABUSE PROGRAM, SOME INFORMATION MAY BE OMITTED. This clinical summary was aggregated from multiple sources. Caution should be exercised in using it in the provision of clinical care. This summary normalizes information from multiple sources, and as a consequence, information in this document may materially change the coding, format and clinical context of patient data. In addition, data may be omitted in some cases. CLINICAL DECISIONS SHOULD BE BASED ON THE PRIMARY CLINICAL RECORDS. [employer] provides no warranty or guarantee of the accuracy or completeness of information in this document.
--- NOTE | 2025-01-29 21:08 | ED.VIS.LOWEX ---
HPI History of Present Illness Chief Complaint: Lower Extremity Injury Informant: patient Narrative Narrative: Patient is an 79-year-old female on 81 mg aspirin daily reports easy bruising presenting with bruising and swelling to her right lower nolasco. She states she was shopping and felt it hit something and then had pain, swelling and bruising to her leg. States it almost fell like she got shot by a BB gun. She had worsening bruising and swelling today now tracking to her lateral ankle and came in for further evaluation she is worried she had a clot in her leg. No other complaints or concerns at this time. Notes she has some chronic swelling and prior injuries to her right ankle. Denies a history of DVT or PE. No other complaint or concern reported at this time. [facility] Medical History Actinic keratosis Allergies Anxiety Arthritis Back pain Basal cell carcinoma (BCC) of left side of nose Basal cell carcinoma of skin of left upper lip Blackout Bladder disease Bone fracture Carpal tunnel syndrome of right wrist Cataracts, bilateral Diabetes Diabetes type 2, controlled Dietary restriction Easy bruising Family history of skin cancer Hemoglobin A1c less than 7.0% High blood pressure High cholesterol History of basal cell carcinoma (BCC) of skin History of edema History of stress test Hypertension Injury of back Injury of head and neck Leg cramps Migraine headache Neoplasm of unspecified behavior of bone, soft tissue, and skin Open wound of lip, complicated Open wound of nasal cavity with complication Shortness of breath on exertion Smoker UTI (urinary tract infection) Wears dentures Wears glasses Home Medications ?Medication ?Instructions ?Recorded ?Last Taken ?Type diazepam 10 mg tablet 10 mg PO DAILY 11/06/15 04/09/21 History diltiazem HCl 240 mg 240 mg PO DAILY 11/06/15 04/09/21 History capsule,extended release 24 hr hydrochlorothiazide 25 mg tablet 25 mg PO DAILY 11/06/15 Unknown History metformin 500 mg tablet 500 mg PO BID 11/06/15 Unknown History potassium chloride 20 mEq 20 meq PO BID 11/06/15 Unknown History tablet,extended release(part/cryst) (Klor-Con M) simvastatin 80 mg tablet 80 mg PO QHS 11/06/15 Unknown History aspirin 81 mg tablet,delayed 81 mg PO DAILY 01/09/21 Unknown History release (Adult Low Dose Aspirin) Held on 04/09/21. Instructions: Resume on 05/07/21. tentative date. cholecalciferol (vitamin D3) 50 50 mcg PO DAILY 03/23/21 Unknown History mcg (2,000 unit) capsule (Vitamin D3) garlic 2,000 mg PO DAILY 03/23/21 Unknown History omega-3 fatty acids 1,000 mg PO DAILY 03/23/21 Unknown History vitamin Y00-fuahoswol factor 110 1 cap PO DAILY 03/23/21 Unknown History mg-0.5 mg capsule gabapentin 300 mg capsule 300 mg PO QHS nerve pain 30 days 06/12/21 Unknown Rx #30 caps Allergy/AdvReac Type Severity Reaction Status Date / Time Cephalosporins Allergy Mild Other Verified 01/29/25 18:56 pneumococcal vaccine Allergy Mild Other Verified 01/29/25 18:56 tetracycline Allergy Mild Other Verified 01/29/25 18:56 codeine Allergy Unknown Verified 01/29/25 18:56 Sulfa (Sulfonamide Allergy Unknown Verified 01/29/25 18:56 Antibiotics) Family History Daughter Alcoholism Alcoholic cirrhosis of liver Skin cancer Father Angina at rest Hypertension Son Anxiety Diabetes Hypertension Skin cancer Grandmother Arthritis Mother Diabetes Grandmother CVA (cerebral vascular accident) Brother Cancer Diabetes Sister Heart disease Brother Lung cancer Other Family history of skin cancer Surgical History History of basal cell carcinoma excision History of carpal tunnel release History of left knee surgery Social History Smoking Status: Current some day smoker tobacco type: cigarettes second hand exposure: Yes alcohol intake: never substance use type: does not use additional social history: Does Take Aspirin Low Dose Daily Does Not Take Ibuprofen ROS ROS ED Constitutional Constitutional ED: Denies chills or fever(s) Musculoskeletal Musculoskeletal: Reports other Details: right lower leg pain Integumentary Reports other Details: Bruising to the right lower leg Neurologic Neurologic: Denies paresthesias or weakness Hematologic/Lymphatic Hematologic/Lymphatic: Reports easy bruising EXAM Physical Exam Const Vital Signs: 01/29/25 18:54 01/29/25 21:15 Temperature 98 F 98 F Temperature Source Oral Pulse Rate 77 61 Respiratory Rate 18 18 Blood Pressure 172/73 H 166/65 H Blood Pressure Mean 106 98 Pulse Ox 99 94 Oxygen Delivery Method Room Air Positive well nourished and well developed General Appearance ED: well developed and NAD Neck supple Chest Wall inspection of chest normal Resp normal respiratory effort Cardio regular rate and regular rhythm Cardio Narrative: 2+ DP pulses Extremity Extremity Narrative: Contusion and hematoma noted to the right mid anterior nolasco with associated ecchymosis tracking down the nolasco and soft tissue swelling to the right lateral ankle. There are some pitting edema of the lateral right ankle. No pedal edema present. Normal range of motion of the foot and ankle. Compartments are soft. No palpable cords present. Normal Rosario test. Neuro oriented x3, moves all extremities and no sensory deficits noted Psych mental status grossly normal Skin Skin Narrative: Changes to the right lower extremity. No associated erythema or warmth. No lymphangitic streaking present MDM MDM MDM Narrative Medical decision making narrative: Patient evaluated for's injury that occurred yesterday to her right lower leg with associated bruising and swelling. Exam most consistent with contusion/hematoma. X-ray of the tibia/fibula is obtained to look for any underlying fracture. This is reviewed by myself as well as radiology does not show any acute fracture or dislocation. She does have chronic changes which she was aware of. Discussed at length with patient and family and they are that while she does have blood collection that is clotted (hematoma) this is not a DVT and not how DVT is present. She verbalizes understanding of this. I do not think she requires ultrasound of the leg. She has good distal pulses I do not think there is more severe compartment syndrome or other process. Patient counseled on RICE therapy. Miguel wrap applied to her leg. Given return precautions. Discharged home in stable condition. Radiography Diagnostic Testing: Clinical Impression(s) from Imaging Studies Tibia/Fibula X-Ray 01/29/25 20:09 IMPRESSION: No acute fracture or dislocation. Chronic/degenerative changes as described. Reading Location: [id number] Discharge Plan Triage Chief Complaint: Lower Extremity Injury ED Provider: Michelle Portillo Dx/Rx/DC Orders Clinical Impression: Contusion of right lower extremity, Hematoma Instructions: ED Hematoma Prescriptions: No Action aspirin [Adult Low Dose Aspirin] 81 mg tablet,delayed release (DR/EC) 81 mg PO DAILY gabapentin 300 mg capsule 300 mg PO QHS 30 Days Qty: 30 1RF metformin 500 MG tablet 500 mg PO BID Patient Comments: TAKE 1 TABLET BY MOUTH TWICE DAILY diltiazem HCl 240 MG capsule,extended release 24hr 240 mg PO DAILY Patient Comments: simvastatin 80 MG tablet 80 mg PO QHS Patient Comments: potassium chloride [Klor-Con M20] 20 MEQ tablet,ER particles/crystals 20 meq PO BID Patient Comments: TAKE 1 TABLET TWICE DAILY hydrochlorothiazide 25 MG tablet 25 mg PO DAILY Patient Comments: TAKE 1 TABLET EVERY DAY diazepam 10 MG tablet 10 mg PO DAILY Patient Comments: TAKE 1 TABLET EVERY DAY NEEDED garlic Capsule 2,000 mg PO DAILY omega-3 fatty acids Capsule 1,000 mg PO DAILY vitamin U07-ubaqagpfr factor 110-0.5 mg Capsule 1 cap PO DAILY cholecalciferol (vitamin D3) [Vitamin D3] 50 mcg (2,000 unit) Capsule 50 mcg PO DAILY Primary Care Provider: Faraz Merritt Chi Referrals: Faraz Merritt Chi, MD [Primary Care Provider, Geriatrics] Activity Restrictions/Additional Instructions: Your bruising is consistent with contusion/hematoma. This is not consistent with a DVT (deep vein thrombosis). I do not think you need an ultrasound of your leg. Your x-ray did not show any broken bones. Wear Miguel wrap to help with compression, elevate and ice the leg is much as possible. You may take ibuprofen or Tylenol as needed for discomfort. Print Language: Icelandic Disposition Disposition: Home, Self Care Discharge Date/Time: 01/29/25 21:22
[2025-01-29 21:15] VITALS: BP 166/65; PULSE 61; RESP 18; TEMP 36.6; O2SAT 94
== END 2025-01-29 21:22 | disposition home or self-care (01) ==
PROVIDERS: Emergency Provider Emergency Medicine; PCP Family Medicine Geriatric Medicine; Visit Provider Emergency Medicine
DX: S80.11XA Contusion of right lower leg, initial encounter (principal); E11.9 Type 2 diabetes mellitus without complications; Z79.82 Long term (current) use of aspirin; E78.00 Pure hypercholesterolemia, unspecified; I10 Essential (primary) hypertension; F17.210 Nicotine dependence, cigarettes, uncomplicated; S80.811A Abrasion, right lower leg, initial encounter; W22.09XA Striking against other stationary object, initial encounter; Y92.512 Supermarket, store or market as the place of occurrence of the external cause
CPT/HCPCS: 73590; 99282

== ENCOUNTER → 2025-02-14 | Outpatient (CLI) | payer MEDICARE, SELFPAY ==
[2025-02-14 11:46] LABS: Hematocrit 40.0 % (37-47); Hemoglobin 13.2 g/dL (12.0-15.0); Immature Granulocytes Count 0.020 X10^3/uL (0.0-0.0); Mean Corp Hgb Conc 33.0 g/dL (32-36); Mean Corpuscular Volume 92.2 fL (81-99); Mean Platelet Vol. 9.8 fl (6.2-12.0); NRBC Flagged by Analyzer 0 % (0-5); Platelet Count 326 K/mm3 (150-450); RBC Distribution Width CV 13.7 % (11.6-14.6); RBC Distribution Width SD 46.8 fl (35.1-43.9); Red Blood Count 4.34 M/mm3 (4.2-5.4); White Blood Count 8.6 K/mm3 (4.4-11.0)
[2025-02-14 12:59] LABS: Creatinine, Urine (random) 88.20 mg/dL (28.00-217.00); Microalbumin,Random Urine < 12.0 mg/L (<20 mg/L)
[2025-02-14 13:05] LABS: AST(SGOT) 21 U/L (<=31); Alanine Aminotransfer ALT/SGPT 14 U/L (<=34); Albumin, Serum 4.3 g/dL (3.4-4.8); Alkaline Phosphatase 88 U/L (35-104); Anion Gap 10 (5-15); BUN 21 mg/dL (4-19); BUN/Creat Ratio 30.8 RATIO (10-20); Calcium,Total 9.8 mg/dL (7.6-11.0); Carbon Dioxide 23.3 mmol/L (21.0-32.0); Chloride 106 mmol/L (98-108); Cholesterol 148 mg/dL (<=200); Globulin 2.6 g/dL (2.2-4.2); Glucose 96 mg/dL (70-99); Low Density Lipoprotein Calc. 70 mg/dL; Potassium 3.9 mmol/L (3.3-5.1); Triglycerides 59 mg/dL; Very Low Density Lipoprotein 12 mg/dL (5-40); Vitamin D,25 Hydroxy 30.3 ng/mL (30-100); cholesterol:hdl ratio screen 2.23
[2025-02-14 19:33] LABS: Xtra Tube Kwok EXTRA TUBE
== END | disposition home or self-care (01) ==
LOC: POLAB3 11:33
PROVIDERS: PCP Family Medicine Geriatric Medicine; Visit Provider Family Medicine Geriatric Medicine
DX: E78.5 Hyperlipidemia, unspecified (principal); E11.65 Type 2 diabetes mellitus with hyperglycemia; E03.9 Hypothyroidism, unspecified; I10 Essential (primary) hypertension; E55.9 Vitamin D deficiency, unspecified
CPT/HCPCS: 36415; 80053; 80061; 82043; 82306; 82570; 83036; 84443; 85025